=== PATIENT | male | born 1960 | race African-American/Black ===

== ENCOUNTER 2017-08-18 19:26 | Inpatient (IN) | payer OTHER ==
[2017-08-18] MEDS ORDERED: OXYCODONE-ACETAMINOPHEN 5-325 MG TABLET PO ONE (21:51)
--- NOTE | 2017-08-18 21:53 | ER Document Report ---
ED Medical Screen (RME) - General Chief Complaint: Leg Swelling Stated Complaint: LEG PAIN Time Seen by Provider: 08/18/17 21:29 Mode of Arrival: Wheelchair Information source: Patient Notes: Patient with a history of chronic kidney disease stage III, hypertension, diabetes, CHF and A. fib. Patient states that he has had left knee pain and right foot pain for the past 4 days. Patient complains of swelling to the left knee. Patient denies any injury. Patient does also complain of some fluid retention and does report some exertional shortness of breath. Patient without any chest pain. Patient denies any history of gout. Patient states that he did not take any of his morning medications today as he was having knee pain that prevented him from getting up to take his medications. TRAVEL OUTSIDE OF THE [place] IN LAST 30 DAYS: No - Related Data Allergies/Adverse Reactions: No Known Allergies Allergy (Unverified 08/18/17 20:00) Physical Exam - Vital signs Vitals: Temp Pulse Resp BP Pulse Ox 98.4 F 70 20 179/102 H 96 08/18/17 20:02 08/18/17 20:02 08/18/17 20:02 08/18/17 20:02 08/18/17 20:02 - Extremities General lower extremity: Tender - Left knee joint tenderness, large effusion, mild erythema to the medial aspect of left knee Course - Vital Signs Vital signs: Temp Pulse Resp BP Pulse Ox 98.4 F 70 20 179/102 H 96 08/18/17 20:02 08/18/17 20:02 08/18/17 20:02 08/18/17 20:02 08/18/17 20:02
[2017-08-18] MEDS ORDERED: FUROSEMIDE INJ/PF 20 MG/2 ML SDV IV ONE (22:05)
[2017-08-18 22:33] LABS: ABSOLUTE BASOPHILS # (AUTO) 0.1 10^3/uL (0.0-0.2); ABSOLUTE EOSINOPHILS # (AUTO) 0.3 10^3/uL (0.0-0.6); ABSOLUTE LYMPHOCYTES (AUTO) 1.5 10^3/uL (0.5-4.7); ABSOLUTE MONOCYTES (AUTO) 1.2 10^3/uL (0.1-1.4); ABSOLUTE NEUT (AUTO) 8.1 10^3/uL (1.7-8.2); BASOPHILS % (AUTO) 0.6 % (0-2); EOSINOPHILS % (AUTO) 3.1 % (0-6); HEMATOCRIT 43.2 % (37.9-51.0); HEMOGLOBIN 14.8 g/dL (13.5-17.0); HGB HCT DIFFERENCE 1.2; LYMPHOCYTES % (AUTO) 13.4 % (13-45); MEAN CORPUSCULAR HEMOGLOBIN 31.4 pg (27.0-33.4); MEAN CORPUSCULAR HGB CONC 34.2 g/dL (32.0-36.0); MEAN CORPUSCULAR VOLUME 92 fl (80-97); MONOCYTES % (AUTO) 10.4 % (3-13); RED CELL DISTRIBUTION WIDTH 14.1 % (11.5-14.0); SEGMENTED NEUTROPHILS % (AUTO) 72.5 % (42-78); WHITE BLOOD COUNT 11.1 10^3/uL (4.0-10.5)
[2017-08-18 22:53] LABS: ALANINE AMINOTRANSFERASE 105 U/L (21-72); ALKALINE PHOSPHATASE 162 U/L (38-126); ANION GAP 15 (5-19); ASPARTATE AMINO TRANSFERASE 44 U/L (17-59); BILIRUBIN,DIRECT 0.5 mg/dL (0.0-0.4); BILIRUBIN,TOTAL 1.1 mg/dL (0.2-1.3); BLOOD UREA NITROGEN 19 mg/dL (7-20); CALCIUM 9.2 mg/dL (8.4-10.2); CARBON DIOXIDE 24 mmol/L (22-30); CHLORIDE 107 mmol/L (98-107); CREATININE RESULT 1.78 mg/dL (0.52-1.25); GLUCOSE 110 mg/dL (75-110); POTASSIUM 4.2 mmol/L (3.6-5.0); SODIUM 145.5 mmol/L (137-145); TOTAL PROTEIN 7.7 g/dL (6.3-8.2); URIC ACID 5.9 mg/dL (3.5-8.5)
--- NOTE | 2017-08-18 23:06 | RADIOLOGY REPORT (SQ) ---
EXAM DESCRIPTION: CHEST PA/LAT COMPLETED DATE/TIME: 08/18/2017 10:58 pm REASON FOR STUDY: exertional sob COMPARISON: None. EXAM PARAMETERS: NUMBER OF VIEWS: two views TECHNIQUE: Digital Frontal and Lateral radiographic views of the chest acquired. RADIATION DOSE: NA LIMITATIONS: none FINDINGS: LUNGS AND PLEURA: No opacities, masses or pneumothorax. No pleural effusion. MEDIASTINUM AND HILAR STRUCTURES: No masses or contour abnormalities. HEART AND VASCULAR STRUCTURES: Heart normal size. No evidence for failure. BONES: No acute findings. HARDWARE: None in the chest. OTHER: No other significant finding. IMPRESSION: NO SIGNIFICANT RADIOGRAPHIC FINDING IN THE CHEST. TECHNICAL DOCUMENTATION: JOB ID: [id number] [employer]- All Rights Reserved
--- NOTE | 2017-08-18 23:06 | RADIOLOGY REPORT (SQ) ---
EXAM DESCRIPTION: FOOT RIGHT COMPLETE COMPLETED DATE/TIME: 08/18/2017 10:58 pm REASON FOR STUDY: r foot pain COMPARISON: None. NUMBER OF VIEWS: Three views. TECHNIQUE: AP, lateral and oblique without weight bearing radiographic images acquired of the right foot. LIMITATIONS: None. FINDINGS: MINERALIZATION: Normal. BONES: No acute fracture or dislocation. No worrisome bone lesions. No significant osteophytes. JOINTS: No erosions. No shelbi-articular osteopenia. No chondrocalcinosis. SOFT TISSUES: No swelling. No calcifications. OTHER: No other significant finding. IMPRESSION: NEGATIVE STUDY OF THE RIGHT FOOT. NO EXPLANATION FOR PAIN. TECHNICAL DOCUMENTATION: JOB ID: [id number] [employer]- All Rights Reserved
--- NOTE | 2017-08-18 23:07 | RADIOLOGY REPORT (SQ) ---
EXAM DESCRIPTION: KNEE LEFT 4 VIEW COMPLETED DATE/TIME: 08/18/2017 10:58 pm REASON FOR STUDY: knee pain, swelling COMPARISON: None. NUMBER OF VIEWS: Four views. TECHNIQUE: AP, lateral, and both oblique radiographic images acquired of the left knee. LIMITATIONS: None. FINDINGS: MINERALIZATION: Normal. BONES: No acute fracture or dislocation. No worrisome bone lesions. Joint space narrowing with osteop hytes, most prominent in the patellofemoral compartment. JOINT: No effusion. No chondrocalcinosis. OTHER: No other significant finding. IMPRESSION: DEGENERATIVE JOINT DISEASE. TECHNICAL DOCUMENTATION: JOB ID: [id number] [employer]- All Rights Reserved
--- NOTE | 2017-08-19 00:48 | ER Document Report ---
ED General - General Chief Complaint: Leg Swelling Stated Complaint: LEG PAIN Time Seen by Provider: 08/18/17 21:29 Mode of Arrival: Wheelchair Notes: Patient is a 57-year-old male who presents with complaint of gradual worsening pain and swelling in his left knee for approximately 3 days. Says some subjective fevers but has not checked his temp. He said he also had some slight pain in his ankle but that went away. He has edema in both lower extremities and says that he is on Lasix and has a history of CHF. He also has history of atrial fibrillation and takes Coumadin. Patient says he did not take his Coumadin or his nighttime medications today. His primary care provider is Yumiko Ramos. He denies any recent trauma or injuries to the knee. He denies history of gout. He denies history of surgeries on the knee. TRAVEL OUTSIDE OF THE [place] IN LAST 30 DAYS: No - Related Data Allergies/Adverse Reactions: No Known Allergies Allergy (Unverified 08/18/17 20:00) Past Medical History - General Information source: Patient - Social History Smoking Status: Never Smoker Frequency of alcohol use: None Drug Abuse: None Family History: Reviewed & Not Pertinent Review of Systems - Review of Systems Notes: My Normal Review Basic REVIEW OF SYSTEMS: CONSTITUTIONAL : Some subjective fever EENT: Denies eye, ear, throat, or mouth pain or symptoms. Denies nasal or sinus congestion. RESPIRATORY: Denies cough, cold, or chest congestion. Denies shortness of breath, difficulty breathing, or wheezing. GASTROINTESTINAL: Denies abdominal pain. Denies nausea, vomiting, or diarrhea. Denies constipation. Last BM: MUSCULOSKELETAL: Left knee pain and swelling. SKIN: Denies rash or skin lesions. NEUROLOGICAL: Denies altered mental status or loss of consciousness. Denies headache. Denies weakness or paralysis or loss of use of either side. Denies problems with gait or speech. Denies sensory or motor loss. ALL OTHER SYSTEMS REVIEWED AND NEGATIVE. Physical Exam - Vital signs Vitals: Temp Pulse Resp BP Pulse Ox 98.4 F 70 20 179/102 H 96 08/18/17 20:02 08/18/17 20:02 08/18/17 20:02 08/18/17 20:02 08/18/17 20:02 - Notes Notes: General Appearance: Well nourished, alert, cooperative, no acute distress, moderate obvious discomfort. Vitals: reviewed, See vital signs table. Head: no swelling or tenderness to the head Eyes: PERRL, EOMI, Conjuctiva clear Mouth: No decreasd moisture Neck: Supple, no neck tenderness Lungs: No wheezing, No rales, No rhonci, No accessory muscle use, good air exchange bilaterally. Heart: Normal rate, Regular rythm, No murmur, no rub Abdomen: Normal BS, soft, No rigidity, No abdominal tenderness, No guarding, no rebound, no abdominal masses, no organomegaly Extremities: strength 5/5 in all extremities, good pulses in all extremities, patient has a red hot swollen left knee. She states held in extension and I am unable to flex it. Patient has 1+ bilateral lower extremity edema. Skin: warm, dry, appropriate color, no rash Neuro: speech clear, oriented x 3, normal affect, responds appropriately to questions. Course - Re-evaluation Re-evalutation: 08/19/17 00:47 I discussed the case with Dr. baron, orthopedic surgeon contact lens assistant. Informed him that even though the patient's white blood cell counts are very elevated and still concern for possibility of septic joint being that his ESR is elevated and clinically his knee is hot red swollen and I am unable to flex it at all. His he is on Coumadin but his INR is only 1.4. Did not take his Coumadin dose today. Dr. Newman feels that is safe for me to attempt aspiration of the knee with an INR of 1.4. We will attempt aspiration. 08/19/17 03:21 Patient synovial fluid analysis came back with a white blood cell count 37,500 with 91% neutrophil predominance. This is indeterminate for septic arthritis but there is more white blood cells than to be expected for a typical inflammatory process. There are no crystals and therefore is highly unlikely to be gout. There is 91% neutrophils. I did call back and speak with Dr. Newman, orthopedic surgeon, who agrees this that this could still be potentially septic arthritis and therefore requests that admit the patient medicine he will see the patient first thing in the morning. I did explain the plan to the patient and he is agreeable to it. Patient has multiple chronic medical problems and therefore I did call the on-call hospitalist, Dr. Juan, who agrees to admit the patient with or without consult. 08/19/17 03:24 Dictation of this chart was performed using voice recognition software; therefore, there may be some unintended grammatical errors. - Vital Signs Vital signs: Temp Pulse Resp BP Pulse Ox 98.4 F 64 16 168/99 H 96 08/18/17 20:02 08/18/17 23:00 08/18/17 23:00 08/18/17 23:00 08/18/17 20:02 - Laboratory Result Diagrams: 08/18/17 22:25 08/18/17 22:25 Laboratory results interpreted by me: 08/18/17 08/18/17 08/18/17 22:25 22:25 22:25 WBC 11.1 H RDW 14.1 H Plt Count 133 L ESR PT 18.0 H Sodium 145.5 H Creatinine 1.78 H Est GFR ( Amer) 48 L Est GFR (Non-Af Amer) 40 L Direct Bilirubin 0.5 H ALT 105 H Alkaline Phosphatase 162 H NT-Pro-B Natriuret Pep 08/18/17 08/18/17 22:25 22:25 WBC RDW Plt Count ESR 57 H PT Sodium Creatinine Est GFR ( Amer) Est GFR (Non-Af Amer) Direct Bilirubin ALT Alkaline Phosphatase NT-Pro-B Natriuret Pep 2430 H Procedures - Joint Aspiration left knee Consent obtained: Yes - verbal Joint aspiration pre-procedure: Chloraprep applied Needle size: 18 Amount/type of drainage: 20mls of cloudy yellow fluid Number of attempts: 1 Complications: No Discharge - Discharge Clinical Impression: Septic arthritis of knee, left Qualifiers: Septic arthritis organism: due to unspecified organism Qualified Code(s): M00.9 - Pyogenic arthritis, unspecified Condition: Stable Disposition: ADMITTED INPATIENT Admitting Provider: Hospitalist Unit Admitted: Medical Floor
[2017-08-19] MEDS ORDERED: CEFTRIAXONE INJ 1000 MG VIAL IV ONE (02:09)
[2017-08-19 02:21] LABS: OTHER CRYSTALS NONE OBSERVED
[2017-08-19] MEDS ORDERED: CEFTRIAXONE 1 GM/D5W RTU 1 GM/50 ML RTUPB IV ONE (02:23)
[2017-08-19 02:40] LABS: FLUID TYPE SYNOVIAL; STAIN REACTIVITY CHECK ACCEPTABLE
[2017-08-19 02:41] LABS: FLUID APPEARANCE SLIGHTLY HAZY
[2017-08-19 02:42] LABS: FLUID RBC DILUENT USED SALINE; FLUID RBC DILUTION FACTOR 20
[2017-08-19] MEDS ORDERED: VANCOMYCIN HCL INJ 1000 MG VIAL IV ONE (02:47)
[2017-08-19 02:54] LABS: FLUID RBC AVERAGE 6.5; FLUID RBC SIDE 1 6; FLUID RBC SIDE 2 7
[2017-08-19 02:59] LABS: TOTAL RBC SQUARES COUNTED FLD 5
[2017-08-19] MEDS ORDERED: NORMAL SALINE 1000 ML 1,000 ML IV PRN (03:21)
[2017-08-19] MEDS ORDERED: ONDANSETRON HCL INJ/PF 4 MG/2 ML SDV IV PRN (03:21)
[2017-08-19] MEDS ORDERED: OXYCODONE-ACETAMINOPHEN 5-325 MG TABLET PO PRN (03:21)
[2017-08-19] MEDS ORDERED: ACETAMINOPHEN 325 MG TABLET PO PRN (03:21)
[2017-08-19] MEDS ORDERED: HEPARIN SODIUM,PORCINE/D5W 25,000 UNIT/250 ML RTUINJ IV PRN (03:27)
[2017-08-19] MEDS ORDERED: HEPARIN SOD (PORCINE) 1,000 UNIT/ML 10 ML VIAL IV ONE (03:27)
[2017-08-19] MEDS ORDERED: INSULIN LISPRO 100 UNIT/ML 3 ML VIAL SUBCUT PRN (03:31)
[2017-08-19] MEDS ORDERED: DEXTROSE 40% GEL 15 GM TUBE PO PRN ×4 (03:31→08:41)
[2017-08-19] MEDS ORDERED: GLUCAGON,HUMAN RECOMB 1 MG INJ IM PRN (03:31)
[2017-08-19] MEDS ORDERED: DEXTROSE 50%-WATER 25 GM/50 ML DISP.SYRIN IV PRN ×4 (03:31→08:41)
[2017-08-19] MEDS ORDERED: VANCOMYCIN HCL 0 MG in DEXTROSE 5%-WATER 250 ML IV NR (03:45)
[2017-08-19] MEDS ORDERED: PHARMACY COMMUNICATION ORDER MC NR (03:45)
[2017-08-19] MEDS ORDERED: VANCOMYCIN HCL INJ 1000 MG VIAL IV PRN (04:02)
--- NOTE | 2017-08-19 04:41 | PDOC H&P ---
History of Present Illness Admission Date/PCP: 08/19/17 03:42 FLACA Patterson History of Present Illness: JOON AHMADI is a 57 year old male with a past medical history of diabetes mellitus, hypertension, atrial fibrillation on Coumadin, congestive heart failure, chronic kidney disease stage III, obstructive sleep apnea untreated, and recent CVA who presents to the emergency department with complaints of left knee swelling since Sunday. Patient reported that he started developing a fever and chills starting today. He reports that he is also had increasing dyspnea on exertion as well as bilateral lower extremity swelling. 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 Patient reports that since that time he has been having some lower extremity swelling as well as testicular swelling and abdominal distention. He recently reported to nephrology who informed him of CKD stage III. Arthrocentesis was performed in the emergency department by Dr. Lucio and a large amount of turbid fluid was removed which points towards septic arthritis. He is referred to the hospitalist service for this. Patient's medications are currently undergoing reconciliation, but bedside review reveals amiodarone 200 mg p.o. twice daily, metformin 500 mg p.o. daily, warfarin 3 mg p.o. every other day, potassium chloride 20 mg p.o. daily, Lasix 40 mg p.o. daily, Coreg 25 mg p.o. twice daily, pravastatin 20 mg p.o. nightly Past Medical History Cardiac Medical History: Reports: Atrial Fibrillation, Congestive Heart Failure , Coronary Artery Disease, Hyperlipidema, Hypertension Pulmonary Medical History: Reports: Sleep Apnea Neurological Medical History: Reports: Ischemic CVA Endocrine Medical History: Reports: Diabetes Mellitus Type 2, Obesity Renal/ Medical History: Reports: Chronic Kidney Disease Musculoskeltal Medical History: Reports: Arthritis Past Surgical History Past Surgical History: Reports: Appendectomy Social History Smoking Status: Never Smoker Frequency of Alcohol Use: None Hx Recreational Drug Use: No Hx Prescription Drug Abuse: No - Advance Directive Resuscitation Status: Full Code Surrogate healthcare decision maker:: Nata Ahmadi, Family History Family History: COPD, DM Parental Family History Reviewed: Yes Children Family History Reviewed: Yes Sibling(s) Family History Reviewed.: Yes Medication/Allergy Home Medications: Amiodarone HCl [Cordarone 200 mg Tablet] 08/19/17 Carvedilol [Carvedilol] 08/19/17 Allergies/Adverse Reactions: No Known Allergies Allergy (Unverified 08/18/17 20:00) Review of Systems Constitutional: PRESENT: chills, fatigue, fever(s), weight gain. ABSENT: headache(s), weight loss Eyes: ABSENT: visual disturbances Ears: ABSENT: hearing changes Cardiovascular: PRESENT: dyspnea on exertion, edema, orthropnea. ABSENT: chest pain, palpitations Respiratory: ABSENT: cough, dyspnea, hemoptysis, sputum Gastrointestinal: PRESENT: bloating. ABSENT: abdominal pain, constipation, diarrhea, heartburn, hematemesis, hematochezia, melena, nausea, vomiting Genitourinary: ABSENT: dysuria, hematuria Musculoskeletal: PRESENT: joint swelling Integumentary: ABSENT: rash, wounds Neurological: ABSENT: abnormal gait, abnormal speech, confusion, dizziness, focal weakness, syncope Psychiatric: ABSENT: anxiety, depression, homidical ideation, suicidal ideation Endocrine: ABSENT: cold intolerance, heat intolerance, polydipsia, polyuria Hematologic/Lymphatic: ABSENT: easy bleeding, easy bruising Physical Exam Vital Signs: Temp Pulse Resp BP Pulse Ox 98.4 F 54 L 20 121/85 96 08/19/17 03:41 08/19/17 03:41 08/19/17 03:41 08/19/17 03:41 08/19/17 03:41 General appearance: PRESENT: no acute distress, morbidly obese, well-developed, well-nourished Head exam: PRESENT: atraumatic, normocephalic Eye exam: PRESENT: conjunctiva pink, EOMI, PERRLA. ABSENT: scleral icterus Ear exam: PRESENT: normal external ear exam Mouth exam: PRESENT: moist, tongue midline Neck exam: ABSENT: JVD, lymphadenopathy, thyromegaly, tracheal deviation Respiratory exam: PRESENT: crackles, symmetrical, unlabored. ABSENT: prolonged expiratory phas, rales, retraction, rhonchi, tachypnea, wheezes Cardiovascular exam: PRESENT: irregular rhythm, +S1, +S2, systolic murmur. ABSENT: diastolic murmur, rubs Pulses: PRESENT: normal dorsalis pedis pul Vascular exam: PRESENT: normal capillary refill GI/Abdominal exam: PRESENT: distended, hypoactive bowel sounds, soft. ABSENT: firm, guarding, mass, Potter's sign, organolmegaly, rebound, rigid, tenderness Rectal exam: PRESENT: deferred Extremities exam: PRESENT: full ROM, pedal edema. ABSENT: calf tenderness, clubbing Musculoskeletal exam: PRESENT: tenderness - Warmth, tenderness, erythema over left knee Neurological exam: PRESENT: alert, awake, oriented to person, oriented to place , oriented to time, oriented to situation, CN II-XII grossly intact. ABSENT: motor sensory deficit Psychiatric exam: PRESENT: appropriate affect, normal mood. ABSENT: homicidal ideation, suicidal ideation Skin exam: PRESENT: dry, intact, warm. ABSENT: cyanosis, rash Results Laboratory Results: 08/18/17 08/18/17 08/18/17 22:25 22:25 22:25 WBC 11.1 H Hgb 14.8 Plt Count 133 L ESR INR 1.40 Creatinine 1.78 H Direct Bilirubin 0.5 H ALT 105 H Alkaline Phosphatase 162 H C-Reactive Protein NT-Pro-B Natriuret Pep Albumin 4.0 Fluid Type Fluid Source Fluid Color Fluid Appearance Fluid Viscosity Fluid WBC Fluid RBC Fluid Seg Neutrophils Fluid Monocytes Fluid Crystals Ca Pyrophosphate Cryst Synov Monosodium Urate 08/18/17 08/18/17 08/18/17 22:25 22:25 22:25 WBC Hgb Plt Count ESR 57 H INR Creatinine Direct Bilirubin ALT Alkaline Phosphatase C-Reactive Protein 76.6 H NT-Pro-B Natriuret Pep 2430 H Albumin Fluid Type Fluid Source Fluid Color Fluid Appearance Fluid Viscosity Fluid WBC Fluid RBC Fluid Seg Neutrophils Fluid Monocytes Fluid Crystals Ca Pyrophosphate Cryst Synov Monosodium Urate 08/19/17 08/19/17 01:16 01:16 WBC Hgb Plt Count ESR INR Creatinine Direct Bilirubin ALT Alkaline Phosphatase C-Reactive Protein NT-Pro-B Natriuret Pep Albumin Fluid Type SYNOVIAL Fluid Source KNEE Fluid Color PINK Fluid Appearance SLIGHTLY HAZY Fluid Viscosity MODERATELY VISCOUS Fluid WBC 15390 Fluid RBC 6500 Fluid Seg Neutrophils 91 Fluid Monocytes 9 Fluid Crystals NONE OBSERVED Ca Pyrophosphate Cryst NONE OBSERVED Synov Monosodium Urate NONE OBSERVED Impressions: Chest X-Ray 08/18/17 21:51 IMPRESSION: NO SIGNIFICANT RADIOGRAPHIC FINDING IN THE CHEST. Foot X-Ray 08/18/17 21:51 IMPRESSION: NEGATIVE STUDY OF THE RIGHT FOOT. NO EXPLANATION FOR PAIN. Knee X-Ray 08/18/17 21:51 IMPRESSION: DEGENERATIVE JOINT DISEASE. Status: Imported from PACS Assessment & Plan - Diagnosis (1) Septic arthritis of knee, left Qualifiers: Septic arthritis organism: due to unspecified organism Qualified Code(s): M00.9 - Pyogenic arthritis, unspecified Is this a current diagnosis for this admission?: Yes Plan: The patient himself does not meet criteria for sepsis, patient does have septic arthritis of the knee. Will place patient on Rocephin and vancomycin and consult orthopedic surgery. Cultures currently pending. (2) Diabetes mellitus Qualifiers: Diabetes mellitus type: type 2 Diabetes mellitus complication status: with kidney complications Diabetes mellitus complication detail: with chronic kidney disease Diabetes mellitus residential insulin use: without residential use Chronic kidney disease stage: stage 3 (moderate) Qualified Code(s): E11.22 - Type 2 diabetes mellitus with diabetic chronic kidney disease; N18.3 - Chronic kidney disease, stage 3 (moderate); N18.3 - Chronic kidney disease, stage 3 (moderate) Is this a current diagnosis for this admission?: Yes Plan: Place patient on Accu-Cheks and sliding scale insulin. patient's creatinine will not tolerate metformin at this time. Will use glimepiride if needed. (3) CKD (chronic kidney disease), stage III Is this a current diagnosis for this admission?: Yes Plan: Renally adjust medications (4) Hypertension Qualifiers: Hypertension type: essential hypertension Qualified Code(s): I10 - Essential (primary) hypertension Is this a current diagnosis for this admission?: Yes Plan: Continue home lisinopril and Coreg. (5) Hyperlipidemia associated with type 2 diabetes mellitus Is this a current diagnosis for this admission?: Yes Plan: Continue pravastatin (6) Obstructive sleep apnea Is this a current diagnosis for this admission?: Yes Plan: Will place his settings for CPAP (7) Morbid obesity with BMI of 40.0-44.9, adult Is this a current diagnosis for this admission?: Yes (8) Atrial fibrillation Qualifiers: Atrial fibrillation type: chronic Qualified Code(s): I48.2 - Chronic atrial fibrillation Is this a current diagnosis for this admission?: Yes Plan: Patient is currently subtherapeutic and his INR due to his kidney function will have to place him on a heparin drip and resume his Coumadin. Patient is on amiodarone and Coreg for this. (9) Congestive heart failure Qualifiers: Congestive heart failure type: unspecified congestive heart failure type Congestive heart failure chronicity: chronic Qualified Code(s): I50.9 - Heart failure, unspecified Is this a current diagnosis for this admission?: Yes Plan: Continue Lasix, Coreg, lisinopril. Would recommend echo if patient does need to go to surgery. - Time Time Spent: 50 to 70 Minutes Medications reviewed and adjusted accordingly: Yes Anticipated discharge: Home with Homehealth Within: Other - Upon improvement of symptomatology - Inpatient Certification Based on my medical assessment, after consideration of the patient's comorbidities, presenting symptoms, or acuity I expect that the services needed warrant INPATIENT care.: Yes I certify that my determination is in accordance with my understanding of Medicare's requirements for reasonable and necessary INPATIENT services [42 CFR 412.3e].: Yes Medical Necessity: Need for IV Antibiotics, Need for Surgery 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
[2017-08-19] MEDS ORDERED: VANCOMYCIN HCL 1,000 MG in DEXTROSE 5%-WATER 250 ML IV ONE (05:00)
[2017-08-19] MEDS ORDERED: HEPARIN SOD (PORCINE) 1,000 UNIT/ML 10 ML VIAL IV PRN ×2 (06:27→09:29)
[2017-08-19 06:55] LABS: PROTHROMBIN TIME 18.2 SEC (11.4-15.4)
[2017-08-19 07:07] LABS: ABSOLUTE BASOPHILS # (AUTO) 0.1 10^3/uL (0.0-0.2); ABSOLUTE EOSINOPHILS # (AUTO) 0.3 10^3/uL (0.0-0.6); ABSOLUTE LYMPHOCYTES (AUTO) 1.7 10^3/uL (0.5-4.7); ABSOLUTE NEUT (AUTO) 6.9 10^3/uL (1.7-8.2); EOSINOPHILS % (AUTO) 2.5 % (0-6); LYMPHOCYTES % (AUTO) 17.4 % (13-45); MEAN CORPUSCULAR HEMOGLOBIN 31.2 pg (27.0-33.4); MEAN CORPUSCULAR HGB CONC 34.1 g/dL (32.0-36.0); MEAN CORPUSCULAR VOLUME 91 fl (80-97); MONOCYTES % (AUTO) 10.2 % (3-13); RED BLOOD COUNT 4.49 10^6/uL (4.35-5.55); SEGMENTED NEUTROPHILS % (AUTO) 68.9 % (42-78)
[2017-08-19 07:33] LABS: PARTIAL THROMBOPLASTIN TIME 151.2 SEC (23.5-35.8)
[2017-08-19] MEDS ORDERED: GLUCAGON,HUMAN RECOMB 1 MG INJ SUBCUT PRN (08:41)
--- NOTE | 2017-08-19 08:59 | PDOC CONSULTATION ---
History of Present Illness Admission Date/PCP: 08/19/17 03:42 Patient complains of: Left knee pain History of Present Illness: JOON JANG is a 57 year old male presented to the emergency room with pain and swelling of his left knee. He states the pain and swelling began Sunday he has had 2 other episodes of fairly similar complaints but states they had subsided after 3 or 4 days in the previous instances. He states in this occurrence he was forced by his family for further evaluation of his issues. In the emergency room patient underwent aspiration which was sent for culture sensitivity and cell count. Patient states his pain is worse with motion or attempted ambulation. He has noticed some fever and chills over the past 24 hours. Pain 9/10 with motion. Denies specific injury to his left knee. Of note patient recently sustained an acute CVA and is currently on chronic Coumadin therapy. Past Medical History Cardiac Medical History: Reports: Atrial Fibrillation, Congestive Heart Failure , Coronary Artery Disease, Hyperlipidema, Hypertension Pulmonary Medical History: Reports: Sleep Apnea Neurological Medical History: Reports: Ischemic CVA Endocrine Medical History: Reports: Diabetes Mellitus Type 2, Obesity Renal/ Medical History: Reports: Chronic Kidney Disease Musculoskeltal Medical History: Reports: Arthritis Psychiatric Medical History: Denies: Depression Past Surgical History Past Surgical History: Reports: Appendectomy Social History Smoking Status: Never Smoker Frequency of Alcohol Use: None Hx Recreational Drug Use: No Drugs: None Hx Prescription Drug Abuse: No - Advance Directive Resuscitation Status: Full Code Family History Family History: COPD, DM Parental Family History Reviewed: No Children Family History Reviewed: No Sibling(s) Family History Reviewed.: No Medication/Allergy Home Medications: Amiodarone HCl [Cordarone 200 mg Tablet] 200 mg PO BID 08/19/17 Carvedilol [Carvedilol] 25 mg PO BID 08/19/17 Furosemide [Lasix] 40 mg PO DAILY 08/19/17 Lisinopril 20 mg PO BID 08/19/17 Potassium Citrate [Potassium Citrate ER] 20 meq PO DAILY 08/19/17 Pravastatin Sodium 20 mg PO QHS 08/19/17 Warfarin Sodium 3 mg PO ASDIR PRN 08/19/17 Allergies/Adverse Reactions: No Known Allergies Allergy (Unverified 08/18/17 20:00) Review of Systems Constitutional: PRESENT: chills, fever(s) Eyes: ABSENT: visual disturbances Ears: ABSENT: hearing changes Cardiovascular: PRESENT: dyspnea on exertion, orthropnea. ABSENT: chest pain, edema, palpitations Respiratory: ABSENT: cough, hemoptysis Gastrointestinal: ABSENT: abdominal pain, constipation, diarrhea, hematemesis, hematochezia, nausea, vomiting Genitourinary: ABSENT: dysuria, hematuria Integumentary: ABSENT: rash, wounds Neurological: ABSENT: abnormal gait, abnormal speech, confusion, dizziness, focal weakness, syncope Psychiatric: ABSENT: anxiety, depression, homidical ideation, suicidal ideation Endocrine: ABSENT: cold intolerance, heat intolerance, menstrual abnormalities, polydipsia, polyuria Hematologic/Lymphatic: ABSENT: easy bleeding, easy bruising, lymphadenopathy Physical Exam Vital Signs: Temp Pulse Resp BP Pulse Ox 97.8 F 51 L 18 141/78 H 97 08/19/17 08:02 08/19/17 08:02 08/19/17 08:02 08/19/17 08:02 08/19/17 08:02 Intake & Output 08/18/17 08/19/17 08/20/17 06:59 06:59 06:59 Weight 124.9 kg General appearance: PRESENT: no acute distress, cooperative, obese, well- developed, well-nourished Head exam: PRESENT: atraumatic, normocephalic Eye exam: PRESENT: conjunctiva pink, EOMI, PERRLA. ABSENT: scleral icterus Ear exam: PRESENT: normal external ear exam Mouth exam: PRESENT: moist, tongue midline Neck exam: PRESENT: full ROM. ABSENT: carotid bruit, JVD, lymphadenopathy, thyromegaly Respiratory exam: PRESENT: unlabored Cardiovascular exam: PRESENT: irregular rhythm. ABSENT: diastolic murmur, rubs , systolic murmur Pulses: PRESENT: normal dorsalis pedis pul, +2 pedal pulses bilateral Vascular exam: PRESENT: normal capillary refill GI/Abdominal exam: PRESENT: normal bowel sounds, soft. ABSENT: distended, guarding, mass, organolmegaly, rebound, tenderness Rectal exam: PRESENT: deferred Musculoskeletal exam: PRESENT: other - Left knee: Notable effusion with warmth compared to right knee. No suprapatellar tenderness. Exquisite tenderness medially. Pain with attempted range of motion. No calf tenderness. No posterior joint line tenderness. No open wound appreciated. Intact plantar flexion/dorsiflexion. Neurological exam: PRESENT: alert, awake, oriented to person, oriented to place , oriented to time, oriented to situation, CN II-XII grossly intact. ABSENT: motor sensory deficit Psychiatric exam: PRESENT: appropriate affect, normal mood. ABSENT: homicidal ideation, suicidal ideation Skin exam: PRESENT: dry, intact, warm. ABSENT: cyanosis, rash Results Laboratory Results: 08/19/17 06:28 08/19/17 06:28 WBC 10.0 RBC 4.49 Hgb 14.0 Hct 41.0 MCV 91 MCH 31.2 MCHC 34.1 RDW 14.0 Plt Count 121 L Seg Neutrophils % 68.9 Lymphocytes % 17.4 Monocytes % 10.2 Eosinophils % 2.5 Basophils % 1.0 Absolute Neutrophils 6.9 Absolute Lymphocytes 1.7 Absolute Monocytes 1.0 Absolute Eosinophils 0.3 Absolute Basophils 0.1 Impressions: Chest X-Ray 08/18/17 21:51 IMPRESSION: NO SIGNIFICANT RADIOGRAPHIC FINDING IN THE CHEST. Foot X-Ray 08/18/17 21:51 IMPRESSION: NEGATIVE STUDY OF THE RIGHT FOOT. NO EXPLANATION FOR PAIN. Knee X-Ray 08/18/17 21:51 IMPRESSION: DEGENERATIVE JOINT DISEASE. Status: Image reviewed by wv - I have reviewed patient's radiographs which demonstrate advanced degenerative changes of the knee which are tricomponent compartmental tricompartmental Assessment & Plan - Diagnosis (1) Septic arthritis of knee, left Qualifiers: Septic arthritis organism: due to unspecified organism Qualified Code(s): M00.9 - Pyogenic arthritis, unspecified Is this a current diagnosis for this admission?: Yes Plan: Patient has a somewhat cloudy picture in terms of definitive cause of his knee pain and swelling but given his fever/chills along with elevated neutrophil count on aspiration this is consistent with possibility of septic arthritis however his 35,000 leukocyte count is somewhat equivocal in nature. But given the concerns of possible septic arthritis I have recommended operative intervention which includes arthroscopic irrigation and debridement. However given his elevated aPTT this would be an absolute contraindication to operative intervention at this juncture furthermore patient has multiple comorbidities including cardiac disease and congestive heart failure it was recommended by the hospitalist service he obtain a cardiology consult and echo prior to operative intervention thus in weighing the risks and benefits of operative treatment today versus in 24 hours given the fact patient remains stable and currently patient does not meet criteria for sepsis I have recommended further medical workup and proceeding with operative intervention within 24 hours however if patient becomes septic would consider more acute operative treatment.
[2017-08-19 09:51] LABS: APPEARANCE,URINE CLEAR; BILIRUBIN,URINE NEGATIVE (NEGATIVE); GLUCOSE, URINE NEGATIVE (NEGATIVE); KETONES,URINE NEGATIVE (NEGATIVE); LEUKOCYTE ESTERASE,URINE NEGATIVE (NEGATIVE); NITRITE,URINE NEGATIVE (NEGATIVE); PROTEIN,URINE 30 mg/dL (NEGATIVE); URINE SPECIFIC GRAVITY 1.027; UROBILINOGEN,URINE NEGATIVE mg/dL (<2.0)
--- NOTE | 2017-08-19 10:14 | PDOC PROGRESS REPORT ---
Subjective Progress Note for:: 08/19/17 Subjective:: This is a follow-up visit for left septic knee. Patient feels that the swelling is less but still has some soreness there. I spoke with Dr. baron this morning who was concerned about his elevated PTT. For this reason patient will not go for washout today but likely tomorrow. Physical Exam Vital Signs: Temp Pulse Resp BP Pulse Ox 97.8 F 51 L 18 141/78 H 97 08/19/17 08:02 08/19/17 08:02 08/19/17 08:02 08/19/17 08:02 08/19/17 08:02 Intake & Output 08/18/17 08/19/17 08/20/17 06:59 06:59 06:59 Weight 124.9 kg GENERAL: This is a well-developed well-nourished obese -[place] male resting in bed currently in no acute distress. HEART: Regular rate and rhythm. No murmurs, rubs or gallops. LUNGS: Clear to auscultation bilaterally with equal rise and fall of the chest. ABDOMEN: Soft, nontender, nondistended with normoactive bowel sounds EXTREMETIES: No clubbing, cyanosis. The left knee looks slightly swollen as compared to the right. There is minimal warmth on palpation. I do not detect any streaking or erythema. 2+ peripheral pulses bilaterally. NEURO: Awake, alert and oriented 3. Cranial nerves II through XII are grossly intact. Results Laboratory Results: 08/19/17 06:28 08/19/17 06:28 WBC 10.0 RBC 4.49 Hgb 14.0 Hct 41.0 MCV 91 MCH 31.2 MCHC 34.1 RDW 14.0 Plt Count 121 L Seg Neutrophils % 68.9 Lymphocytes % 17.4 Monocytes % 10.2 Eosinophils % 2.5 Basophils % 1.0 Absolute Neutrophils 6.9 Absolute Lymphocytes 1.7 Absolute Monocytes 1.0 Absolute Eosinophils 0.3 Absolute Basophils 0.1 Impressions: Chest X-Ray 08/18/17 21:51 IMPRESSION: NO SIGNIFICANT RADIOGRAPHIC FINDING IN THE CHEST. Foot X-Ray 08/18/17 21:51 IMPRESSION: NEGATIVE STUDY OF THE RIGHT FOOT. NO EXPLANATION FOR PAIN. Knee X-Ray 08/18/17 21:51 IMPRESSION: DEGENERATIVE JOINT DISEASE. Assessment & Plan - Diagnosis (1) Septic arthritis of knee, left Qualifiers: Septic arthritis organism: due to unspecified organism Qualified Code(s): M00.9 - Pyogenic arthritis, unspecified Is this a current diagnosis for this admission?: Yes Plan: Plan for washout tomorrow. Tap is already been done and cultures are pending. Dr. Newman requests medical clearance. We will need to wait until the PTT is down. Discontinue heparin drip 6 hours for any planned procedure. (2) CVA (cerebral vascular accident) Qualifiers: CVA mechanism: unspecified Qualified Code(s): I63.9 - Cerebral infarction, unspecified Plan: Is unknown what type of stroke the patient had. Apparently this happened and workup was done [place] month ago. Is unclear if this is related to his A. fib. See management as per A. fib diagnosis. (3) Atrial fibrillation Qualifiers: Atrial fibrillation type: chronic Qualified Code(s): I48.2 - Chronic atrial fibrillation Is this a current diagnosis for this admission?: Yes Plan: The patient is currently on a heparin drip. It looks like he was over bolused on admission. PT is elevated. Heparin has been stopped. I have asked the nursing staff to recheck his labs at noon and based on those labs restart his heparin drip without bolus. Given that he had a stroke last month (as per his report), maintaining him on a heparin drip is important. It is unclear as to whether or not his stroke was precipitated by his A. fib. Patient should be maintained on a heparin drip up until 6 hours prior to any planned procedure tomorrow. Will need to check with Dr. baron to see potentially what time that could be. (4) CKD (chronic kidney disease), stage III Is this a current diagnosis for this admission?: Yes Plan: Stable. Continue amiodarone. Resume Coumadin as appropriate. (5) Congestive heart failure Qualifiers: Congestive heart failure type: unspecified congestive heart failure type Congestive heart failure chronicity: chronic Qualified Code(s): I50.9 - Heart failure, unspecified Is this a current diagnosis for this admission?: Yes Plan: Continue Lasix, lisinopril, carvedilol (6) Diabetes mellitus Qualifiers: Diabetes mellitus type: type 2 Diabetes mellitus complication status: with kidney complications Diabetes mellitus complication detail: with chronic kidney disease Diabetes mellitus terminal gauger insulin use: without terminal gauger use Chronic kidney disease stage: stage 3 (moderate) Qualified Code(s): E11.22 - Type 2 diabetes mellitus with diabetic chronic kidney disease; N18.3 - Chronic kidney disease, stage 3 (moderate); N18.3 - Chronic kidney disease, stage 3 (moderate) Is this a current diagnosis for this admission?: Yes Plan: Continue current regimen. N.p.o. after midnight. (7) Hyperlipidemia associated with type 2 diabetes mellitus Is this a current diagnosis for this admission?: Yes Plan: Continue nystatin. (8) Hypertension Qualifiers: Hypertension type: essential hypertension Qualified Code(s): I10 - Essential (primary) hypertension Is this a current diagnosis for this admission?: Yes Plan: Continue home medications. (9) Morbid obesity with BMI of 40.0-44.9, adult Is this a current diagnosis for this admission?: Yes (10) Obstructive sleep apnea Is this a current diagnosis for this admission?: Yes Plan: Weight loss through dietary changes and exercise as tolerated. - Time Time Spent with patient: 25-34 minutes
[2017-08-19] MEDS ORDERED: (PENDING PHARMACY ID) (Carvedilol [Carvedilol] 25 MG) PO SCH (10:15)
[2017-08-19] MEDS ORDERED: AMIODARONE HCL 200 MG TABLET PO ONE (11:00)
[2017-08-19] MEDS: DOCUSATE SODIUM 100 MG CAPSULE PO SCH ×2 (11:08→17:44)
[2017-08-19] MEDS: CEFTRIAXONE 2 GM/D5W RTU 2 GM/50 ML RTUPB IV SCH (11:09)
[2017-08-19 12:57] LABS: ABSOLUTE EOSINOPHILS # (AUTO) 0.3 10^3/uL (0.0-0.6); ABSOLUTE LYMPHOCYTES (AUTO) 1.5 10^3/uL (0.5-4.7); ABSOLUTE MONOCYTES (AUTO) 1.2 10^3/uL (0.1-1.4); BASOPHILS % (AUTO) 0.5 % (0-2); EOSINOPHILS % (AUTO) 3.1 % (0-6); HEMATOCRIT 41.9 % (37.9-51.0); HEMOGLOBIN 14.3 g/dL (13.5-17.0); LYMPHOCYTES % (AUTO) 15.2 % (13-45); MEAN CORPUSCULAR HEMOGLOBIN 31.6 pg (27.0-33.4); MEAN CORPUSCULAR HGB CONC 34.2 g/dL (32.0-36.0); MEAN CORPUSCULAR VOLUME 92 fl (80-97); RED BLOOD COUNT 4.54 10^6/uL (4.35-5.55); RED CELL DISTRIBUTION WIDTH 14.1 % (11.5-14.0); SEGMENTED NEUTROPHILS % (AUTO) 69.2 % (42-78); WHITE BLOOD COUNT 10.1 10^3/uL (4.0-10.5)
[2017-08-19 13:07] LABS: PROTHROMBIN TIME 16.6 SEC (11.4-15.4)
[2017-08-19 13:08] LABS: PARTIAL THROMBOPLASTIN TIME 36.6 SEC (23.5-35.8)
[2017-08-19] MEDS: HEPARIN SODIUM,PORCINE/D5W 25,000 UNIT/250 ML RTUINJ IV PRN (14:45)
[2017-08-19] MEDS: VANCOMYCIN HCL 1,000 MG in DEXTROSE 5%-WATER 250 ML IV SCH (15:10)
--- NOTE | 2017-08-19 16:20 | PDOC CONSULTATION ---
Consultation Consult Date: 08/19/17 Attending physician:: SHERIN MENDOZA Consult reason:: Preop cardiovascular examination History of Present Illness Admission Date/PCP: 08/19/17 03:42 Patient complains of: Shortness of breath and left knee pain and swelling History of Present Illness: JOON JANG is a 57 year old male presented to the emergency room with pain and swelling of his left knee. He states the pain and swelling began Sunday he has had 2 other episodes of fairly similar complaints but states they had subsided after 3 or 4 days in the previous instances. He states in this occurrence he was forced by his family for further evaluation of his issues. In the emergency room patient underwent aspiration which was sent for culture sensitivity and cell count. Patient states his pain is worse with motion or attempted ambulation. He has noticed some fever and chills over the past 24 hours. Pain 9/10 with motion. Denies specific injury to his left knee. Of note patient recently sustained an acute CVA and is currently on chronic Coumadin therapy. Past Medical History Cardiac Medical History: Reports: Atrial Fibrillation, Congestive Heart Failure , Coronary Artery Disease, Hyperlipidema, Hypertension Pulmonary Medical History: Reports: Sleep Apnea Neurological Medical History: Reports: Ischemic CVA Endocrine Medical History: Reports: Diabetes Mellitus Type 2, Obesity Renal/ Medical History: Reports: Chronic Kidney Disease Musculoskeltal Medical History: Reports: Arthritis Psychiatric Medical History: Denies: Depression Past Surgical History Past Surgical History: Reports: Appendectomy Social History Information Source: Patient Smoking Status: Never Smoker Frequency of Alcohol Use: None Hx Recreational Drug Use: No Drugs: None Hx Prescription Drug Abuse: No - Advance Directive Resuscitation Status: Full Code Surrogate healthcare decision maker:: Patient spouse is the surrogate decision-maker Family History Family History: COPD, DM Parental Family History Reviewed: Yes Children Family History Reviewed: Yes Sibling(s) Family History Reviewed.: Yes - Negative for premature coronary artery disease or sudden cardiac in the family amongst first degree relatives. Medication/Allergy Home Medications: Amiodarone HCl [Cordarone 200 mg Tablet] 200 mg PO Q12 08/19/17 Carvedilol [Carvedilol] 25 mg PO Q12 08/19/17 Furosemide [Lasix] 40 mg PO DAILY 08/19/17 Lisinopril 20 mg PO BID 08/19/17 Potassium Citrate [Potassium Citrate ER] 20 meq PO DAILY 08/19/17 Pravastatin Sodium 20 mg PO QHS 08/19/17 Warfarin Sodium 3 mg PO MOWEFR@1000 PRN 08/19/17 Allergies/Adverse Reactions: No Known Allergies Allergy (Unverified 08/18/17 20:00) Review of Systems Review of Systems: Please see history of present illness and past medical history as wall. Constitutional: No fever or chills reported. Head : No recent chronic headaches, recent head injury. Eyes: No recent eye pain, diplopia, redness, discharge, acute visual changes. Ears: No recent chronic ear pain, acute hearing loss, ear discharge. Oral cavity: No recent ulcerations, bleeding, oral cavity discomfort. Neck: No recent acute neck pain reported. Hematologic: No recent easy bruising or bleeding or hematologic malignancy reported. Lymphatic: No recent lymphatic malignancy, chronic lymphadenopathy reported yet Cardiovascular system review: See history of present illness. Respiratory system review: No recent chronic cough, hemoptysis, blood clots in the lungs reported. Mild Shortness of breath on exertion Gastrointestinal system review: Negative for any recent acute or chronic abdominal pain, hematemesis, melena, recent change in bowel habits. Genitourinary system review: No recent acute or chronic hematuria, flank pain, UTI etc. reported. Skin system review: Negative for any recent abnormal bruising, no rash, no pruritus reported. Neurologic: Prior history of stroke. No seizure disorder. Psychologic: No history of major psychosis or major depression reported. Musculoskeletal: Minor aches and pains reported. Left knee acute swelling. Endocrine: No recent polyuria, polydipsia, recent heat or cold intolerance. Physical Exam Vital Signs: Temp Pulse Resp BP Pulse Ox 97.8 F 51 L 18 141/78 H 97 08/19/17 08:02 08/19/17 08:02 08/19/17 08:02 08/19/17 08:02 08/19/17 08:02 Intake & Output 08/18/17 08/19/17 08/20/17 06:59 06:59 06:59 Weight 124.9 kg Exam: GENERAL: well-nourished and in no acute distress. Alert and oriented x3 HEAD: Atraumatic, normocephalic. EYES: Pupils equal round and reactive to light, extraocular movements intact, sclera anicteric, conjunctiva are normal. ENT: TMs normal, nares patent, oropharynx clear without exudates. Moist mucous membranes. No oral ulcerations or bleeding gums noted NECK: supple without lymphadenopathy. Trachea is central. No cervical or axillary lymphadenopathy noted. Carotids are 2+, JVD WNL LUNGS: Respiration seems nonlabored, no significant accessory muscle action noted. Breath sounds clear to auscultation bilaterally and equal noted. No wheezes rales or rhonchi noted. No significant dullness noted on percussion. CHEST: Palpation of the chest wall shows no significant chest wall tenderness. No other significant abnormalities noted. HEART: [place] CASE COORDINATOR, No PSH, 1/6 TOD aortic area, 1/6 fernandez systolic murmur mitral area, no rubs, no gallops. ABDOMEN: Soft, no significant tenderness appreciated, normoactive bowel sounds. No guarding, no rebound. No rigidity noted . No masses appreciated. EXTREMITIES: Pedal pulses are 1-2+, no calf tenderness noted. No clubbing or cyanosis.trace to 1+ pedal edema noted NEUROLOGICAL: Focused neurological exam showed no significant neurologic deficit. Normal speech, no focal weakness appreciated. PSYCH: Normal mood, normal affect. Judgment and insight within normal limits. SKIN: No significant ecchymosis, rash, ulcerations or signs of pruritus noted. MUSCULOSKELETAL EXAM: No significant joint swelling noted. Left knee swelling and tenderness noted. Results Laboratory Results: 08/19/17 12:43 08/19/17 08/19/17 08/19/17 06:28 09:30 12:43 WBC 10.0 10.1 RBC 4.49 4.54 Hgb 14.0 14.3 Hct 41.0 41.9 MCV 91 92 MCH 31.2 31.6 MCHC 34.1 34.2 RDW 14.0 14.1 H Plt Count 121 L 128 L Seg Neutrophils % 68.9 69.2 Lymphocytes % 17.4 15.2 Monocytes % 10.2 12.0 Eosinophils % 2.5 3.1 Basophils % 1.0 0.5 Absolute Neutrophils 6.9 7.0 Absolute Lymphocytes 1.7 1.5 Absolute Monocytes 1.0 1.2 Absolute Eosinophils 0.3 0.3 Absolute Basophils 0.1 0.0 Urine Color YELLOW Urine Appearance CLEAR Urine pH 6.0 Ur Specific [place] 1.027 Urine Protein 30 H Urine Glucose (UA) NEGATIVE Urine Ketones NEGATIVE Urine Blood NEGATIVE Urine Nitrite NEGATIVE Ur Leukocyte Esterase NEGATIVE Urine WBC (Auto) 0 Urine RBC (Auto) 0 EKG Comments: Twelve-lead EKG shows sinus rhythm, right ventricular hypertrophy with some nonspecific ST-T wave changes. Impressions: Chest X-Ray 08/18/17 21:51 IMPRESSION: NO SIGNIFICANT RADIOGRAPHIC FINDING IN THE CHEST. Foot X-Ray 08/18/17 21:51 IMPRESSION: NEGATIVE STUDY OF THE RIGHT FOOT. NO EXPLANATION FOR PAIN. Knee X-Ray 08/18/17 21:51 IMPRESSION: DEGENERATIVE JOINT DISEASE. Assessment & Plan - Diagnosis (1) Preoperative cardiovascular examination Is this a current diagnosis for this admission?: Yes (2) Paroxysmal atrial fibrillation Is this a current diagnosis for this admission?: Yes (3) Obstructive sleep apnea Is this a current diagnosis for this admission?: Yes (4) Hypertension Qualifiers: Hypertension type: essential hypertension Qualified Code(s): I10 - Essential (primary) hypertension Is this a current diagnosis for this admission?: Yes (5) Diabetes Qualifiers: Diabetes mellitus type: type 2 Diabetes mellitus complication status: with unspecified complications Diabetes mellitus senior care insulin use: 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 status Qualified Code(s): E11.8 - Type 2 diabetes mellitus with unspecified complications Is this a current diagnosis for this admission?: Yes (6) Congestive heart failure (CHF) Qualifiers: Congestive heart failure type: unspecified congestive heart failure type Is this a current diagnosis for this admission?: Yes (7) CKD (chronic kidney disease), stage III Is this a current diagnosis for this admission?: Yes (8) CVA (cerebral vascular accident) Qualifiers: CVA mechanism: unspecified Qualified Code(s): I63.9 - Cerebral infarction, unspecified - Notes Notes: Preop cardiovascular examination: I am told that patient is just going to need arthroscopic surgery and aspiration of the joint. This is low risk surgery therefore cleared for the surgery. Patient would need heparin bridge in view of history of atrial fibrillation and recent stroke. This is being instituted. Paroxysmal atrial fibrillation: Patient currently maintaining sinus rhythm. Continue amiodarone therapy. Obstructive sleep apnea: Patient currently not on CPAP therapy. Have advised patient to follow-up with me for institution of CPAP therapy. Hypertension: Blood pressure goal should be 135/85 or less in this patient. Currently well controlled. Diabetes: Recommend good control of blood sugar. However should avoid any hypoglycemia. Patient being expertly managed by primary care Jamshid CHF: Currently compensated. BNP slightly high. Most likely related to diastolic dysfunction and right heart failure. Will order a 2D echocardiogram but this should not delay surgery. Cerebrovascular accident: Continue chronic Coumadin therapy, resume Coumadin as soon as feasible. Chronic kidney disease: Currently stable. Patient tells me that he is being followed by a accountant tax. - Time Time Spent: 30 to 50 Minutes - CODE STATUS was discussed, patient remains full code. Surrogate decision-maker patient spouse. Multiple medical problems were addressed. More than 50% of the time spent coordinating care, discussing management plans with involved caregivers. Management plans discussed with involved personnels. Medical decision making was of moderate to high complexity , patient's has multiple comorbidities. Medications reviewed and adjusted accordingly: Yes
[2017-08-19] MEDS ORDERED: (PENDING PHARMACY ID) (Lisinopril [Lisinopril] 20 MG) PO SCH (18:00)
[2017-08-19] MEDS: ATORVASTATIN CALCIUM 10 MG TABLET PO SCH (21:32)
[2017-08-19] MEDS: LISINOPRIL 10 MG TABLET PO SCH (21:32)
[2017-08-19] MEDS: CARVEDILOL 12.5 MG TABLET PO SCH (21:34)
[2017-08-19] MEDS: AMIODARONE HCL 200 MG TABLET PO SCH (21:34)
[2017-08-19] MEDS ORDERED: (PENDING PHARMACY ID) (Pravastatin Sodium [Pravastatin Sodium] 20 MG) PO SCH (22:00)
[2017-08-20] MEDS: VANCOMYCIN HCL 1,000 MG in DEXTROSE 5%-WATER 250 ML IV SCH ×4 (02:37→22:48)
[2017-08-20] MEDS: HEPARIN SODIUM,PORCINE/D5W 25,000 UNIT/250 ML RTUINJ IV PRN ×2 (05:29→19:58)
--- NOTE | 2017-08-20 07:14 | PDOC PROGRESS REPORT ---
Subjective Progress Note for:: 08/20/17 Subjective:: Patient complaining of excruciating pain in the left knee Physical Exam Vital Signs: Temp Pulse Resp BP Pulse Ox 36.7 C 68 17 132/89 H 99 08/20/17 00:00 08/20/17 00:00 08/20/17 00:00 08/20/17 00:00 08/20/17 00:00 Intake & Output 08/19/17 08/20/17 08/21/17 06:59 06:59 06:59 Intake Total 1450 Output Total 700 Balance 750 Weight 124.9 kg General appearance: PRESENT: mild distress Head exam: PRESENT: normocephalic Respiratory exam: PRESENT: unlabored Cardiovascular exam: PRESENT: RRR Pulses: PRESENT: +1 pedal pulses bilateral Vascular exam: PRESENT: normal capillary refill GI/Abdominal exam: PRESENT: soft Rectal exam: PRESENT: deferred Musculoskeletal exam: PRESENT: other - Left knee has a significant effusion and marked tenderness to palpation. Skin temperature is not necessarily any warmer than the contralateral extremity. There is no clear erythema but the patient has dark skin which may obscure some of this. Passive range of motion causes extreme pain. Distal neurovascular is intact. Results Laboratory Results: 08/19/17 12:43 08/19/17 08/19/17 09:30 12:43 WBC 10.1 RBC 4.54 Hgb 14.3 Hct 41.9 MCV 92 MCH 31.6 MCHC 34.2 RDW 14.1 H Plt Count 128 L Seg Neutrophils % 69.2 Lymphocytes % 15.2 Monocytes % 12.0 Eosinophils % 3.1 Basophils % 0.5 Absolute Neutrophils 7.0 Absolute Lymphocytes 1.5 Absolute Monocytes 1.2 Absolute Eosinophils 0.3 Absolute Basophils 0.0 Urine Color YELLOW Urine Appearance CLEAR Urine pH 6.0 Ur Specific [place] 1.027 Urine Protein 30 H Urine Glucose (UA) NEGATIVE Urine Ketones NEGATIVE Urine Blood NEGATIVE Urine Nitrite NEGATIVE Ur Leukocyte Esterase NEGATIVE Urine WBC (Auto) 0 Urine RBC (Auto) 0 Impressions: Chest X-Ray 08/18/17 21:51 IMPRESSION: NO SIGNIFICANT RADIOGRAPHIC FINDING IN THE CHEST. Foot X-Ray 08/18/17 21:51 IMPRESSION: NEGATIVE STUDY OF THE RIGHT FOOT. NO EXPLANATION FOR PAIN. Knee X-Ray 08/18/17 21:51 IMPRESSION: DEGENERATIVE JOINT DISEASE. Status: Imported from PACS Assessment & Plan - Diagnosis (1) Septic arthritis of knee, left Qualifiers: Septic arthritis organism: due to unspecified organism Qualified Code(s): M00.9 - Pyogenic arthritis, unspecified Is this a current diagnosis for this admission?: Yes Plan: 57-year-old black male with intermittent problems in the left knee over the course of several months that initially had resolved spontaneously but has not resolved at this point. A tap of the knee has been performed and demonstrates a leukocytosis. Whether or not this represents an inflammatory versus an infectious process is unclear. I think the patient will be best served with a arthroscopic washout of his knee under local MAC anesthesia. - Time Time Spent with patient: 15-24 minutes Anticipated discharge: Home with Homehealth Within: Other
[2017-08-20 07:37] LABS: ABSOLUTE BASOPHILS # (AUTO) 0.1 10^3/uL (0.0-0.2); ABSOLUTE EOSINOPHILS # (AUTO) 0.4 10^3/uL (0.0-0.6); ABSOLUTE LYMPHOCYTES (AUTO) 1.9 10^3/uL (0.5-4.7); ABSOLUTE MONOCYTES (AUTO) 1.1 10^3/uL (0.1-1.4); ABSOLUTE NEUT (AUTO) 5.5 10^3/uL (1.7-8.2); BASOPHILS % (AUTO) 0.8 % (0-2); EOSINOPHILS % (AUTO) 4.3 % (0-6); HEMATOCRIT 39.5 % (37.9-51.0); HEMOGLOBIN 13.3 g/dL (13.5-17.0); HGB HCT DIFFERENCE 0.4; LYMPHOCYTES % (AUTO) 20.9 % (13-45); MEAN CORPUSCULAR HEMOGLOBIN 31.1 pg (27.0-33.4); MEAN CORPUSCULAR HGB CONC 33.8 g/dL (32.0-36.0); MEAN CORPUSCULAR VOLUME 92 fl (80-97); MONOCYTES % (AUTO) 12.7 % (3-13); RED BLOOD COUNT 4.29 10^6/uL (4.35-5.55); RED CELL DISTRIBUTION WIDTH 13.9 % (11.5-14.0); SEGMENTED NEUTROPHILS % (AUTO) 61.3 % (42-78)
[2017-08-20] MEDS ORDERED: RINGERS SOLUTION,LACTATED 1,000 ML IV PRN (07:45)
[2017-08-20 07:46] LABS: PROTHROMBIN TIME 16.4 SEC (11.4-15.4)
[2017-08-20 07:48] LABS: PARTIAL THROMBOPLASTIN TIME 81.3 SEC (23.5-35.8)
[2017-08-20 08:08] LABS: ANION GAP 13 (5-19); BLOOD UREA NITROGEN 23 mg/dL (7-20); CALCIUM 8.6 mg/dL (8.4-10.2); CARBON DIOXIDE 21 mmol/L (22-30); CHLORIDE 108 mmol/L (98-107); CREATININE RESULT 1.54 mg/dL (0.52-1.25); GLUCOSE 99 mg/dL (75-110); POTASSIUM 3.6 mmol/L (3.6-5.0); SODIUM 142.1 mmol/L (137-145)
[2017-08-20] MEDS ORDERED: ACETAMINOPHEN 325 MG TABLET PO PRN (08:30)
[2017-08-20] MEDS ORDERED: ONDANSETRON HCL INJ/PF 4 MG/2 ML SDV IV PRN (08:30)
--- NOTE | 2017-08-20 09:12 | EKG REPORT ---
SEVERITY:- ABNORMAL ECG - SINUS RHYTHM RIGHT BUNDLE BRANCH BLOCK : Confirmed by: Marisa Perez 20-Aug-2017 09:10:57
--- NOTE | 2017-08-20 09:12 | EKG REPORT ---
SEVERITY:- ABNORMAL ECG - SINUS RHYTHM RIGHT BUNDLE BRANCH BLOCK LVH WITH IVCD AND SECONDARY REPOL ABNRM : Confirmed by: Marisa Perez 20-Aug-2017 09:10:48
[2017-08-20] MEDS: FUROSEMIDE 40 MG TABLET PO SCH (09:41)
[2017-08-20] MEDS: AMIODARONE HCL 200 MG TABLET PO SCH ×2 (09:41→21:27)
[2017-08-20] MEDS: CARVEDILOL 12.5 MG TABLET PO SCH ×2 (09:41→21:26)
[2017-08-20] MEDS: LISINOPRIL 10 MG TABLET PO SCH ×2 (09:41→21:26)
[2017-08-20] MEDS: DOCUSATE SODIUM 100 MG CAPSULE PO SCH ×2 (09:42→17:09)
[2017-08-20] MEDS: CEFTRIAXONE 2 GM/D5W RTU 2 GM/50 ML RTUPB IV SCH (09:50)
--- NOTE | 2017-08-20 09:56 | PDOC PROGRESS REPORT ---
Subjective Progress Note for:: 08/20/17 Subjective:: This is a follow-up visit for left septic knee. Patient initially presented with swollen left knee that was tapped down in the ED. He is being followed by orthopedic surgery who believes he needs a washout and arthroscopy. Patient has a history of atrial fibrillation and is usually on Coumadin but was subtherapeutic when he came in. Within the last 60 days he has had a new stroke that was diagnosed at an outside hospital. It is unclear whether or not his stroke was a result of atrial fibrillation. Therefore, the patient has been kept on heparin drip with anticipation for bridging back to Coumadin prior to discharge. Currently at the bedside the patient has no complaints and he is waiting for his arthroscopy which is scheduled for 2 PM. He remains on antibiotic therapy. Physical Exam Vital Signs: Temp Pulse Resp BP Pulse Ox 98.0 F 68 17 132/89 H 99 08/20/17 00:00 08/20/17 00:00 08/20/17 00:00 08/20/17 00:00 08/20/17 00:00 Intake & Output 08/19/17 08/20/17 08/21/17 06:59 06:59 06:59 Intake Total 1450 Output Total 700 Balance 750 Weight 124.9 kg GENERAL: This is a well-developed well-nourished obese -[place] male resting in bed currently in no acute distress. HEART: Regular rate and rhythm. No murmurs, rubs or gallops. LUNGS: Clear to auscultation bilaterally with equal rise and fall of the chest. ABDOMEN: Soft, nontender, nondistended with normoactive bowel sounds EXTREMETIES: No clubbing, cyanosis. The left knee looks more swollen today as compared to the right. There is minimal warmth on palpation. I do not detect any streaking or erythema. 2+ peripheral pulses bilaterally. NEURO: Awake, alert and oriented 3. Cranial nerves II through XII are grossly intact. Results Laboratory Results: 08/20/17 06:30 08/20/17 06:30 08/19/17 08/19/17 08/20/17 09:30 12:43 06:30 WBC 10.1 9.0 RBC 4.54 4.29 L Hgb 14.3 13.3 L Hct 41.9 39.5 MCV 92 92 MCH 31.6 31.1 MCHC 34.2 33.8 RDW 14.1 H 13.9 Plt Count 128 L 122 L Seg Neutrophils % 69.2 61.3 Lymphocytes % 15.2 20.9 Monocytes % 12.0 12.7 Eosinophils % 3.1 4.3 Basophils % 0.5 0.8 Absolute Neutrophils 7.0 5.5 Absolute Lymphocytes 1.5 1.9 Absolute Monocytes 1.2 1.1 Absolute Eosinophils 0.3 0.4 Absolute Basophils 0.0 0.1 Sodium Potassium Chloride Carbon Dioxide Anion Gap BUN Creatinine Est GFR ( Amer) Est GFR (Non-Af Amer) Glucose Calcium Urine Color YELLOW Urine Appearance CLEAR Urine pH 6.0 Ur Specific [place] 1.027 Urine Protein 30 H Urine Glucose (UA) NEGATIVE Urine Ketones NEGATIVE Urine Blood NEGATIVE Urine Nitrite NEGATIVE Ur Leukocyte Esterase NEGATIVE Urine WBC (Auto) 0 Urine RBC (Auto) 0 08/20/17 06:30 WBC RBC Hgb Hct MCV MCH MCHC RDW Plt Count Seg Neutrophils % Lymphocytes % Monocytes % Eosinophils % Basophils % Absolute Neutrophils Absolute Lymphocytes Absolute Monocytes Absolute Eosinophils Absolute Basophils Sodium 142.1 Potassium 3.6 Chloride 108 H Carbon Dioxide 21 L Anion Gap 13 BUN 23 H Creatinine 1.54 H Est GFR ( Amer) 57 L Est GFR (Non-Af Amer) 47 L Glucose 99 Calcium 8.6 Urine Color Urine Appearance Urine pH Ur Specific [place] Urine Protein Urine Glucose (UA) Urine Ketones Urine Blood Urine Nitrite Ur Leukocyte Esterase Urine WBC (Auto) Urine RBC (Auto) Impressions: Chest X-Ray 08/18/17 21:51 IMPRESSION: NO SIGNIFICANT RADIOGRAPHIC FINDING IN THE CHEST. Foot X-Ray 08/18/17 21:51 IMPRESSION: NEGATIVE STUDY OF THE RIGHT FOOT. NO EXPLANATION FOR PAIN. Knee X-Ray 08/18/17 21:51 IMPRESSION: DEGENERATIVE JOINT DISEASE. Assessment & Plan - Diagnosis (1) Septic arthritis of knee, left Qualifiers: Septic arthritis organism: due to unspecified organism Qualified Code(s): M00.9 - Pyogenic arthritis, unspecified Is this a current diagnosis for this admission?: Yes Plan: Plan for washout and arthroscopy today. Tap is already been done once in the ED and cultures are pending. (2) CVA (cerebral vascular accident) Qualifiers: CVA mechanism: unspecified Qualified Code(s): I63.9 - Cerebral infarction, unspecified Plan: Is unknown what type of stroke the patient had. Apparently this happened and workup was done in [place] month ago. Is unclear if this is related to his A. fib. See management as per A. fib (3) Atrial fibrillation Qualifiers: Atrial fibrillation type: chronic Qualified Code(s): I48.2 - Chronic atrial fibrillation Is this a current diagnosis for this admission?: Yes Plan: The patient is currently on a heparin drip. This is held this morning in anticipation of a 2 PM arthroscopy. Resume afterwards. Begin bridging to Coumadin as appropriate. (4) CKD (chronic kidney disease), stage III Is this a current diagnosis for this admission?: Yes Plan: Stable. Continue amiodarone. Resume Coumadin as appropriate. (5) Congestive heart failure Qualifiers: Congestive heart failure type: unspecified congestive heart failure type Congestive heart failure chronicity: chronic Qualified Code(s): I50.9 - Heart failure, unspecified Is this a current diagnosis for this admission?: Yes Plan: Continue Lasix, lisinopril, carvedilol (6) Diabetes mellitus Qualifiers: Diabetes mellitus type: type 2 Diabetes mellitus complication status: with kidney complications Diabetes mellitus complication detail: with chronic kidney disease Diabetes mellitus residential insulin use: without bed bug exterminator use Chronic kidney disease stage: stage 3 (moderate) Qualified Code(s): E11.22 - Type 2 diabetes mellitus with diabetic chronic kidney disease; N18.3 - Chronic kidney disease, stage 3 (moderate); N18.3 - Chronic kidney disease, stage 3 (moderate) Is this a current diagnosis for this admission?: Yes Plan: Continue current regimen. N.p.o. after midnight. (7) Hyperlipidemia associated with type 2 diabetes mellitus Is this a current diagnosis for this admission?: Yes Plan: Continue statin. (8) Hypertension Qualifiers: Hypertension type: essential hypertension Qualified Code(s): I10 - Essential (primary) hypertension Is this a current diagnosis for this admission?: Yes Plan: Continue home medications. (9) Morbid obesity with BMI of 40.0-44.9, adult Is this a current diagnosis for this admission?: Yes Plan: Weight loss through dietary changes and exercise as tolerated. (10) Obstructive sleep apnea Is this a current diagnosis for this admission?: Yes - Time Time Spent with patient: 15-24 minutes Anticipated discharge: Home Within: within 72 hours
[2017-08-20] MEDS ORDERED: POTASSIUM CITRATE 20 MEQ PO SCH (10:00)
[2017-08-20] MEDS ORDERED: LIDOCAINE 1%/EPINEPHRINE INJ 20 ML VIAL ONE (11:11)
[2017-08-20] MEDS ORDERED: BUPIVACAINE HCL 0.5 % INJ/PF 30 ML SDV ONE (11:11)
[2017-08-20] MEDS ORDERED: PROPOFOL INJ 200 MG/20 ML VIAL IV ONE (11:31)
[2017-08-20] MEDS ORDERED: MIDAZOLAM 2 MG/2 ML INJ ONE (11:31)
[2017-08-20] MEDS ORDERED: FENTANYL CITRATE INJ/PF 100 MCG/2 ML AMPUL ONE (11:31)
[2017-08-20] MEDS ORDERED: MORPHINE SULFATE 10 MG/ML INJ ONE (11:32)
[2017-08-20] MEDS ORDERED: BACITRACIN INJ 50,000 UNIT VIAL ONE (11:36)
[2017-08-20] MEDS ORDERED: OXYCODONE-ACETAMINOPHEN 5-325 MG TABLET PO PRN ×2 (12:04)
[2017-08-20] MEDS ORDERED: MORPHINE SULFATE 10 MG/ML INJ IV PRN (12:04)
[2017-08-20] MEDS ORDERED: MEPERIDINE HCL/PF INJ 25 MG/1 ML DISP.SYRIN IV PRN (12:04)
[2017-08-20] MEDS ORDERED: FENTANYL CITRATE INJ/PF 100 MCG/2 ML AMPUL IV PRN ×3 (12:04)
[2017-08-20] MEDS ORDERED: DIPHENHYDRAMINE HCL 50 MG/ML VIAL IV PRN (12:04)
[2017-08-20] MEDS ORDERED: PROMETHAZINE HCL INJ 25 MG/1 ML VIAL IV PRN ×2 (12:04)
--- NOTE | 2017-08-20 12:15 | Operative Report ---
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 A an 18-gauge needle was advanced through medial infrapatellar portal and used to aspirate 30 cc of cloudy turbid yellow fluid. This is sent for laboratory evaluation. Subsequent knee is insufflated with a combination of Marcaine with epinephrine. Medial lateral infrapatellar portals are created for the introduction of the arthroscope and debridements mutation. Joint is examined in systematic fashion finding diffuse deposition disease. Mechanical claude next used to perform an extensive synovectomy. 3 L of normal saline were then irrigated through the wound. Instrumentation was removed. Portals closed with interrupted nylon. A sterile compressive dressing was applied. The patient's return to the PACU in satisfactory condition.
[2017-08-20] MEDS ORDERED: IBUPROFEN INJ 800 MG/8 ML VIAL IV ONE (12:36)
[2017-08-20 13:24] LABS: FLUID APPEARANCE CLOUDY; FLUID RBC SIDE 1 127; FLUID RBC SIDE 2 119; FLUID TYPE SYNOVIAL; STAIN REACTIVITY CHECK ACCEPTABLE
[2017-08-20 13:25] LABS: FLUID RBC DILUENT USED SALINE; FLUID RBC DILUTION FACTOR 10; TOTAL RBC SQUARES COUNTED FLD 225
[2017-08-20] MEDS ORDERED: INDOMETHACIN 25 MG CAPSULE PO ONE (14:00)
[2017-08-20] MEDS ORDERED: IBUPROFEN 800 MG in NORMAL SALINE 250 ML IV SCH (18:00)
[2017-08-20 19:38] LABS: HEMOGLOBIN 13.7 g/dL (13.5-17.0); HGB HCT DIFFERENCE 1.1; MEAN CORPUSCULAR HEMOGLOBIN 31.4 pg (27.0-33.4); MEAN CORPUSCULAR HGB CONC 34.3 g/dL (32.0-36.0); MEAN CORPUSCULAR VOLUME 92 fl (80-97); RED BLOOD COUNT 4.36 10^6/uL (4.35-5.55); WHITE BLOOD COUNT 9.9 10^3/uL (4.0-10.5)
[2017-08-20 19:51] LABS: PROTHROMBIN TIME 15.4 SEC (11.4-15.4)
[2017-08-20 19:52] LABS: PARTIAL THROMBOPLASTIN TIME 34.9 SEC (23.5-35.8)
[2017-08-20] MEDS: ATORVASTATIN CALCIUM 10 MG TABLET PO SCH (21:27)
[2017-08-20] MEDS: OXYCODONE-ACETAMINOPHEN 5-325 MG TABLET PO PRN (22:45)
[2017-08-21] MEDS: IBUPROFEN 800 MG in NORMAL SALINE 250 ML IV SCH ×4 (00:03→21:49)
[2017-08-21] MEDS: VANCOMYCIN HCL 1,000 MG in DEXTROSE 5%-WATER 250 ML IV SCH ×4 (05:54→23:17)
[2017-08-21 06:13] LABS: APPEARANCE,URINE SLIGHTLY-CLOUDY; BILIRUBIN,URINE NEGATIVE (NEGATIVE); GLUCOSE, URINE NEGATIVE (NEGATIVE); KETONES,URINE NEGATIVE (NEGATIVE); LEUKOCYTE ESTERASE,URINE NEGATIVE (NEGATIVE); NITRITE,URINE NEGATIVE (NEGATIVE); PROTEIN,URINE NEGATIVE (NEGATIVE); URINE SPECIFIC GRAVITY 1.025; UROBILINOGEN,URINE NEGATIVE mg/dL (<2.0)
[2017-08-21 06:36] LABS: ABSOLUTE EOSINOPHILS # (AUTO) 0.4 10^3/uL (0.0-0.6); ABSOLUTE LYMPHOCYTES (AUTO) 1.5 10^3/uL (0.5-4.7); ABSOLUTE MONOCYTES (AUTO) 1.1 10^3/uL (0.1-1.4); ABSOLUTE NEUT (AUTO) 6.2 10^3/uL (1.7-8.2); BASOPHILS % (AUTO) 0.5 % (0-2); EOSINOPHILS % (AUTO) 4.1 % (0-6); HEMATOCRIT 38.7 % (37.9-51.0); HEMOGLOBIN 13.2 g/dL (13.5-17.0); HGB HCT DIFFERENCE 0.9; LYMPHOCYTES % (AUTO) 16.3 % (13-45); MEAN CORPUSCULAR HEMOGLOBIN 31.3 pg (27.0-33.4); MEAN CORPUSCULAR HGB CONC 34.2 g/dL (32.0-36.0); MEAN CORPUSCULAR VOLUME 92 fl (80-97); MONOCYTES % (AUTO) 11.8 % (3-13); RED BLOOD COUNT 4.23 10^6/uL (4.35-5.55); RED CELL DISTRIBUTION WIDTH 13.9 % (11.5-14.0); SEGMENTED NEUTROPHILS % (AUTO) 67.3 % (42-78); WHITE BLOOD COUNT 9.3 10^3/uL (4.0-10.5)
[2017-08-21 06:38] LABS: PROTHROMBIN TIME 15.1 SEC (11.4-15.4)
--- NOTE | 2017-08-21 06:44 | PDOC PROGRESS REPORT ---
Subjective Progress Note for:: 08/21/17 Subjective:: Patient with less discomfort than preop Physical Exam Vital Signs: Temp Pulse Resp BP Pulse Ox 37.1 C 62 18 118/72 97 08/21/17 00:24 08/21/17 00:24 08/21/17 00:24 08/21/17 00:24 08/21/17 00:24 Intake & Output 08/19/17 08/20/17 08/21/17 06:59 06:59 06:59 Intake Total 1450 6040 Output Total 700 4206 Balance 750 1834 Weight 124.9 kg 125.6 kg General appearance: PRESENT: no acute distress Head exam: PRESENT: normocephalic Respiratory exam: PRESENT: unlabored Pulses: PRESENT: +1 pedal pulses bilateral Vascular exam: PRESENT: normal capillary refill GI/Abdominal exam: PRESENT: soft Rectal exam: PRESENT: deferred Extremities exam: PRESENT: other - Left lower extremity dressing clean dry and intact Neurological exam: PRESENT: alert, awake, oriented to person, oriented to place , oriented to time, oriented to situation. ABSENT: motor sensory deficit Psychiatric exam: PRESENT: appropriate affect, normal mood. ABSENT: homicidal ideation, suicidal ideation Skin exam: PRESENT: dry, intact, warm. ABSENT: cyanosis, rash Results Laboratory Results: 08/20/17 08/20/17 08/20/17 06:30 06:30 11:50 WBC 9.0 RBC 4.29 L Hgb 13.3 L Hct 39.5 MCV 92 MCH 31.1 MCHC 33.8 RDW 13.9 Plt Count 122 L Seg Neutrophils % 61.3 Lymphocytes % 20.9 Monocytes % 12.7 Eosinophils % 4.3 Basophils % 0.8 Absolute Neutrophils 5.5 Absolute Lymphocytes 1.9 Absolute Monocytes 1.1 Absolute Eosinophils 0.4 Absolute Basophils 0.1 Sodium 142.1 Potassium 3.6 Chloride 108 H Carbon Dioxide 21 L Anion Gap 13 BUN 23 H Creatinine 1.54 H Est GFR ( Amer) 57 L Est GFR (Non-Af Amer) 47 L Glucose 99 Calcium 8.6 Urine Color Urine Appearance Urine pH Ur Specific [place] Urine Protein Urine Glucose (UA) Urine Ketones Urine Blood Urine Nitrite Ur Leukocyte Esterase Urine WBC (Auto) Urine RBC (Auto) Fluid Type SYNOVIAL Fluid Source KNEE Fluid Color YELLOW Fluid Appearance CLOUDY Fluid Viscosity MODERATELY VISCOUS Fluid WBC 74025 Fluid RBC 1366 08/20/17 08/20/17 08/21/17 11:50 19:25 05:40 WBC 9.9 RBC 4.36 Hgb 13.7 Hct 40.0 MCV 92 MCH 31.4 MCHC 34.3 RDW 14.0 Plt Count 118 L Seg Neutrophils % Lymphocytes % Monocytes % Eosinophils % Basophils % Absolute Neutrophils Absolute Lymphocytes Absolute Monocytes Absolute Eosinophils Absolute Basophils Sodium Potassium Chloride Carbon Dioxide Anion Gap BUN Creatinine Est GFR ( Amer) Est GFR (Non-Af Amer) Glucose Calcium Urine Color YELLOW Urine Appearance SLIGHTLY-CLOUDY Urine pH 6.0 Ur Specific [place] 1.025 Urine Protein NEGATIVE Urine Glucose (UA) NEGATIVE Urine Ketones NEGATIVE Urine Blood NEGATIVE Urine Nitrite NEGATIVE Ur Leukocyte Esterase NEGATIVE Urine WBC (Auto) 1 Urine RBC (Auto) 0 Fluid Type SYNOVIAL Fluid Source LEFT KNEE Fluid Color Fluid Appearance Fluid Viscosity Fluid WBC Fluid RBC Impressions: Chest X-Ray 08/18/17 21:51 IMPRESSION: NO SIGNIFICANT RADIOGRAPHIC FINDING IN THE CHEST. Foot X-Ray 08/18/17 21:51 IMPRESSION: NEGATIVE STUDY OF THE RIGHT FOOT. NO EXPLANATION FOR PAIN. Knee X-Ray 08/18/17 21:51 IMPRESSION: DEGENERATIVE JOINT DISEASE. Status: Imported from PACS Assessment & Plan - Diagnosis (1) Septic arthritis of knee, left Qualifiers: Septic arthritis organism: due to unspecified organism Qualified Code(s): M00.9 - Pyogenic arthritis, unspecified Is this a current diagnosis for this admission?: Yes Plan: Intraoperative specimen from 08/20 demonstrates the presence monosodium urate crystals indicative of gouty arthropathy. Patient can be mobilized with physical therapy and weightbearing as tolerated basis. - Time Time Spent with patient: 15-24 minutes Anticipated discharge: Home with Homehealth Within: within 24 hours
[2017-08-21 07:14] LABS: ANION GAP 13 (5-19); BLOOD UREA NITROGEN 23 mg/dL (7-20); CALCIUM 8.6 mg/dL (8.4-10.2); CARBON DIOXIDE 23 mmol/L (22-30); CHLORIDE 108 mmol/L (98-107); CREATININE RESULT 1.79 mg/dL (0.52-1.25); GLUCOSE 111 mg/dL (75-110); MAGNESIUM 2.2 mg/dL (1.6-2.3); SODIUM 143.5 mmol/L (137-145)
[2017-08-21] MEDS ORDERED: (PENDING PHARMACY ID) (Potassium Chloride [K-Tab Er] 20 MEQ) PO SCH (08:00)
[2017-08-21] MEDS ORDERED: INDOMETHACIN 25 MG CAPSULE PO SCH (10:00)
[2017-08-21] MEDS: CEFTRIAXONE 2 GM/D5W RTU 2 GM/50 ML RTUPB IV SCH (10:10)
[2017-08-21] MEDS: OXYCODONE-ACETAMINOPHEN 5-325 MG TABLET PO PRN ×2 (10:11→23:29)
[2017-08-21] MEDS: POTASSIUM CHLORIDE 10 MEQ TABLET.SA PO SCH (10:11)
[2017-08-21] MEDS: DOCUSATE SODIUM 100 MG CAPSULE PO SCH ×2 (10:12→17:52)
[2017-08-21] MEDS: PREDNISONE 20 MG TABLET PO SCH (10:12)
[2017-08-21] MEDS: LISINOPRIL 10 MG TABLET PO SCH ×2 (10:13→21:47)
[2017-08-21] MEDS: CARVEDILOL 12.5 MG TABLET PO SCH ×2 (10:14→21:47)
[2017-08-21] MEDS: AMIODARONE HCL 200 MG TABLET PO SCH ×2 (10:14→21:46)
[2017-08-21] MEDS: FUROSEMIDE 40 MG TABLET PO SCH (10:15)
--- NOTE | 2017-08-21 12:23 | PDOC PROGRESS REPORT ---
Subjective Progress Note for:: 08/21/17 Subjective:: Patient complains of swelling in the right ankle Physical Exam Vital Signs: Temp Pulse Resp BP Pulse Ox 97.5 F 57 L 20 119/73 94 08/21/17 08:01 08/21/17 08:01 08/21/17 08:01 08/21/17 08:01 08/21/17 08:01 Intake & Output 08/20/17 08/21/17 08/22/17 06:59 06:59 06:59 Intake Total 1450 6040 Output Total 700 4206 Balance 750 1834 Weight 125.6 kg General appearance: PRESENT: no acute distress Eye exam: PRESENT: conjunctiva pink. ABSENT: scleral icterus Mouth exam: PRESENT: moist, tongue midline Neck exam: ABSENT: JVD Respiratory exam: PRESENT: clear to auscultation henrry. ABSENT: rales, rhonchi, wheezes Cardiovascular exam: PRESENT: RRR. ABSENT: diastolic murmur, rubs, systolic murmur GI/Abdominal exam: PRESENT: normal bowel sounds, soft. ABSENT: distended, guarding, mass, organolmegaly, rebound, tenderness Extremities exam: PRESENT: other - Right ankle shows a moderate-sized effusion. Left knee is in a dressing.. ABSENT: calf tenderness, clubbing, pedal edema Neurological exam: PRESENT: alert, awake, oriented to person, oriented to place , oriented to time, oriented to situation, CN II-XII grossly intact. ABSENT: motor sensory deficit Psychiatric exam: PRESENT: appropriate affect Skin exam: PRESENT: dry, intact, warm. ABSENT: cyanosis, rash Results Laboratory Results: 08/21/17 06:20 08/21/17 06:20 08/20/17 08/20/17 08/20/17 11:50 11:50 19:25 WBC 9.9 RBC 4.36 Hgb 13.7 Hct 40.0 MCV 92 MCH 31.4 MCHC 34.3 RDW 14.0 Plt Count 118 L Seg Neutrophils % Lymphocytes % Monocytes % Eosinophils % Basophils % Absolute Neutrophils Absolute Lymphocytes Absolute Monocytes Absolute Eosinophils Absolute Basophils Sodium Potassium Chloride Carbon Dioxide Anion Gap BUN Creatinine Est GFR ( Amer) Est GFR (Non-Af Amer) Glucose Calcium Magnesium Urine Color Urine Appearance Urine pH Ur Specific [place] Urine Protein Urine Glucose (UA) Urine Ketones Urine Blood Urine Nitrite Ur Leukocyte Esterase Urine WBC (Auto) Urine RBC (Auto) Fluid Type SYNOVIAL SYNOVIAL Fluid Source KNEE LEFT KNEE Fluid Color YELLOW Fluid Appearance CLOUDY Fluid Viscosity MODERATELY VISCOUS Fluid WBC 85223 Fluid RBC 1366 08/21/17 08/21/17 08/21/17 05:40 06:20 06:20 WBC 9.3 RBC 4.23 L Hgb 13.2 L Hct 38.7 MCV 92 MCH 31.3 MCHC 34.2 RDW 13.9 Plt Count 126 L Seg Neutrophils % 67.3 Lymphocytes % 16.3 Monocytes % 11.8 Eosinophils % 4.1 Basophils % 0.5 Absolute Neutrophils 6.2 Absolute Lymphocytes 1.5 Absolute Monocytes 1.1 Absolute Eosinophils 0.4 Absolute Basophils 0.0 Sodium 143.5 Potassium 4.0 Chloride 108 H Carbon Dioxide 23 Anion Gap 13 BUN 23 H Creatinine 1.79 H Est GFR ( Amer) 48 L Est GFR (Non-Af Amer) 39 L Glucose 111 H Calcium 8.6 Magnesium 2.2 Urine Color YELLOW Urine Appearance SLIGHTLY-CLOUDY Urine pH 6.0 Ur Specific [place] 1.025 Urine Protein NEGATIVE Urine Glucose (UA) NEGATIVE Urine Ketones NEGATIVE Urine Blood NEGATIVE Urine Nitrite NEGATIVE Ur Leukocyte Esterase NEGATIVE Urine WBC (Auto) 1 Urine RBC (Auto) 0 Fluid Type Fluid Source Fluid Color Fluid Appearance Fluid Viscosity Fluid WBC Fluid RBC 08/21/17 06:20 Troponin I 0.021 Impressions: Chest X-Ray 08/18/17 21:51 IMPRESSION: NO SIGNIFICANT RADIOGRAPHIC FINDING IN THE CHEST. Foot X-Ray 08/18/17 21:51 IMPRESSION: NEGATIVE STUDY OF THE RIGHT FOOT. NO EXPLANATION FOR PAIN. Knee X-Ray 08/18/17 21:51 IMPRESSION: DEGENERATIVE JOINT DISEASE. Assessment & Plan - Diagnosis (1) Septic arthritis of knee, left Qualifiers: Septic arthritis organism: due to unspecified organism Qualified Code(s): M00.9 - Pyogenic arthritis, unspecified Is this a current diagnosis for this admission?: Yes Plan: Patient most likely has gout as the cause for swelling. Cultures so far showed no growth. (2) Gout Is this a current diagnosis for this admission?: Yes Plan: Will start on prednisone. (3) Atrial fibrillation Qualifiers: Atrial fibrillation type: chronic Qualified Code(s): I48.2 - Chronic atrial fibrillation Is this a current diagnosis for this admission?: Yes Plan: Patient is rate control. (4) CKD (chronic kidney disease), stage III Is this a current diagnosis for this admission?: Yes Plan: Patient is euvolemic. (5) Congestive heart failure (CHF) Qualifiers: Congestive heart failure type: unspecified congestive heart failure type Is this a current diagnosis for this admission?: Yes Plan: Patient is euvolemic. (6) Diabetes mellitus Qualifiers: Diabetes mellitus type: type 2 Diabetes mellitus complication status: with kidney complications Diabetes mellitus complication detail: with chronic kidney disease Diabetes mellitus shelter insulin use: without shelter use Chronic kidney disease stage: stage 3 (moderate) Qualified Code(s): E11.22 - Type 2 diabetes mellitus with diabetic chronic kidney disease; N18.3 - Chronic kidney disease, stage 3 (moderate); N18.3 - Chronic kidney disease, stage 3 (moderate) Is this a current diagnosis for this admission?: Yes (7) Hyperlipidemia associated with type 2 diabetes mellitus Is this a current diagnosis for this admission?: Yes (8) Hypertension Qualifiers: Hypertension type: essential hypertension Qualified Code(s): I10 - Essential (primary) hypertension Is this a current diagnosis for this admission?: Yes (9) Morbid obesity with BMI of 40.0-44.9, adult Is this a current diagnosis for this admission?: Yes (10) Obstructive sleep apnea Is this a current diagnosis for this admission?: Yes - Time Time Spent with patient: 25-34 minutes - Inpatient Certification Medical Necessity: Need Close Monitoring Due to Risk of Patient Decompensation - Plan Summary Plan Summary: If cultures remain negative we can probably stop the antibiotics.
[2017-08-21] MEDS: HEPARIN SODIUM,PORCINE/D5W 25,000 UNIT/250 ML RTUINJ IV PRN (17:52)
--- NOTE | 2017-08-21 21:09 | EKG REPORT ---
SEVERITY:- ABNORMAL ECG - SINUS RHYTHM RIGHT BUNDLE BRANCH BLOCK LVH WITH IVCD AND SECONDARY REPOL ABNRM : Confirmed by: July Medina MD 21-Aug-2017 21:09:15
[2017-08-21] MEDS: ATORVASTATIN CALCIUM 10 MG TABLET PO SCH (21:47)
[2017-08-22] MEDS: VANCOMYCIN HCL 1,000 MG in DEXTROSE 5%-WATER 250 ML IV SCH (05:11)
[2017-08-22 05:12] LABS: HEMATOCRIT 38.9 % (37.9-51.0); HEMOGLOBIN 13.4 g/dL (13.5-17.0); HGB HCT DIFFERENCE 1.3; MEAN CORPUSCULAR HEMOGLOBIN 31.5 pg (27.0-33.4); MEAN CORPUSCULAR HGB CONC 34.5 g/dL (32.0-36.0); MEAN CORPUSCULAR VOLUME 91 fl (80-97); RED BLOOD COUNT 4.26 10^6/uL (4.35-5.55); RED CELL DISTRIBUTION WIDTH 13.9 % (11.5-14.0); WHITE BLOOD COUNT 15.5 10^3/uL (4.0-10.5)
[2017-08-22 05:14] LABS: PROTHROMBIN TIME 14.1 SEC (11.4-15.4)
[2017-08-22 05:16] LABS: PARTIAL THROMBOPLASTIN TIME 92.4 SEC (23.5-35.8)
[2017-08-22 05:26] LABS: ANION GAP 13 (5-19); BLOOD UREA NITROGEN 26 mg/dL (7-20); CARBON DIOXIDE 23 mmol/L (22-30); CHLORIDE 109 mmol/L (98-107); CREATININE RESULT 1.74 mg/dL (0.52-1.25); GLUCOSE 97 mg/dL (75-110); POTASSIUM 3.9 mmol/L (3.6-5.0); SODIUM 145.1 mmol/L (137-145)
[2017-08-22] MEDS: IBUPROFEN 800 MG in NORMAL SALINE 250 ML IV SCH (05:43)
[2017-08-22] MEDS: FUROSEMIDE 40 MG TABLET PO SCH (09:24)
[2017-08-22] MEDS: CARVEDILOL 12.5 MG TABLET PO SCH (09:25)
[2017-08-22] MEDS: DOCUSATE SODIUM 100 MG CAPSULE PO SCH (09:25)
[2017-08-22] MEDS: POTASSIUM CHLORIDE 10 MEQ TABLET.SA PO SCH (09:25)
[2017-08-22] MEDS: AMIODARONE HCL 200 MG TABLET PO SCH (09:26)
[2017-08-22] MEDS: PREDNISONE 20 MG TABLET PO SCH (09:26)
[2017-08-22] MEDS: LISINOPRIL 10 MG TABLET PO SCH (09:27)
[2017-08-22] MEDS: CEFTRIAXONE 2 GM/D5W RTU 2 GM/50 ML RTUPB IV SCH (09:27)
[2017-08-22] MEDS ORDERED: INFLUENZA ADLT QUAD (36MOS+) 2017-18 VAC 0.5 ML SYR IM PRN (11:03)
[2017-08-22 11:40] VITALS: BP 151/82
--- NOTE | 2017-08-22 16:17 | PDOC DISCHARGE SUMMARY ---
General - Admit/Disc Date/PCP Admission Date/Primary Care Provider: 08/19/17 03:42 Discharge Date: 08/22/17 - Discharge Diagnosis (1) Septic arthritis of knee, left Is this a current diagnosis for this admission?: Yes Summary: This most likely was not septic arthritis and was most likely secondary to gouty arthropathy. The patient had orthopedic evaluation with washing out the joint and cultures have been negative. Gout crystals were found. (2) Gout Is this a current diagnosis for this admission?: Yes Summary: Patient had swelling of his knee as well as his right ankle and this improved after being started on prednisone. He will be discharged home on a prednisone taper. (3) Atrial fibrillation Is this a current diagnosis for this admission?: Yes Summary: Patient is being restarted on his Coumadin at the time of discharge. Will need a follow-up PT/INR in 1 week. (4) CKD (chronic kidney disease), stage III Is this a current diagnosis for this admission?: Yes (5) Congestive heart failure (CHF) Is this a current diagnosis for this admission?: Yes Summary: The patient's ejection fraction is not known. He had no evidence for volume overload while here. (6) Diabetes mellitus Is this a current diagnosis for this admission?: Yes (7) Hyperlipidemia associated with type 2 diabetes mellitus Is this a current diagnosis for this admission?: Yes (8) Hypertension Is this a current diagnosis for this admission?: Yes (9) Morbid obesity with BMI of 40.0-44.9, adult Is this a current diagnosis for this admission?: Yes (10) Obstructive sleep apnea Is this a current diagnosis for this admission?: Yes - Additional Information Resuscitation Status: Full Code Discharge Diet: Cardiac, Diabetic Discharge Activity: Activity As Tolerated Home Medications: Amiodarone HCl [Cordarone 200 mg Tablet] 200 mg PO Q12 08/19/17 Carvedilol 25 mg PO Q12 08/19/17 Furosemide [Lasix] 40 mg PO DAILY 08/19/17 Lisinopril 20 mg PO BID 08/19/17 Pravastatin Sodium 20 mg PO QHS 08/19/17 Warfarin Sodium 3 mg PO MOWEFR@1000 PRN 08/19/17 Potassium Chloride [K-Tab ER] 20 meq PO ACBRKFST 08/20/17 Amox Tr/Potassium Clavulanate [Augmentin 875-125 mg Tablet] 1 tab PO BID #20 tablet 08/22/17 Oxycodone HCl/Acetaminophen [Percocet 5-325 mg Tablet] 1 tab PO Q6HP PRN #10 tablet 08/22/17 Prednisone [Deltasone 20 mg Tablet] 10 mg PO DAILY #39 tablet 08/22/17 History of Present Illness History of Present Illness: JOON JANG is a 57 year old male who has a history of diabetes, hypertension and atrial fibrillation as well as obstructive sleep apnea who presented to emergency room with left knee swelling for 3 days prior to this. Patient also had some fevers and chills. The patient also said lower extremity edema was noted to have an elevated white blood cell count along with swelling of his left knee. Arthrocentesis was done in the emergency room showed large amount of turbulent fluid. Patient was admitted and started on antibiotics for presumed septic arthritis. Hospital Course Hospital Course: 57-year-old male admitted with presumed septic arthritis because of swelling on his left knee along with an elevated white count. The patient was started on broad-spectrum antibiotics and orthopedic surgery evaluated the patient. He had his left knee washed out and the fluid obtained from his knee show gout crystals to be present. It is felt that this most likely represents a gouty arthropathy and actually not septic arthritis. The patient also did have swelling of his right ankle after being hospitalized. Patient was started on prednisone and had improvement in the swelling in both his knee and his ankle. Because of the possibility of there being septic arthritis the patient had been started on antibiotics initially. He will be sent home to complete a course of oral Augmentin although is not entirely clear whether this is necessary. Patient also will be sent home on a course of prednisone. Patient's Coumadin was held while hospitalized because the need for surgery. He has been restarted on his Coumadin at his usual outpatient dose will have a follow-up PT/ INR in 1 week. Patient also was noted to have some chronic renal failure while here. He is instructed to avoid nonsteroidals. Physical Exam Vital Signs: Temp Pulse Resp BP Pulse Ox 97.5 F 48 L 20 151/82 H 91 L 08/22/17 11:31 08/22/17 11:31 08/22/17 11:31 08/22/17 11:31 08/22/17 11:31 Intake & Output 08/21/17 08/22/1708/23/17 06:59 06:59 06:59 Intake Total 6040 2166 Output Total 4206 770 Balance 1834 1396 Weight 125.6 kg 126.3 kg General appearance: PRESENT: no acute distress Eye exam: PRESENT: conjunctiva pink. ABSENT: scleral icterus Mouth exam: PRESENT: moist, tongue midline Neck exam: ABSENT: carotid bruit, JVD, lymphadenopathy, thyromegaly Respiratory exam: PRESENT: clear to auscultation henrry. ABSENT: rales, rhonchi, wheezes Cardiovascular exam: PRESENT: RRR. ABSENT: diastolic murmur, rubs, systolic murmur GI/Abdominal exam: PRESENT: normal bowel sounds, soft. ABSENT: distended, guarding, mass, organolmegaly, rebound, tenderness Extremities exam: PRESENT: other - Patient has a small effusion the right ankle. Left knee shows a clean dressing in place.. ABSENT: calf tenderness, clubbing Neurological exam: PRESENT: alert, awake, oriented to person, oriented to place , oriented to time, oriented to situation, CN II-XII grossly intact. ABSENT: motor sensory deficit Psychiatric exam: PRESENT: appropriate affect Skin exam: PRESENT: dry, intact, warm. ABSENT: cyanosis, rash Results Laboratory Results: 08/22/17 04:14 08/22/17 04:14 08/22/17 08/22/17 04:14 04:14 WBC 15.5 H RBC 4.26 L Hgb 13.4 L Hct 38.9 MCV 91 MCH 31.5 MCHC 34.5 RDW 13.9 Plt Count 139 L Sodium 145.1 H Potassium 3.9 Chloride 109 H Carbon Dioxide 23 Anion Gap 13 BUN 26 H Creatinine 1.74 H Est GFR ( Amer) 49 L Est GFR (Non-Af Amer) 41 L Glucose 97 Calcium 9.0 08/21/17 06:20 Troponin I 0.021 Impressions: Chest X-Ray 08/18/17 21:51 IMPRESSION: NO SIGNIFICANT RADIOGRAPHIC FINDING IN THE CHEST. Foot X-Ray 08/18/17 21:51 IMPRESSION: NEGATIVE STUDY OF THE RIGHT FOOT. NO EXPLANATION FOR PAIN. Knee X-Ray 08/18/17 21:51 IMPRESSION: DEGENERATIVE JOINT DISEASE. Qualifiers PATEINT BEING DISCHARGED WITH ANY OF THE FOLLOWING DIAGNOSIS?: No Plan Discharge Plan: Patient is discharged home in stable condition. Will follow with primary care in 1 week. Will need a PT/INR drawn at that time. Time Spent: Greater than 30 Minutes
--- NOTE | 2017-08-23 13:30 | PDOC PROGRESS REPORT ---
Subjective Progress Note for:: 08/21/17 Subjective:: Patient is status post surgery of the left knee. Patient currently improved. Patient seems to be doing better with gradual improvement. Pt is denying any chest arm or neck discomfort. Patient denying any PND, orthopnea. Patient denied any sustained palpitations, dizziness, syncope, near syncope. Patient denying any fever chills. Patient denying any other significant discomfort. Patient is maintaining sinus rhythm. Review of systems: Rest review of systems negative. Medications: Medications have been reviewed. Physical Exam Vital Signs: Temp Pulse Resp BP Pulse Ox 97.5 F 57 L 20 119/73 94 08/21/17 08:01 08/21/17 08:01 08/21/17 08:01 08/21/17 08:01 08/21/17 08:01 Intake & Output 08/20/17 08/21/17 08/22/17 06:59 06:59 06:59 Intake Total 1450 6040 Output Total 700 4206 Balance 750 1834 Weight 125.6 kg Exam: GENERAL: well-nourished and in no acute distress. Alert and oriented x3 HEAD: Atraumatic, normocephalic. EYES: Pupils equal round and reactive to light, extraocular movements intact, sclera anicteric, conjunctiva are normal. ENT: TMs normal, nares patent, oropharynx clear without exudates. Moist mucous membranes. No oral ulcerations or bleeding gums noted NECK: supple without lymphadenopathy. Trachea is central. No cervical or axillary lymphadenopathy noted. Carotids are 2+, JVD WNL LUNGS: Respiration seems nonlabored, no significant accessory muscle action noted. Breath sounds clear to auscultation bilaterally and equal noted. No wheezes rales or rhonchi noted. No significant dullness noted on percussion. CHEST: Palpation of the chest wall shows no significant chest wall tenderness. No other significant abnormalities noted. HEART: [place] [employer], No PSH, 1/6 TOD aortic area, 1/6 fernandez systolic murmur mitral area, no rubs, no gallops. ABDOMEN: Soft, no significant tenderness appreciated, normoactive bowel sounds. No guarding, no rebound. No rigidity noted . No masses appreciated. EXTREMITIES: Pedal pulses are 1-2+, no calf tenderness noted. No clubbing or cyanosis. 1+ pedal edema noted NEUROLOGICAL: Focused neurological exam showed no significant neurologic deficit. Normal speech, no focal weakness appreciated. PSYCH: Normal mood, normal affect. Judgment and insight within normal limits. SKIN: No significant ecchymosis, rash, ulcerations or signs of pruritus noted. MUSCULOSKELETAL EXAM: No significant joint swelling noted. Left knee swollen with status post surgery. Results Laboratory Results: 08/21/17 06:20 08/21/17 06:20 08/20/17 08/20/17 08/21/17 11:50 19:25 05:40 WBC 9.9 RBC 4.36 Hgb 13.7 Hct 40.0 MCV 92 MCH 31.4 MCHC 34.3 RDW 14.0 Plt Count 118 L Seg Neutrophils % Lymphocytes % Monocytes % Eosinophils % Basophils % Absolute Neutrophils Absolute Lymphocytes Absolute Monocytes Absolute Eosinophils Absolute Basophils Sodium Potassium Chloride Carbon Dioxide Anion Gap BUN Creatinine Est GFR ( Amer) Est GFR (Non-Af Amer) Glucose Calcium Magnesium Urine Color YELLOW Urine Appearance SLIGHTLY-CLOUDY Urine pH 6.0 Ur Specific [place] 1.025 Urine Protein NEGATIVE Urine Glucose (UA) NEGATIVE Urine Ketones NEGATIVE Urine Blood NEGATIVE Urine Nitrite NEGATIVE Ur Leukocyte Esterase NEGATIVE Urine WBC (Auto) 1 Urine RBC (Auto) 0 Fluid Type SYNOVIAL Fluid Source KNEE Fluid Color YELLOW Fluid Appearance CLOUDY Fluid Viscosity MODERATELY VISCOUS Fluid WBC 01357 Fluid RBC 1366 08/21/17 08/21/17 06:20 06:20 WBC 9.3 RBC 4.23 L Hgb 13.2 L Hct 38.7 MCV 92 MCH 31.3 MCHC 34.2 RDW 13.9 Plt Count 126 L Seg Neutrophils % 67.3 Lymphocytes % 16.3 Monocytes % 11.8 Eosinophils % 4.1 Basophils % 0.5 Absolute Neutrophils 6.2 Absolute Lymphocytes 1.5 Absolute Monocytes 1.1 Absolute Eosinophils 0.4 Absolute Basophils 0.0 Sodium 143.5 Potassium 4.0 Chloride 108 H Carbon Dioxide 23 Anion Gap 13 BUN 23 H Creatinine 1.79 H Est GFR ( Amer) 48 L Est GFR (Non-Af Amer) 39 L Glucose 111 H Calcium 8.6 Magnesium 2.2 Urine Color Urine Appearance Urine pH Ur Specific [place] Urine Protein Urine Glucose (UA) Urine Ketones Urine Blood Urine Nitrite Ur Leukocyte Esterase Urine WBC (Auto) Urine RBC (Auto) Fluid Type Fluid Source Fluid Color Fluid Appearance Fluid Viscosity Fluid WBC Fluid RBC 08/21/17 06:20 Troponin I 0.021 EKG Comments: Sinus rhythm with right bundle branch block pattern. No sustained tachycardia or bradycardia arrhythmias noted. Impressions: Chest X-Ray 08/18/17 21:51 IMPRESSION: NO SIGNIFICANT RADIOGRAPHIC FINDING IN THE CHEST. Foot X-Ray 08/18/17 21:51 IMPRESSION: NEGATIVE STUDY OF THE RIGHT FOOT. NO EXPLANATION FOR PAIN. Knee X-Ray 08/18/17 21:51 IMPRESSION: DEGENERATIVE JOINT DISEASE. Assessment & Plan - Diagnosis (1) Preoperative cardiovascular examination Is this a current diagnosis for this admission?: Yes (2) Paroxysmal atrial fibrillation Is this a current diagnosis for this admission?: Yes (3) Obstructive sleep apnea Is this a current diagnosis for this admission?: Yes (4) Hypertension Qualifiers: Hypertension type: essential hypertension Qualified Code(s): I10 - Essential (primary) hypertension Is this a current diagnosis for this admission?: Yes (5) Diabetes Qualifiers: Diabetes mellitus type: type 2 Diabetes mellitus complication status: with unspecified complications Diabetes mellitus fpc 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 Qualified Code(s): E11.8 - Type 2 diabetes mellitus with unspecified complications Is this a current diagnosis for this admission?: Yes (6) Congestive heart failure (CHF) Qualifiers: Congestive heart failure type: unspecified congestive heart failure type Is this a current diagnosis for this admission?: Yes (7) CKD (chronic kidney disease), stage III Is this a current diagnosis for this admission?: Yes (8) CVA (cerebral vascular accident) Qualifiers: CVA mechanism: unspecified Qualified Code(s): I63.9 - Cerebral infarction, unspecified - Notes Notes: Postop cardiovascular examination: Patient is postop arthroscopic surgery and has done well. Paroxysmal atrial fibrillation: Patient currently maintaining sinus rhythm. Continue amiodarone therapy. Resume chronic anticoagulation. Obstructive sleep apnea: Patient currently not on CPAP therapy. Have advised patient to follow-up with me for institution of CPAP therapy. Hypertension: Blood pressure goal should be 135/85 or less in this patient. Currently well controlled. Diabetes: Recommend good control of blood sugar. However should avoid any hypoglycemia. Patient being expertly managed by primary care MUzma CHF: Currently compensated. BNP slightly high. Most likely related to diastolic dysfunction and right heart failure. Will order a 2D echocardiogram but this should not delay surgery. Cerebrovascular accident: Continue chronic Coumadin therapy, resume Coumadin as soon as feasible. Chronic kidney disease: Currently stable. Patient tells me that he is being followed by a brake operator. Patient currently is stable. Will sign off. Please reconsult if needed. - Time Time with patient: 15-25 minutes - CODE STATUS was discussed, patient remains full code. Surrogate decision-maker patient's . Multiple medical problems were addressed. More than 50% of the time spent coordinating care, discussing management plans with involved caregivers. Management plans discussed with involved personnels. Medical decision making was of moderate to high complexity , patient's has multiple comorbidities. Medications reviewed and adjusted accordingly: Yes
== END 2017-08-22 12:31 | disposition home or self-care (01) | DRG 488 ==
LOC: ER 19:26 → EH 08-19 03:42 → 4N 08-19 06:11
PROVIDERS: ADMIT Family Medicine; ATTEND Family Medicine
PROC: 0S9D3ZX Drainage of Left Knee Joint, Percutaneous Approach, Diagnostic (ICD-10-PCS; 2017-08-20)
PROC: 0SBD4ZZ Excision of Left Knee Joint, Percutaneous Endoscopic Approach (ICD-10-PCS; principal; 2017-08-20 11:30)
DX: M1A.9XX0 Chronic gout, unspecified, without tophus (tophi) (principal); I13.0 Hypertensive heart and chronic kidney disease with heart failure and stage 1 through stage 4 chronic kidney disease, or unspecified chronic kidney disease; Z68.41 Body mass index [BMI] 40.0-44.9, adult; I50.30 Unspecified diastolic (congestive) heart failure; I48.91 Unspecified atrial fibrillation; E11.22 Type 2 diabetes mellitus with diabetic chronic kidney disease; N18.3 Chronic kidney disease, stage 3 (moderate); G47.33 Obstructive sleep apnea (adult) (pediatric); M19.90 Unspecified osteoarthritis, unspecified site; E66.01 Morbid (severe) obesity due to excess calories; I25.10 Atherosclerotic heart disease of native coronary artery without angina pectoris; Z79.899 Other long term (current) drug therapy; Z79.01 Long term (current) use of anticoagulants; Z86.73 Personal history of transient ischemic attack (TIA), and cerebral infarction without residual deficits
CPT/HCPCS: 01400; 36415; 71020; 80048; 80053; 80202; 81001; 82272; 82962; 83735; 83880; 84484; 84550; 85025; 85027; 85610; 85652; 85730; 86140; 87040; 87070; 87075; 87205; 89050; 89060; 93005; 93010; 96365; 96375; 99284; J0696; J1644; J1741; J1940; J2250; J2270; J2704; J3010; J3370; J3490; J7050; J7060; J7512

== ENCOUNTER 2017-09-30 16:52 | Emergency (ER) | payer SELFPAY ==
[2017-09-30 17:40] VITALS: BP 125/80
[2017-09-30] MEDS ORDERED: OXYCODONE-ACETAMINOPHEN 5-325 MG TABLET PO ONE (18:24)
--- NOTE | 2017-09-30 18:25 | ER Document Report ---
ED Extremity Problem, Upper - General Chief Complaint: Arm Problem Stated Complaint: ARM SWELLING Time Seen by Provider: 09/30/17 18:12 Mode of Arrival: Ambulatory Information source: Patient Notes: Patient is a 57-year-old male who presents to the ER today for swelling and pain , redness to his left elbow 2 days. Patient was seen here last month for the same issue except it was to his left knee. Patient was admitted for possible septic arthritis and discharged with a diagnosis after orthopedic surgical evaluation with gout arthropathy. He was placed on antibiotics he states and given a steroid taper and his left knee has completely improved per patient. Patient states that he eats a lot of red meat but has not drink any alcohol recently. He is a diabetic with renal impairment. He denies any injury to the left elbow, fevers or chills. He denies any history of MRSA. TRAVEL OUTSIDE OF THE [place] IN LAST 30 DAYS: No - Related Data Allergies/Adverse Reactions: No Known Allergies Allergy (Verified 09/30/17 16:54) Past Medical History - General Information source: Patient - Social History Smoking Status: Unknown if Ever Smoked Family History: COPD, DM - Past Medical History Cardiac Medical History: Reports: Hx Atrial Fibrillation, Hx Congestive Heart Failure, Hx Coronary Artery Disease, Hx Hypercholesterolemia, Hx Hypertension Pulmonary Medical History: Reports: Hx Sleep Apnea Endocrine Medical History: Reports: Hx Diabetes Mellitus Type 2 Musculoskeltal Medical History: Reports Hx Arthritis Psychiatric Medical History: Denies: Hx Depression Past Surgical History: Reports: Hx Appendectomy Review of Systems - Review of Systems Constitutional: No symptoms reported EENT: No symptoms reported Cardiovascular: No symptoms reported Respiratory: No symptoms reported Gastrointestinal: No symptoms reported Genitourinary: No symptoms reported Male Genitourinary: No symptoms reported Musculoskeletal: No symptoms reported Skin: See HPI Hematologic/Lymphatic: No symptoms reported Neurological/Psychological: No symptoms reported Physical Exam - Vital signs Vitals: Temp Pulse Resp BP Pulse Ox 97.4 F 71 16 125/80 98 09/30/17 17:37 09/30/17 17:37 09/30/17 17:37 09/30/17 17:37 09/30/17 17:37 - Notes Notes: PHYSICAL EXAMINATION: GENERAL: Well-appearing and in no acute distress. HEAD: Atraumatic, normocephalic. EYES: Pupils equal round and reactive to light, extraocular movements intact, sclera anicteric, conjunctiva are normal. NECK: Normal range of motion, supple without lymphadenopathy LUNGS: CTAB and equal. No wheezes rales or rhonchi. HEART: Regular rate and rhythm without murmurs ABDOMEN: Soft, no tenderness. No guarding, no rebound BACK: no vertebral tenderness, normal ROM GI/: no CVA tenderness EXTREMITIES: Normal range of motion, no pitting edema. No cyanosis. NEUROLOGICAL: Cranial nerves grossly intact. Normal sensory/motor exams. PSYCH: Normal mood, normal affect. SKIN: Warm, Dry, normal turgor, erythema and edema to the left dorsal elbow, exquisitely tender to palpation, warm to the touch Course - Re-evaluation Re-evalutation: 09/30/17 20:46 Patient's white count is a little lower than it was when he was discharged, patient was discharged with a diagnosis of a gout arthropathy. I will treat him today with colchicine 2 doses to help with the flare, however I will not place him on this as he does have renal impairment. I will place him on prednisone taper and Augmentin which is what he was sent home with from the hospital last time that he states improved the left knee. Patient does not want to stay in the hospital, I did offer admission today. - Vital Signs Vital signs: Temp Pulse Resp BP Pulse Ox 97.4 F 71 16 125/80 98 09/30/17 17:37 09/30/17 17:37 09/30/17 17:37 09/30/17 17:37 09/30/17 17:37 - Laboratory Result Diagrams: 09/30/17 19:19 09/30/17 19:19 Laboratory results interpreted by me: 09/30/17 09/30/17 19:19 19:19 WBC 14.7 H RDW 14.5 H Absolute Neutrophils 11.4 H Carbon Dioxide 21 L BUN 26 H Creatinine 1.98 H Est GFR ( Amer) 43 L Est GFR (Non-Af Amer) 35 L ALT 120 H Alkaline Phosphatase 153 H Discharge - Discharge Clinical Impression: Gout of left elbow Qualifiers: Gout etiology: due to renal impairment Chronicity: acute Qualified Code(s): M10.322 - Gout due to renal impairment, left elbow Condition: Stable Disposition: HOME, SELF-CARE Instructions: Gout ([facility]), Gout Diet ([facility]) Additional Instructions: Return immediately for any new or worsening symptoms. Follow up with primary care provider, call tomorrow to make followup appointment. Prescriptions: Amox Tr/Potassium Clavulanate [Augmentin 875-125 Tablet] 1 tab PO BID 10 Days tablet Oxycodone HCl/Acetaminophen [Percocet 5-325 mg Tablet] 1 tab PO Q4 PRN #15 tab PRN Reason: Prednisone 5 mg PO DAILY #1 tab.ds.pk
[2017-09-30 19:31] LABS: ABSOLUTE BASOPHILS # (AUTO) 0.1 10^3/uL (0.0-0.2); ABSOLUTE EOSINOPHILS # (AUTO) 0.1 10^3/uL (0.0-0.6); ABSOLUTE LYMPHOCYTES (AUTO) 1.9 10^3/uL (0.5-4.7); ABSOLUTE MONOCYTES (AUTO) 1.2 10^3/uL (0.1-1.4); ABSOLUTE NEUT (AUTO) 11.4 10^3/uL (1.7-8.2); BASOPHILS % (AUTO) 0.6 % (0-2); EOSINOPHILS % (AUTO) 0.5 % (0-6); HEMOGLOBIN 14.9 g/dL (13.5-17.0); LYMPHOCYTES % (AUTO) 13.1 % (13-45); MEAN CORPUSCULAR HEMOGLOBIN 30.7 pg (27.0-33.4); MEAN CORPUSCULAR HGB CONC 33.8 g/dL (32.0-36.0); MEAN CORPUSCULAR VOLUME 91 fl (80-97); MONOCYTES % (AUTO) 8.5 % (3-13); PLATELET COUNT 228 10^3/uL (150-450); RED BLOOD COUNT 4.84 10^6/uL (4.35-5.55); RED CELL DISTRIBUTION WIDTH 14.5 % (11.5-14.0); SEGMENTED NEUTROPHILS % (AUTO) 77.3 % (42-78); TOTAL CELLS COUNTED % (AUTO) 100 %; WHITE BLOOD COUNT 14.7 10^3/uL (4.0-10.5)
[2017-09-30 19:49] LABS: ALANINE AMINOTRANSFERASE 120 U/L (21-72); ALBUMIN 4.1 g/dL (3.5-5.0); ALKALINE PHOSPHATASE 153 U/L (38-126); ANION GAP 18 (5-19); ASPARTATE AMINO TRANSFERASE 45 U/L (17-59); BILIRUBIN,DIRECT 0.2 mg/dL (0.0-0.4); BILIRUBIN,TOTAL 0.9 mg/dL (0.2-1.3); BLOOD UREA NITROGEN 26 mg/dL (7-20); CALCIUM 9.9 mg/dL (8.4-10.2); CARBON DIOXIDE 21 mmol/L (22-30); CHLORIDE 100 mmol/L (98-107); GLUCOSE 108 mg/dL (75-110); POTASSIUM 4.9 mmol/L (3.6-5.0); SODIUM 139.1 mmol/L (137-145); TOTAL PROTEIN 7.6 g/dL (6.3-8.2); URIC ACID 7.8 mg/dL (3.5-8.5)
[2017-09-30] MEDS ORDERED: COLCHICINE 0.6 MG TABLET PO ONE ×2 (20:19→20:20)
== END 2017-09-30 20:38 | disposition home or self-care (01) ==
LOC: ER 16:52
DX: M10.3 Gout due to renal impairment (principal); M79.89 Other specified soft tissue disorders; M25.522 Pain in left elbow; E11.29 Type 2 diabetes mellitus with other diabetic kidney complication; N28.9 Disorder of kidney and ureter, unspecified
CPT/HCPCS: 36415; 80053; 84550; 85025; 87040; 99283

== ENCOUNTER 2017-11-15 18:20 | Inpatient (IN) | payer OTHER ==
[2017-11-15] MEDS ORDERED: ASPIRIN 81 MG TABLET, CHEWABLE PO ONE (19:43)
--- NOTE | 2017-11-15 19:44 | ER Document Report ---
ED Medical Screen (RME) - General Chief Complaint: Chest Pain Stated Complaint: CHEST PAIN, SWEATING Time Seen by Provider: 11/15/17 19:38 Mode of Arrival: Ambulatory Information source: Patient Notes: 57-year-old man with a history of atrial fibrillation (Coumadin), congestive heart failure who presents to the emergency room with intermittent chest discomfort and shortness of breath over the past few days. TRAVEL OUTSIDE OF THE [place] IN LAST 30 DAYS: No - Related Data Allergies/Adverse Reactions: No Known Allergies Allergy (Verified 09/30/17 16:54) Past Medical History - Past Medical History Cardiac Medical History: Reports: Hx Atrial Fibrillation, Hx Congestive Heart Failure, Hx Coronary Artery Disease, Hx Hypercholesterolemia, Hx Hypertension Pulmonary Medical History: Reports: Hx Sleep Apnea Endocrine Medical History: Reports: Hx Diabetes Mellitus Type 2 Renal/ Medical History: Denies: Hx Peritoneal Dialysis Musculoskeltal Medical History: Reports Hx Arthritis Psychiatric Medical History: Denies: Hx Depression Past Surgical History: Reports: Hx Appendectomy - Immunizations History of Influenza Vaccine for 07/2017 - 11/2017 Season: No Physical Exam - Vital signs Vitals: Temp Pulse Resp BP Pulse Ox 98.7 F 68 20 99/65 L 95 11/15/17 18:56 11/15/17 18:56 11/15/17 18:56 11/15/17 18:56 11/15/17 18:56 Course - Vital Signs Vital signs: Temp Pulse Resp BP Pulse Ox 98.7 F 68 20 99/65 L 95 11/15/17 18:56 11/15/17 18:56 11/15/17 18:56 11/15/17 18:56 11/15/17 18:56
[2017-11-15 20:24] LABS: ABSOLUTE EOSINOPHILS # (AUTO) 0.1 10^3/uL (0.0-0.6); ABSOLUTE LYMPHOCYTES (AUTO) 1.7 10^3/uL (0.5-4.7); ABSOLUTE MONOCYTES (AUTO) 0.8 10^3/uL (0.1-1.4); ABSOLUTE NEUT (AUTO) 3.5 10^3/uL (1.7-8.2); BASOPHILS % (AUTO) 0.5 % (0-2); EOSINOPHILS % (AUTO) 2.3 % (0-6); HEMATOCRIT 42.1 % (37.9-51.0); HEMOGLOBIN 14.4 g/dL (13.5-17.0); LYMPHOCYTES % (AUTO) 28.1 % (13-45); MEAN CORPUSCULAR HEMOGLOBIN 31.3 pg (27.0-33.4); MEAN CORPUSCULAR HGB CONC 34.2 g/dL (32.0-36.0); MEAN CORPUSCULAR VOLUME 91 fl (80-97); MONOCYTES % (AUTO) 12.9 % (3-13); PLATELET COUNT 195 10^3/uL (150-450); RED BLOOD COUNT 4.61 10^6/uL (4.35-5.55); RED CELL DISTRIBUTION WIDTH 14.7 % (11.5-14.0); SEGMENTED NEUTROPHILS % (AUTO) 56.2 % (42-78); TOTAL CELLS COUNTED % (AUTO) 100 %; WHITE BLOOD COUNT 6.2 10^3/uL (4.0-10.5)
--- NOTE | 2017-11-15 20:35 | RADIOLOGY REPORT (SQ) ---
EXAM DESCRIPTION: CHEST SINGLE VIEW COMPLETED DATE/TIME: 11/15/2017 8:23 pm REASON FOR STUDY: chest pain COMPARISON: 08/18/2017 EXAM PARAMETERS: NUMBER OF VIEWS: One view. TECHNIQUE: Single frontal radiographic view of the chest acquired. RADIATION DOSE: NA LIMITATIONS: None. FINDINGS: LUNGS AND PLEURA: No acute opacities, masses or pneumothorax. No pleural effusion. MEDIASTINUM AND HILAR STRUCTURES: No masses. Contour normal. HEART AND VASCULAR STRUCTURES: Heart normal in size. Normal vasculature. BONES: No acute findings. HARDWARE: None in the chest. OTHER: No other significant finding. IMPRESSION: NO ACUTE RADIOGRAPHIC FINDING IN THE CHEST. TECHNICAL DOCUMENTATION: JOB ID: [id number] [employer] All Rights Reserved
[2017-11-15 20:43] LABS: ALANINE AMINOTRANSFERASE 200 U/L (21-72); ALBUMIN 3.8 g/dL (3.5-5.0); ALKALINE PHOSPHATASE 117 U/L (38-126); ANION GAP 11 (5-19); ASPARTATE AMINO TRANSFERASE 170 U/L (17-59); BILIRUBIN,DIRECT 0.4 mg/dL (0.0-0.4); BILIRUBIN,TOTAL 0.8 mg/dL (0.2-1.3); BLOOD UREA NITROGEN 33 mg/dL (7-20); CALCIUM 9.5 mg/dL (8.4-10.2); CARBON DIOXIDE 24 mmol/L (22-30); CHLORIDE 104 mmol/L (98-107); CREATINE KINASE 99 U/L (55-170); GLUCOSE 115 mg/dL (75-110); POTASSIUM 4.6 mmol/L (3.6-5.0); SODIUM 138.8 mmol/L (137-145); TOTAL PROTEIN 7.4 g/dL (6.3-8.2)
[2017-11-15 21:05] LABS: CREATINE KINASE MB 0.68 ng/mL (<4.55); TROPONIN I 0.019 ng/mL
--- NOTE | 2017-11-15 22:37 | ER Document Report ---
ED General - General Chief Complaint: Chest Pain Stated Complaint: CHEST PAIN, SWEATING Time Seen by Provider: 11/15/17 19:38 Mode of Arrival: Ambulatory Notes: Patient is a 57-year-old male with a past medical history of diabetes, hypertension, atrial fibrillation anticoagulant on warfarin who presents with chest pain that is now resolved. Patient reports over the past several weeks he has had intermittent chest pain the last episode which was at 11 AM today. Describes it as a chest heaviness without any associated nausea, vomiting, diaphoresis or shortness of breath. He states the chest pain did resolve spontaneously. Nothing seems to trigger chest pain. He has not seen his primary care doctor regarding today's concerns. He denies any recent medication changes. TRAVEL OUTSIDE OF THE [place] IN LAST 30 DAYS: No - Related Data Allergies/Adverse Reactions: No Known Allergies Allergy (Verified 09/30/17 16:54) Past Medical History - General Information source: Patient - Social History Smoking Status: Never Smoker Frequency of alcohol use: None Drug Abuse: None Lives with: Family Family History: COPD, DM Patient has suicidal ideation: No Patient has homicidal ideation: No - Past Medical History Cardiac Medical History: Reports: Hx Atrial Fibrillation, Hx Congestive Heart Failure, Hx Coronary Artery Disease, Hx Hypercholesterolemia, Hx Hypertension Pulmonary Medical History: Reports: Hx Sleep Apnea Endocrine Medical History: Reports: Hx Diabetes Mellitus Type 2 Renal/ Medical History: Denies: Hx Peritoneal Dialysis Musculoskeltal Medical History: Reports Hx Arthritis Psychiatric Medical History: Denies: Hx Depression Past Surgical History: Reports: Hx Appendectomy Review of Systems - Review of Systems Notes: Constitutional: Negative for fever. HENT: Negative for sore throat. Eyes: Negative for visual changes. Cardiovascular: Positive for chest pain. Respiratory: Negative for shortness of breath. Gastrointestinal: Negative for abdominal pain, vomiting or diarrhea. Genitourinary: Negative for dysuria. Musculoskeletal: Negative for back pain. Skin: Negative for rash. Neurological: Negative for headaches, weakness or numbness. 10 point ROS negative except as marked above and in HPI. Physical Exam - Vital signs Vitals: Temp Pulse Resp BP Pulse Ox 98.7 F 68 20 99/65 L 95 11/15/17 18:56 11/15/17 18:56 11/15/17 18:56 11/15/17 18:56 11/15/17 18:56 Interpretation: Hypotensive Notes: PHYSICAL EXAMINATION: GENERAL: Well-appearing, well-nourished and in no acute distress. HEAD: Atraumatic, normocephalic. EYES: Pupils equal round and reactive to light, extraocular movements intact, sclera anicteric, conjunctiva are normal. ENT: nares patent, oropharynx clear without exudates. Moderately dry mucous membranes. NECK: Normal range of motion, supple without lymphadenopathy LUNGS: Breath sounds clear to auscultation bilaterally and equal. No wheezes rales or rhonchi. HEART: Regular rate and rhythm without murmurs ABDOMEN: Soft, nontender, normoactive bowel sounds. No guarding, no rebound. No masses appreciated. EXTREMITIES: Normal range of motion, no pitting or edema. No cyanosis. NEUROLOGICAL: No focal neurological deficits. Moves all extremities spontaneously and on command. PSYCH: Normal mood, normal affect. SKIN: Warm, Dry, normal turgor, no rashes or lesions noted. Course - Re-evaluation Re-evalutation: 11/15/17 22:00 Presentation of chest pain in an otherwise well appearing patient. Low clinical suspicion for ACS given clinical history, exam, EKG without ST elevations or depressions, and negative initial troponin. PE also seems unlikely given clinical history, absence of tachycardia or dyspnea. Patient is Wells score0. CXR without evidence of pneumothorax or pneumonia. No widened mediastinum. Aortic dissection also seems unlikely given history, symmetric pulses, CXR, and symmetric blood pressures. He denies any symptoms whatsoever at time of my assessment. 11/15/17 22:42 Patient's blood pressure has begun to deteriorate. Will send a repeat troponin , provide IV fluids, and reassess 11/15/17 22:55 Bedside echocardiogram does not demonstrate any evidence of pericardial effusion , left ventricular hypertrophy, mild dyskinesis. Patient has no stigmata of volume overload on examination. No tachycardia is actually quite bradycardic in this context. Clinical history is not consistent with an aortic dissection as patient has symmetric hypotensive pressures in the bilateral upper extremities, is bradycardic he denies any chest pain or shortness of breath currently. Unfortunately I am unable to obtain a CT of the chest to further evaluate regardless as patient's creatinine precludes any contrast studies. He will be moved into the resuscitation room. Patient is critically ill at this time secondary to severe hypertension although continues to be overall nontoxic in appearance although he is much more diaphoretic than he was when I first evaluated him. At this point I am uncertain of what is causing the patient to become so profoundly hypotensive. There is no evidence of a tamponade, his vitals do not suggest sepsis as he is bradycardic without fever and has no leukocytosis. He is denying any complaints to me currently to assist in diagnosing further based on history. An aortic dissection who promptly symptoms although we typically would expect tachycardia in the context and again his blood pressures remain symmetric in the bilateral upper extremities. Moreover he continues to deny any chest pain. A abdominal aortic rupture would be another consideration but again he is denying any abdominal pain, fast exam is negative for any free fluid. A cholangitis seems extremely unlikely as patient has no right upper quadrant abdominal tenderness, no fever no leukocytosis 11/15/17 23:11 I have contacted radiology and informed that we cannot do a contrasted study given his creatinine even despite the emergent nature of this presentation. Will therefore proceed with dry imaging of the chest abdomen pelvis with CT. Patient continues to be awake, alert and responsive with bradycardia and hypotension. 11/15/17 23:24 I have gone with the patient's CT scan, I do not see any evidence of an aortic widening, or a abdominal aortic aneurysm. There is no free fluid in the abdomen. Alternative consideration would be that the patient has such profound systolic failure that he is in cardiogenic shock but this seems extremely improbable given that he is well in appearance, and has no stigmata of overt cardiac failure on exam. 11/15/17 23:48 Patient's blood pressure is gradually improving on norepinephrine. He continues to deny any symptoms. BNP is within normal limits, at this point effectively excluding cardiogenic shock particularly given my low clinical suspicion for this in the first place. His repeat troponin likewise remains normal. Awaiting CT scan results although I do not see any obvious pathology on my assessment. 11/16/17 01:09 Patient continues to do well in appearance, in no distress, blood pressure has improved significantly on norepinephrine but were unable to down titrate past 4 mcg/min. CT scans are unremarkable. I have discussed this case with Dr. Pride who recommended a trial of Narcan which did not do anything to affect the patient's blood pressure. He has agreed to accept the patient at this time. - Vital Signs Vital signs: Temp Pulse Resp BP Pulse Ox 98.7 F 68 19 96/71 L 97 11/15/17 18:56 11/15/17 18:56 11/16/17 02:28 11/16/17 02:28 11/16/17 02:28 - Laboratory Result Diagrams: 11/15/17 19:55 11/15/17 19:55 Laboratory results interpreted by me: 11/15/17 11/15/17 11/15/17 19:55 19:55 19:55 RDW 14.7 H PT 15.6 H APTT 41.9 H D-Dimer 0.95 H BUN 33 H Creatinine 2.69 H Est GFR ( Amer) 30 L Est GFR (Non-Af Amer) 25 L Glucose 115 H AST 170 H ALT 200 H TSH 11/15/17 22:45 RDW PT APTT D-Dimer BUN Creatinine Est GFR ( Amer) Est GFR (Non-Af Amer) Glucose AST ALT TSH 5.62 H - Diagnostic Test Radiology reviewed: Image reviewed, Reports reviewed Radiology results interpreted by me: 11/15/17 22:38 Chest x-ray: No acute infiltrate or pneumothorax - EKG Interpretation by Me Additional EKG results interpreted by me: 11/15/17 22:38 Sinus rhythm. Rate 63. No ST elevations or depressions. QTC is 504. Critical Care Note - Critical Care Note Total time excluding time spent on procedures (mins): 37 Comments: Critical care time spent obtaining history from patient or surrogate, discussions with consultants, development of treatment plan with patient or surrogate, evaluation of patient's response to treatment, examination of patient , ordering and performing treatments and interventions, ordering and review of laboratory studies, re-evaluation of patient's condition, ordering and review of radiographic studies and review of old charts Discharge - Discharge Clinical Impression: CKD (chronic kidney disease), stage III Congestive heart failure (CHF) Qualifiers: Heart failure type: unspecified Heart failure chronicity: acute on chronic Qualified Code(s): I50.9 - Heart failure, unspecified Hypotension (arterial) Qualifiers: Hypotension type: unspecified hypotension type Qualified Code(s): I95.9 - Hypotension, unspecified Condition: Fair Disposition: ADMITTED INPATIENT Admitting Provider: Hospitalist - [facility] Admitted: ICU
[2017-11-15] MEDS ORDERED: NORMAL SALINE 1000 ML 1,000 ML IV ONE (22:41)
[2017-11-15] MEDS ORDERED: DEXTROSE 5%-WATER 250 ML with NOREPINEPHRINE BITARTRATE 4 MG IV PRN ×2 (22:54)
[2017-11-15] MEDS ORDERED: NOREPINEPHRINE BITARTRATE INJ/PF 4 MG/4 ML SDV IV ONE (23:07)
[2017-11-15 23:16] LABS: INTERNATIONAL RATION (INR) 1.16; PROTHROMBIN TIME 15.6 SEC (11.4-15.4)
[2017-11-15 23:17] LABS: PARTIAL THROMBOPLASTIN TIME 41.9 SEC (23.5-35.8)
[2017-11-15 23:19] LABS: D-DIMER 0.95 ug/mL (0.00-0.50)
--- NOTE | 2017-11-16 00:14 | RADIOLOGY REPORT (SQ) ---
EXAM DESCRIPTION: CT CHEST WITHOUT (accession [id number]), CT ABD/PELVIS NO ORAL OR IV (accession [id number]) CLINICAL HISTORY: 57 years Male, hypotension, chest pain COMPARISON: None. TECHNIQUE: No contrast. Coronal and sagittal reformat. This exam was performed according to our departmental dose-optimization program, which includes automated exposure control, adjustment of the mA and/or kV according to patient size and/or use of iterative reconstruction technique. FINDINGS: No acute findings at the chest, abdomen, or pelvis. No free fluid and no free air. Prominent 1.0 x 0.9 cm anterior mediastinal lymph node.3.6 cm exophytic cyst of the right kidney and likely benign 1.2 cm low-attenuation left renal cyst not definitively characterized. Minimal bilateral perinephric fat stranding. Moderate coronary arterial calcification. Mild disc desiccation between the L4 and S1 levels. Moderate L5-S1 disc bulge. Unenhanced inferior neck, axillae, mediastinum, lungs, airway, lymphatics, heart, vasculature, intra-abdominal/intrapelvic structures, and musculoskeleton appear otherwise unremarkable. IMPRESSION: No acute findings.
--- NOTE | 2017-11-16 00:14 | RADIOLOGY REPORT (SQ) ---
EXAM DESCRIPTION: CT CHEST WITHOUT (accession [id number]), CT ABD/PELVIS NO ORAL OR IV (accession [id number]) CLINICAL HISTORY: 57 years Male, hypotension, chest pain COMPARISON: None. TECHNIQUE: No contrast. Coronal and sagittal reformat. This exam was performed according to our departmental dose-optimization program, which includes automated exposure control, adjustment of the mA and/or kV according to patient size and/or use of iterative reconstruction technique. FINDINGS: No acute findings at the chest, abdomen, or pelvis. No free fluid and no free air. Prominent 1.0 x 0.9 cm anterior mediastinal lymph node.3.6 cm exophytic cyst of the right kidney and likely benign 1.2 cm low-attenuation left renal cyst not definitively characterized. Minimal bilateral perinephric fat stranding. Moderate coronary arterial calcification. Mild disc desiccation between the L4 and S1 levels. Moderate L5-S1 disc bulge. Unenhanced inferior neck, axillae, mediastinum, lungs, airway, lymphatics, heart, vasculature, intra-abdominal/intrapelvic structures, and musculoskeleton appear otherwise unremarkable. IMPRESSION: No acute findings.
[2017-11-16] MEDS ORDERED: NALOXONE HCL INJ/PF 0.4 MG/1 ML SDV IV ONE (00:28)
[2017-11-16] MEDS ORDERED: CALCIUM GLUCONATE 1,000 MG in DEXTROSE 5%-WATER 50 ML IV ONE (01:12)
[2017-11-16] MEDS ORDERED: GLUCAGON,HUMAN RECOMB 1 MG INJ SUBCUT ONE (01:12)
[2017-11-16] MEDS ORDERED: NORMAL SALINE 1000 ML 2,000 ML IV ONE (01:15)
[2017-11-16] MEDS ORDERED: IPRATROPIUM/ALBUTEROL 0.5-2.5 MG/3 ML AMPUL NEB ONE (01:17)
[2017-11-16] MEDS ORDERED: GLUCAGON,HUMAN RECOMB 1 MG INJ IM PRN (01:22)
[2017-11-16] MEDS ORDERED: INSULIN LISPRO 100 UNIT/ML 3 ML VIAL SUBCUT PRN (01:22)
[2017-11-16] MEDS ORDERED: DEXTROSE 50%-WATER 25 GM/50 ML DISP.SYRIN IV PRN ×2 (01:22)
[2017-11-16] MEDS ORDERED: DEXTROSE 40% GEL 15 GM TUBE PO PRN ×2 (01:22)
[2017-11-16] MEDS ORDERED: DEXTROSE 5%-WATER 250 ML with PHENYLEPHRINE HCL 40 MG IV PRN ×2 (01:26)
[2017-11-16 01:49] LABS: URINE AMPHETAMINES SCREEN NEGATIVE; URINE BARBITURATES SCREEN NEGATIVE; URINE BENZODIAZEPINES SCREEN NEGATIVE; URINE COCAINE SCREEN NEGATIVE; URINE MARIJUANA (THC) SCREEN NEGATIVE; URINE METHADONE SCREEN NEGATIVE; URINE PHENCYCLIDINE SCREEN NEGATIVE
[2017-11-16] MEDS ORDERED: CALCIUM GLUCONATE 1000 MG/10 ML INJ IV ONE (05:09)
--- NOTE | 2017-11-16 06:10 | PDOC H&P ---
History of Present Illness Admission Date/PCP: 11/16/17 02:17 PAM MARIN PA-C Patient complains of: Chest pain and lightheadedness History of Present Illness: JOON JANG is a 57 year old male with a past medical history of diabetes , hypertension, atrial fibrillation on Coumadin, congestive heart failure and stage III chronic kidney disease. He presents after 2 days of fatigue, orthostasis and an episode of chest tightness not associated with shortness of breath, nausea vomiting or diaphoresis which prompts evaluation in the emergency room. He is found to have bradycardia, hypotension and elevated LFTs with an otherwise unremarkable workup. Patient denies recent change in medications, diet or lifestyle and otherwise feels well. He he receives 1 L of normal saline placed on Flakito-Synephrine and referred to the hospitalist for admission. Patient's blood pressure medication include lisinopril, Coreg and amiodarone. Past Medical History Cardiac Medical History: Reports: Atrial Fibrillation, Congestive Heart Failure , Coronary Artery Disease, Hyperlipidema, Hypertension Pulmonary Medical History: Reports: Sleep Apnea Endocrine Medical History: Reports: Diabetes Mellitus Type 2, Obesity Musculoskeltal Medical History: Reports: Arthritis Psychiatric Medical History: Denies: Depression Past Surgical History Past Surgical History: Reports: Appendectomy Social History Information Source: Patient Lives with: Family Smoking Status: Never Smoker Frequency of Alcohol Use: None Hx Recreational Drug Use: No Drugs: None Hx Prescription Drug Abuse: No - Advance Directive Resuscitation Status: Full Code Family History Family History: COPD, DM Parental Family History Reviewed: Yes Children Family History Reviewed: Yes Sibling(s) Family History Reviewed.: Yes Medication/Allergy Home Medications: Amiodarone HCl [Cordarone 200 mg Tablet] 200 mg PO Q12 08/19/17 Carvedilol 25 mg PO Q12 08/19/17 Furosemide [Lasix] 40 mg PO DAILY 08/19/17 Lisinopril 20 mg PO BID 08/19/17 Pravastatin Sodium 20 mg PO QHS 08/19/17 Warfarin Sodium 3 mg PO MOWEFR@1000 PRN 08/19/17 Potassium Chloride [K-Tab ER] 20 meq PO [id number] 08/20/17 Amox Tr/Potassium Clavulanate [Augmentin 875-125 mg Tablet] 1 tab PO BID #20 tablet 08/22/17 Oxycodone HCl/Acetaminophen [Percocet 5-325 mg Tablet] 1 tab PO Q6HP PRN #10 tablet 08/22/17 Prednisone [Deltasone 20 mg Tablet] 10 mg PO DAILY #39 tablet 08/22/17 Amox Tr/Potassium Clavulanate [Augmentin 875-125 Tablet] 1 tab PO BID 10 Days tablet 09/30/17 Oxycodone HCl/Acetaminophen [Percocet 5-325 mg Tablet] 1 tab PO Q4 PRN #15 tab 09/30/17 Prednisone 5 mg PO DAILY #1 tab.ds.pk 09/30/17 Allergies/Adverse Reactions: No Known Allergies Allergy (Verified 09/30/17 16:54) Review of Systems Constitutional: PRESENT: as per HPI, fatigue, weakness. ABSENT: fever(s), headache(s), night sweats Eyes: ABSENT: visual disturbances Ears: ABSENT: hearing changes Cardiovascular: PRESENT: as per HPI Respiratory: ABSENT: cough, hemoptysis Gastrointestinal: ABSENT: abdominal pain, constipation, diarrhea, hematemesis, hematochezia, nausea, vomiting Genitourinary: ABSENT: dysuria, hematuria Musculoskeletal: ABSENT: joint swelling Integumentary: ABSENT: rash, wounds Neurological: ABSENT: abnormal gait, abnormal speech, confusion, dizziness, focal weakness, syncope Psychiatric: ABSENT: anxiety, depression, homidical ideation, suicidal ideation Endocrine: ABSENT: cold intolerance, heat intolerance, polydipsia, polyuria Hematologic/Lymphatic: ABSENT: easy bleeding, easy bruising Physical Exam Vital Signs: Temp Pulse Resp BP Pulse Ox 98.7 F 68 14 126/85 H 93 11/15/17 18:56 11/15/17 18:56 11/16/17 04:46 11/16/17 04:46 11/16/17 04:46 General appearance: PRESENT: cooperative, mild distress, morbidly obese Head exam: PRESENT: atraumatic, normocephalic Eye exam: PRESENT: conjunctiva pink, EOMI, PERRLA. ABSENT: scleral icterus Ear exam: PRESENT: normal external ear exam Mouth exam: PRESENT: dry mucosa, tongue midline Neck exam: ABSENT: carotid bruit, JVD, lymphadenopathy, thyromegaly Respiratory exam: PRESENT: clear to auscultation henrry. ABSENT: rales, rhonchi, wheezes Cardiovascular exam: PRESENT: bradycardia, irregular rhythm. ABSENT: clicks, diastolic murmur, gallop, systolic murmur, tachycardia Pulses: PRESENT: normal dorsalis pedis pul GI/Abdominal exam: PRESENT: normal bowel sounds, soft. ABSENT: distended, guarding, mass, organolmegaly, rebound, tenderness Rectal exam: PRESENT: deferred Extremities exam: PRESENT: full ROM. ABSENT: calf tenderness, clubbing, pedal edema Neurological exam: PRESENT: alert, awake, oriented to person, oriented to place , oriented to time, oriented to situation, CN II-XII grossly intact. ABSENT: motor sensory deficit Psychiatric exam: PRESENT: appropriate affect, normal mood. ABSENT: homicidal ideation, suicidal ideation Skin exam: PRESENT: dry, intact, warm. ABSENT: cyanosis, rash Results Impressions: Chest X-Ray 11/15/17 19:43 IMPRESSION: NO ACUTE RADIOGRAPHIC FINDING IN THE CHEST. Abdomen/Pelvis CT 11/15/17 23:10 IMPRESSION: No acute findings. Chest CT 11/15/17 23:10 IMPRESSION: No acute findings. Assessment & Plan - Diagnosis (1) Hypotension Is this a current diagnosis for this admission?: Yes Plan: Multifactorial secondary to hypovolemia and likely toxic levels of amiodarone, ICU admission, Flakito-Synephrine IV fluid challenge, follow-up amiodarone level, cardiac enzyme and chemistry. (2) Acute on chronic renal failure Is this a current diagnosis for this admission?: Yes Plan: Secondary to hypotension and hypovolemia. IV fluid challenge and Flakito- Synephrine. Follow-up chemistry (3) Elevated LFTs Is this a current diagnosis for this admission?: Yes Plan: Secondary to #1 follow-up LFT (4) Morbid obesity with BMI of 40.0-44.9, adult Is this a current diagnosis for this admission?: Yes Plan: Morbid obesity will evaluate for metabolic cause with evaluation of thyroid function and dietitian consultation (5) Obstructive sleep apnea Is this a current diagnosis for this admission?: Yes Plan: BiPAP - Time Time Spent: 50 to 70 Minutes - Inpatient Certification Medical Necessity: Need Close Monitoring Due to Risk of Patient Decompensation
[2017-11-16] MEDS: HEPARIN SOD (PORCINE) 5,000 UNIT/ML 1 ML SYRINGE SUBCUT SCH ×3 (06:40→22:23)
[2017-11-16 07:40] LABS: ALANINE AMINOTRANSFERASE 191 U/L (21-72); ALBUMIN 3.2 g/dL (3.5-5.0); ALKALINE PHOSPHATASE 106 U/L (38-126); ANION GAP 11 (5-19); ASPARTATE AMINO TRANSFERASE 152 U/L (17-59); BILIRUBIN,DIRECT 0.3 mg/dL (0.0-0.4); BILIRUBIN,TOTAL 0.6 mg/dL (0.2-1.3); BLOOD UREA NITROGEN 37 mg/dL (7-20); CARBON DIOXIDE 18 mmol/L (22-30); CHLORIDE 109 mmol/L (98-107); GLUCOSE 143 mg/dL (75-110); POTASSIUM 4.3 mmol/L (3.6-5.0); SODIUM 138.4 mmol/L (137-145); TOTAL PROTEIN 6.5 g/dL (6.3-8.2)
--- NOTE | 2017-11-16 09:51 | Progress Note ---
Provider Note Provider Note: The patient was admitted this morning at 06 100. He presents with bradycardia and hypotension likely induced by medications. There is one addition to the H& P that I gathered from the patient this morning. Recently, his lisinopril dose was increased from 20 mg to 40 mg. In any event we are holding the patient's antihypertensives. He is currently on norepinephrine which will be weaned as tolerated. Troponins are slightly elevated, but in the setting of renal failure if this does not appear to be significant. For details, please see full history and physical timed at 0601 this morning.
--- NOTE | 2017-11-16 11:01 | EKG REPORT ---
SEVERITY:- ABNORMAL ECG - SINUS RHYTHM RIGHT BUNDLE BRANCH BLOCK : Confirmed by: Marisa Perez 16-Nov-2017 11:01:30
--- NOTE | 2017-11-16 11:02 | EKG REPORT ---
SEVERITY:- ABNORMAL ECG - SINUS BRADYCARDIA RIGHT BUNDLE BRANCH BLOCK : Confirmed by: Marisa Perez 16-Nov-2017 11:01:24
[2017-11-16] MEDS: WARFARIN SODIUM 4 MG TABLET PO SCH (22:22)
[2017-11-17 04:21] LABS: ABSOLUTE BASOPHILS # (AUTO) 0.1 10^3/uL (0.0-0.2); ABSOLUTE EOSINOPHILS # (AUTO) 0.1 10^3/uL (0.0-0.6); ABSOLUTE LYMPHOCYTES (AUTO) 2.4 10^3/uL (0.5-4.7); ABSOLUTE MONOCYTES (AUTO) 0.8 10^3/uL (0.1-1.4); ABSOLUTE NEUT (AUTO) 3.4 10^3/uL (1.7-8.2); BASOPHILS % (AUTO) 1.3 % (0-2); EOSINOPHILS % (AUTO) 1.3 % (0-6); HEMOGLOBIN 13.6 g/dL (13.5-17.0); LYMPHOCYTES % (AUTO) 35.7 % (13-45); MEAN CORPUSCULAR VOLUME 91 fl (80-97); MONOCYTES % (AUTO) 11.3 % (3-13); PLATELET COUNT 175 10^3/uL (150-450); RED BLOOD COUNT 4.38 10^6/uL (4.35-5.55); RED CELL DISTRIBUTION WIDTH 14.7 % (11.5-14.0); SEGMENTED NEUTROPHILS % (AUTO) 50.4 % (42-78); TOTAL CELLS COUNTED % (AUTO) 100 %; WHITE BLOOD COUNT 6.7 10^3/uL (4.0-10.5)
[2017-11-17 04:48] LABS: ANION GAP 11 (5-19); BLOOD UREA NITROGEN 38 mg/dL (7-20); CALCIUM 9.1 mg/dL (8.4-10.2); CARBON DIOXIDE 20 mmol/L (22-30); CHLORIDE 110 mmol/L (98-107); GLUCOSE 108 mg/dL (75-110); POTASSIUM 4.2 mmol/L (3.6-5.0); SODIUM 140.8 mmol/L (137-145)
[2017-11-17] MEDS: HEPARIN SOD (PORCINE) 5,000 UNIT/ML 1 ML SYRINGE SUBCUT SCH ×3 (06:04→21:52)
[2017-11-17] MEDS ORDERED: NITROGLYCERIN 0.4 MG/TAB 25 TAB/BOTTLE SL PRN (11:33)
[2017-11-17 11:50] LABS: INTERNATIONAL RATION (INR) 1.29; PROTHROMBIN TIME 16.9 SEC (11.4-15.4)
--- NOTE | 2017-11-17 12:16 | PDOC CONSULTATION ---
Consultation Consult Date: 11/17/17 Attending physician:: PAULINO JACKSON Consult reason:: Chest pain, abnormal EKG History of Present Illness Admission Date/PCP: 11/16/17 02:17 PAM MARIN PA-C Patient complains of: Chest pain History of Present Illness: JOON JANG is a 57 year old male with a past medical history of diabetes , hypertension, atrial fibrillation on Coumadin, congestive heart failure and stage III chronic kidney disease. He presents after 2 days of fatigue, orthostasis and an episode of chest tightness not associated with shortness of breath, nausea vomiting or diaphoresis which prompts evaluation in the emergency room. He is found to have bradycardia, hypotension and elevated LFTs with an otherwise unremarkable workup. Patient denies recent change in medications, diet or lifestyle and otherwise feels well. He he receives 1 L of normal saline placed on Flakito-Synephrine and referred to the hospitalist for admission. Patient's blood pressure medication include lisinopril, Coreg and amiodarone. These medications were on hold. Patient today complains of recurring chest pain. Twelve-lead EKG obtained showed some increased T-wave inversion anterior precordial leads. Cardiac enzymes are ordered and are pending. Patient was seen in the intensive care unit. Patient has noted weight gain. He denies any recent cardiac evaluation. Past Medical History Cardiac Medical History: Reports: Atrial Fibrillation, Congestive Heart Failure , Coronary Artery Disease, Hyperlipidema, Hypertension Pulmonary Medical History: Reports: Sleep Apnea Endocrine Medical History: Reports: Diabetes Mellitus Type 2, Obesity Musculoskeltal Medical History: Reports: Arthritis Psychiatric Medical History: Denies: Depression Past Surgical History Past Surgical History: Reports: Appendectomy Social History Information Source: Patient Lives with: Family Smoking Status: Never Smoker Frequency of Alcohol Use: None Hx Recreational Drug Use: No Drugs: None Hx Prescription Drug Abuse: No - Advance Directive Resuscitation Status: Full Code Family History Family History: COPD, DM, Hypertension Parental Family History Reviewed: Yes Children Family History Reviewed: Yes Sibling(s) Family History Reviewed.: Yes Medication/Allergy Home Medications: Amiodarone HCl [Cordarone 200 mg Tablet] 200 mg PO Q12 11/16/17 Carvedilol [Coreg 25 mg Tablet] 25 mg PO Q12 11/16/17 Furosemide [Lasix 40 mg Tablet] 40 mg PO DAILY 11/16/17 Lisinopril [Prinivil 40 mg Tablet] 40 mg PO DAILY 11/16/17 Metformin HCl [Glucophage 500 mg Tablet] 500 mg PO BIDACBS 11/16/17 Potassium Chloride [K-Tab ER] 20 meq PO DAILY 11/16/17 Pravastatin Sodium [Pravachol] 20 mg PO QHS 11/16/17 Warfarin Sodium [Coumadin 4 mg Tablet] 4 mg PO QHS 11/16/17 Allergies/Adverse Reactions: No Known Allergies Allergy (Verified 09/30/17 16:54) Review of Systems Review of Systems: Please see history of present illness and past medical history as wall. Constitutional: No fever or chills reported. Head : No recent chronic headaches, recent head injury. Eyes: No recent eye pain, diplopia, redness, discharge, acute visual changes. Ears: No recent chronic ear pain, acute hearing loss, ear discharge. Oral cavity: No recent ulcerations, bleeding, oral cavity discomfort. Neck: No recent acute neck pain reported. Hematologic: No recent easy bruising or bleeding or hematologic malignancy reported. Lymphatic: No recent lymphatic malignancy, chronic lymphadenopathy reported yet Cardiovascular system review: See history of present illness. Respiratory system review: No recent chronic cough, hemoptysis, blood clots in the lungs reported. Shortness of breath on exertion Gastrointestinal system review: Negative for any recent acute or chronic abdominal pain, hematemesis, melena, recent change in bowel habits. Genitourinary system review: No recent acute or chronic hematuria, flank pain, UTI etc. reported. Skin system review: Negative for any recent abnormal bruising, no rash, no pruritus reported. Neurologic: No prior history of strokes, mini strokes, seizure disorder. Psychologic: No history of major psychosis or major depression reported. Musculoskeletal: Minor aches and pains reported. No acute joint swelling reported. Endocrine: No recent polyuria, polydipsia, recent heat or cold intolerance. Physical Exam Vital Signs: Temp Pulse Resp BP Pulse Ox 97.7 F 66 17 142/92 H 92 11/17/17 08:00 11/17/17 09:47 11/17/17 11:11 11/17/17 11:11 11/17/17 08:00 Intake & Output 11/16/17 11/17/17 11/18/17 06:59 06:59 06:59 Intake Total 440 Output Total 0 700 Balance 0 -260 Weight 119.8 kg 120.2 kg Exam: GENERAL: well-nourished and in no acute distress. Alert and oriented x3 HEAD: Atraumatic, normocephalic. EYES: Pupils equal round and reactive to light, extraocular movements intact, sclera anicteric, conjunctiva are normal. ENT: TMs normal, nares patent, oropharynx clear without exudates. Moist mucous membranes. No oral ulcerations or bleeding gums noted NECK: supple without lymphadenopathy. Trachea is central. No cervical or axillary lymphadenopathy noted. Carotids are 2+, JVD WNL LUNGS: Respiration seems nonlabored, no significant accessory muscle action noted. Bibasilar crackles noted. No wheezes rales or rhonchi noted. No significant dullness noted on percussion. CHEST: Palpation of the chest wall shows no significant chest wall tenderness. No other significant abnormalities noted. 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 ABDOMEN: Soft, no significant tenderness appreciated, normoactive bowel sounds. No guarding, no rebound. No rigidity noted . No masses appreciated. EXTREMITIES: Pedal pulses are 1-2+, no calf tenderness noted. No clubbing or cyanosis.trace pedal edema noted NEUROLOGICAL: Focused neurological exam showed no significant neurologic deficit. Normal speech, no focal weakness appreciated. PSYCH: Normal mood, normal affect. Judgment and insight within normal limits. SKIN: No significant ecchymosis, rash, ulcerations or signs of pruritus noted. MUSCULOSKELETAL EXAM: No significant joint swelling noted. Results Laboratory Results: 11/17/17 03:40 11/17/17 03:40 11/17/17 11/17/17 03:40 03:40 WBC 6.7 RBC 4.38 Hgb 13.6 Hct 40.0 MCV 91 MCH 31.0 MCHC 34.0 RDW 14.7 H Plt Count 175 Seg Neutrophils % 50.4 Lymphocytes % 35.7 Monocytes % 11.3 Eosinophils % 1.3 Basophils % 1.3 Absolute Neutrophils 3.4 Absolute Lymphocytes 2.4 Absolute Monocytes 0.8 Absolute Eosinophils 0.1 Absolute Basophils 0.1 Sodium 140.8 Potassium 4.2 Chloride 110 H Carbon Dioxide 20 L Anion Gap 11 BUN 38 H Creatinine 2.19 H Est GFR ( Amer) 38 L Est GFR (Non-Af Amer) 31 L Glucose 108 Calcium 9.1 11/17/17 10:59 Troponin I < 0.012 EKG Comments: Sinus rhythm, right bundle branch block pattern, some deepening T waves anterior precordial leads. Impressions: Chest X-Ray 11/15/17 19:43 IMPRESSION: NO ACUTE RADIOGRAPHIC FINDING IN THE CHEST. Abdomen/Pelvis CT 11/15/17 23:10 IMPRESSION: No acute findings. Chest CT 11/15/17 23:10 IMPRESSION: No acute findings. Assessment & Plan - Diagnosis (1) Chest pain Qualifiers: Chest pain type: unspecified Qualified Code(s): R07.9 - Chest pain, unspecified Is this a current diagnosis for this admission?: Yes (2) Abnormal EKG Is this a current diagnosis for this admission?: Yes (3) Bradycardia Is this a current diagnosis for this admission?: Yes (4) Hypotension Qualifiers: Hypotension type: unspecified hypotension type Qualified Code(s): I95.9 - Hypotension, unspecified Is this a current diagnosis for this admission?: Yes (5) Atrial fibrillation Qualifiers: Atrial fibrillation type: paroxysmal Qualified Code(s): I48.0 - Paroxysmal atrial fibrillation Is this a current diagnosis for this admission?: Yes (6) Diabetes mellitus Qualifiers: Diabetes mellitus type: type 2 Diabetes mellitus complication status: with kidney complications Diabetes mellitus complication detail: with chronic kidney disease Diabetes mellitus halfway insulin use: without long term care administrator use Chronic kidney disease stage: stage 3 (moderate) Qualified Code(s): E11.22 - Type 2 diabetes mellitus with diabetic chronic kidney disease; N18.3 - Chronic kidney disease, stage 3 (moderate); N18.3 - Chronic kidney disease, stage 3 (moderate) (7) Morbid obesity with BMI of 40.0-44.9, adult Is this a current diagnosis for this admission?: Yes (8) Obstructive sleep apnea Is this a current diagnosis for this admission?: Yes (9) CKD (chronic kidney disease) Qualifiers: Chronic kidney disease stage: stage 3 (moderate) Qualified Code(s): N18.3 - Chronic kidney disease, stage 3 (moderate) Is this a current diagnosis for this admission?: Yes (10) Hypertension Qualifiers: Hypertension type: essential hypertension Qualified Code(s): I10 - Essential (primary) hypertension Is this a current diagnosis for this admission?: Yes - Notes Notes: Chest pain: Patient CTA reviewed. He does have significant coronary calcification therefore has underlying CAD. At this point treat with aspirin, statins. Once heart rate improved will consider beta-irish therapy. Recommend DVT prophylaxis, cardiac enzymes. Will add Ranexa. Abnormal EKG: Concerning for underlying CAD. Bradycardia: Intermittent. Possible underlying sick sinus syndrome. Discussed that sleep apnea can cause bradycardia. Hypotension: Currently resolved. Was most likely related to medications and hypovolemia. Currently blood pressure is normalizing. Atrial fibrillation: Paroxysmal. Continue with chronic Coumadin therapy. Maintain INR between 2-3. Diabetes: Recommend good control of blood sugar. However should avoid any hypoglycemia and hyperglycemia. Patient being expertly managed by primary care M.D/hospitalist Obesity: Discussed adverse effect of overweight/obesity on cardiovascular event rate, sleep apnea, diabetes and hypertension et cetera. Patient has been recommended weight loss. Sleep apnea syndrome: Patient claims he does not have a CPAP machine. Discussed that he might consider losing a lot of weight and get on CPAP as this is likely to help prevent future cardiovascular event risk. HTN: Blood pressure goal in this patient is 135/85 or less. This was discussed with the patient. Currently blood pressure under reasonable control. Better medication for this patient are EZEKIEL inhibitor/ARB/beta irish etc. discussed side effects of uncontrolled hypertension and also severe hypotension. Chronic kidney disease: Monitor renal functions closely. This is a adverse prognostic factors. - Time Time Spent: 30 to 50 Minutes - CODE STATUS was discussed, patient remains full code. Surrogate decision-maker unchanged. Multiple medical problems were addressed. More than 50% of the time spent coordinating care, discussing management plans with involved caregivers. Management plans discussed with involved personnels. Medical decision making was of moderate to high complexity , patient's has multiple comorbidities. Medications reviewed and adjusted accordingly: Yes
[2017-11-17] MEDS ORDERED: LEVOTHYROXINE SODIUM 0.025 MG TABLET PO ONE (13:30)
--- NOTE | 2017-11-17 14:04 | PDOC PROGRESS REPORT ---
Subjective Progress Note for:: 11/17/17 Subjective:: Earlier this morning patient was having 3 out of 5 chest pain but now it is a 0 out of 5. Is not having shortness of breath. The pain is not radiating anywhere and remains in his anterior chest. No change with deep inspiration. Patient is not having difficulty moving his bowels. He has no dysuria. He is eating without difficulty. He is not dizzy or lightheaded. No tingling or numbness. Remainder of review of systems is performed and is negative. I have reviewed the patient's labs and pertinent diagnostics today. Reason For Visit: HYPOTENSION Physical Exam Vital Signs: Temp Pulse Resp BP Pulse Ox 97.5 F 63 25 H 134/105 H 95 11/17/17 12:00 11/17/17 12:00 11/17/17 12:42 11/17/17 12:42 11/17/17 12:00 Intake & Output 11/16/17 11/17/17 11/18/17 06:59 06:59 06:59 Intake Total 440 200 Output Total 0 700 Balance 0 -260 200 Weight 119.8 kg 120.2 kg General appearance: PRESENT: no acute distress, cooperative Head exam: PRESENT: atraumatic, normocephalic Eye exam: PRESENT: EOMI Mouth exam: PRESENT: moist, neck supple Respiratory exam: PRESENT: clear to auscultation henrry, unlabored Cardiovascular exam: PRESENT: RRR. ABSENT: systolic murmur Pulses: PRESENT: normal radial pulses GI/Abdominal exam: PRESENT: normal bowel sounds, soft. ABSENT: distended, guarding, tenderness Rectal exam: PRESENT: deferred Extremities exam: ABSENT: calf tenderness, pedal edema Neurological exam: PRESENT: alert, altered, awake, oriented to person, oriented to place, oriented to situation, CN II-XII grossly intact Psychiatric exam: PRESENT: appropriate affect. ABSENT: agitated, anxious Skin exam: PRESENT: dry, intact, warm Results Laboratory Results: 11/17/17 03:40 11/17/17 03:40 11/17/17 11/17/17 03:40 03:40 WBC 6.7 RBC 4.38 Hgb 13.6 Hct 40.0 MCV 91 MCH 31.0 MCHC 34.0 RDW 14.7 H Plt Count 175 Seg Neutrophils % 50.4 Lymphocytes % 35.7 Monocytes % 11.3 Eosinophils % 1.3 Basophils % 1.3 Absolute Neutrophils 3.4 Absolute Lymphocytes 2.4 Absolute Monocytes 0.8 Absolute Eosinophils 0.1 Absolute Basophils 0.1 Sodium 140.8 Potassium 4.2 Chloride 110 H Carbon Dioxide 20 L Anion Gap 11 BUN 38 H Creatinine 2.19 H Est GFR ( Amer) 38 L Est GFR (Non-Af Amer) 31 L Glucose 108 Calcium 9.1 11/17/17 10:59 Troponin I < 0.012 Impressions: Chest X-Ray 11/15/17 19:43 IMPRESSION: NO ACUTE RADIOGRAPHIC FINDING IN THE CHEST. Abdomen/Pelvis CT 11/15/17 23:10 IMPRESSION: No acute findings. Chest CT 11/15/17 23:10 IMPRESSION: No acute findings. Assessment & Plan - Diagnosis (1) Acute on chronic renal failure Is this a current diagnosis for this admission?: Yes Plan: Patient has stage III CKD. I do not know what his baseline renal function is. We will continue to monitor creatinine. We will avoid nephrotoxins as is possible though he is on an EZEKIEL inhibitor for his diabetes and heart failure. (2) Bradycardia Is this a current diagnosis for this admission?: Yes Plan: This has improved with discontinuation of amiodarone and beta-irish. He is in sinus rhythm in the low 60s. Will follow his heart rate and if safe tomorrow we will add his beta-irish back. We will continue to hold amiodarone for now. He may have an underlying sick sinus syndrome but that remains to be seen. (3) Chest pain Qualifiers: Chest pain type: unspecified Qualified Code(s): R07.9 - Chest pain, unspecified Is this a current diagnosis for this admission?: Yes Plan: Patient has evidence of coronary artery disease on EKG and imaging. He is having chest discomfort, unknown acute coronary syndrome status at this time. First troponin is pending. EKG showed T-wave inversions in the anterior precordial leads. Etiology has been consulted. Nitroglycerin tabs are ordered as needed. I have spoken with the nurse about how and when to administer. (4) Congestive heart failure (CHF) Qualifiers: Heart failure type: unspecified Heart failure chronicity: acute on chronic Qualified Code(s): I50.9 - Heart failure, unspecified Plan: Unknown type of heart failure. Echo cardiogram is pending. His blood pressure is improving and I have ordered his Lasix to restart tomorrow. His EZEKIEL inhibitor has been restarted today. Beta-irish continues to be on hold. Heart failure is currently compensated. (5) Elevated LFTs Is this a current diagnosis for this admission?: Yes Plan: Unclear etiology though patient has obesity and this could be events of fatty liver. LFTs will be repeated tomorrow. If fatty liver is suspected we will continue to psychologist counseling on the importance of weight loss and patient may need ultrasound as an outpatient. (6) Hypotension Qualifiers: Hypotension type: unspecified hypotension type Qualified Code(s): I95.9 - Hypotension, unspecified Is this a current diagnosis for this admission?: Yes Plan: This is improving. His EZEKIEL inhibitor has been restarted today. Lasix to be restarted tomorrow. Beta-irish still on hold due to low heart rate. (7) Atrial fibrillation Qualifiers: Atrial fibrillation type: paroxysmal Qualified Code(s): I48.0 - Paroxysmal atrial fibrillation Is this a current diagnosis for this admission?: Yes Plan: She is currently in sinus rhythm. We will continue his Lovenox and warfarin until the INR is therapeutic, INR is increasing and I will recheck it again tomorrow. (8) Diabetes mellitus Qualifiers: Diabetes mellitus type: type 2 Diabetes mellitus complication status: with kidney complications Diabetes mellitus complication detail: with chronic kidney disease Diabetes mellitus jail insulin use: without watermelon inspector use Chronic kidney disease stage: stage 3 (moderate) Qualified Code(s): E11.22 - Type 2 diabetes mellitus with diabetic chronic kidney disease; N18.3 - Chronic kidney disease, stage 3 (moderate); N18.3 - Chronic kidney disease, stage 3 (moderate) Plan: Continue current care, will aim for good glycemic control. We will continue to educate on the importance of weight loss. - Time Time Spent with patient: 35 or more minutes Medications reviewed and adjusted accordingly: Yes Anticipated discharge: Home Within: within 48 hours - Inpatient Certification Based on my medical assessment, after consideration of the patient's comorbidities, presenting symptoms, or acuity I expect that the services needed warrant INPATIENT care.: Yes I certify that my determination is in accordance with my understanding of Medicare's requirements for reasonable and necessary INPATIENT services [42 CFR 412.3e].: Yes Medical Necessity: Significant Comorbidiites Make Outpatient Treatment Too Risky , Need Close Monitoring Due to Risk of Patient Decompensation, Risk of Complication if Not Cared For in Hospital
--- NOTE | 2017-11-17 19:01 | XCELERA REPORT ---
[address] [place] [address] Transthoracic Echocardiogram Report Name: JOON JANG Age: 57 yrs Gender: Male : 1960 Patient Status: Inpatient Patient Location: ICU^605^A Study Date: 11/17/2017 01:34 PM Height: 67 in Weight: 264 lb BSA: 2.3 m2 Procedure: A complete two-dimensional transthoracic echocardiogram was performed (2D, M-mode, spectral and color flow Doppler). The study was technically difficult with many images being suboptimal in quality. Reason For Study: chf Ordering Physician: PAULINO JACKSON Performed By: Jessica Morrell Interpretation Summary LV EF is 50% Left ventricular systolic function is borderline reduced. There is borderline concentric left ventricular hypertrophy. The left ventricle is grossly normal size. Doppler measurements suggest pseudonormalized left ventricular relaxation, which is associated with grade II/IV or mild to moderate diastolic dysfunction Regional wall motion abnormalities cannot be excluded due to limited visualization. The right ventricle is mildly dilated. The right atrium is normal. The left atrium is borderline dilated. There is no mitral valve stenosis. There is a trace amount of mitral regurgitation No aortic regurgitation is present. There is no aortic valve stenosis No tricuspid regurgitation. The aortic root is not well visualized but is probably normal size. The inferior vena cava was not well visualized There is no pericardial effusion. MMode/2D Measurements & Calculations RVDd: 2.9 cm LVIDd: 6.1 cm FS: 25.5 % Ao root diam: 3.0 cm IVSd: 0.96 cm LVIDs: 4.5 cm EDV(Teich): 184.3 ml LVPWd: 0.99 cm ESV(Teich): 93.2 ml Ao root area: 7.0 cm2 EF(Teich): 49.5 % LA dimension: 3.2 cm Doppler Measurements & Calculations MV E max kasandra: MV P1/2t max kasandra: Ao V2 max: LV V1 max P.1 cm/sec 34.1 cm/sec 101.6 cm/sec 1.7 mmHg MV A max kasandra: MV P1/2t: 77.5 msec Ao max PG: LV V1 max: 63.7 cm/sec 4.1 mmHg 64.7 cm/sec MV E/A: 0.53 MVA(P1/2t): 2.8 cm2 MV dec slope: 128.7 cm/sec2 PA V2 max: 92.8 cm/sec PA max P.4 mmHg Left Ventricle The left ventricle is grossly normal size. There is borderline concentric left ventricular hypertrophy. Left ventricular systolic function is borderline reduced. LV EF is 50%. Doppler measurements suggest pseudonormalized left ventricular relaxation, which is associated with grade II/IV or mild to moderate diastolic dysfunction. Regional wall motion abnormalities cannot be excluded due to limited visualization. Right Ventricle The right ventricle is mildly dilated. Right ventricular function cannot be assessed due to poor image quality. Atria The right atrium is normal. The left atrium is borderline dilated. Mitral Valve The mitral valve is grossly normal. There is no mitral valve stenosis. There is a trace amount of mitral regurgitation. Aortic Valve The aortic valve is not well visualized secondary to technical limitations. There is no aortic valve stenosis. No aortic regurgitation is present. Tricuspid Valve The tricuspid valve is not well visualized secondary to technical limitations. There is no tricuspid stenosis. No tricuspid regurgitation. Pulmonic Valve The pulmonic valve is not well visualized. Great Vessels The aortic root is not well visualized but is probably normal size. The inferior vena cava was not well visualized. Effusions There is no pericardial effusion. : PAULINO JACKSON > Marisa Perez
[2017-11-17] MEDS: CARVEDILOL 3.125 MG TABLET PO SCH (21:48)
[2017-11-17] MEDS: ATORVASTATIN CALCIUM 40 MG TABLET PO SCH (21:48)
[2017-11-17] MEDS: WARFARIN SODIUM 4 MG TABLET PO SCH (21:52)
[2017-11-17] MEDS ORDERED: SIMVASTATIN 10 MG TABLET PO SCH (22:00)
--- NOTE | 2017-11-17 22:10 | EKG REPORT ---
SEVERITY:- ABNORMAL ECG - SINUS RHYTHM RIGHT BUNDLE BRANCH BLOCK WITH SECONDARY ST-T CHANGES : Confirmed by: Marisa Perez 17-Nov-2017 22:09:46
--- NOTE | 2017-11-17 22:10 | EKG REPORT ---
SEVERITY:- ABNORMAL ECG - SINUS RHYTHM RIGHT BUNDLE BRANCH BLOCK : Confirmed by: Marisa Perez 17-Nov-2017 22:08:35
[2017-11-18 05:26] LABS: INTERNATIONAL RATION (INR) 1.32; PROTHROMBIN TIME 17.2 SEC (11.4-15.4)
[2017-11-18] MEDS: HEPARIN SOD (PORCINE) 5,000 UNIT/ML 1 ML SYRINGE SUBCUT SCH ×2 (05:30→13:23)
[2017-11-18 05:50] LABS: ALANINE AMINOTRANSFERASE 161 U/L (21-72); ALBUMIN 3.1 g/dL (3.5-5.0); ALKALINE PHOSPHATASE 118 U/L (38-126); ANION GAP 12 (5-19); ASPARTATE AMINO TRANSFERASE 90 U/L (17-59); BILIRUBIN,DIRECT 0.3 mg/dL (0.0-0.4); BILIRUBIN,TOTAL 0.4 mg/dL (0.2-1.3); BLOOD UREA NITROGEN 29 mg/dL (7-20); CALCIUM 8.9 mg/dL (8.4-10.2); CARBON DIOXIDE 16 mmol/L (22-30); CHLORIDE 112 mmol/L (98-107); GLUCOSE 102 mg/dL (75-110); SODIUM 139.6 mmol/L (137-145); TOTAL PROTEIN 6.1 g/dL (6.3-8.2)
[2017-11-18] MEDS ORDERED: LEVOTHYROXINE SODIUM 0.025 MG TABLET PO SCH (06:00)
[2017-11-18] MEDS: LISINOPRIL 10 MG TABLET PO SCH (09:35)
[2017-11-18] MEDS: FUROSEMIDE 40 MG TABLET PO SCH (09:35)
[2017-11-18] MEDS: CARVEDILOL 3.125 MG TABLET PO SCH ×2 (09:36→21:47)
--- NOTE | 2017-11-18 11:25 | PDOC PROGRESS REPORT ---
Subjective Progress Note for:: 11/18/17 Subjective:: Patient seems to be doing better with gradual improvement. Pt is denying any chest arm or neck discomfort. Patient denying any PND, orthopnea. Patient denied any sustained palpitations, dizziness, syncope, near syncope. Patient denying any fever chills. Patient denying any other significant discomfort. Patient is maintaining sinus rhythm. Multiple twelve-lead EKG is reviewed. There were showing some secondary ST-T wave changes. Cardiac enzymes 2 negative. Patient claims he did not have any ischemia workup. Review of systems: Rest review of systems negative. Medications: Medications have been reviewed. Reason For Visit: HYPOTENSION Physical Exam Vital Signs: Temp Pulse Resp BP Pulse Ox 98.2 F 66 18 138/95 H 96 11/18/17 07:49 11/18/17 07:49 11/18/17 07:49 11/18/17 07:49 11/18/17 07:49 Intake & Output 11/17/17 11/18/17 11/19/17 06:59 06:59 06:59 Intake Total 440 1080 Output Total 700 0 Balance -260 1080 Weight 120.2 kg 117.9 kg Exam: GENERAL: well-nourished and in no acute distress. Alert and oriented x3 HEAD: Atraumatic, normocephalic. EYES: Pupils equal round and reactive to light, extraocular movements intact, sclera anicteric, conjunctiva are normal. ENT: TMs normal, nares patent, oropharynx clear without exudates. Moist mucous membranes. No oral ulcerations or bleeding gums noted NECK: supple without lymphadenopathy. Trachea is central. No cervical or axillary lymphadenopathy noted. Carotids are 2+, JVD WNL LUNGS: Respiration seems nonlabored, no significant accessory muscle action noted. Breath sounds clear to auscultation bilaterally and equal noted. No wheezes rales or rhonchi noted. No significant dullness noted on percussion. CHEST: Palpation of the chest wall shows no significant chest wall tenderness. No other significant abnormalities noted. HEART: [place] GUNNER MATE, No PSH, 1/6 TOD aortic area, 1/6 fernandez systolic murmur mitral area, no rubs, no gallops. ABDOMEN: Soft, no significant tenderness appreciated, normoactive bowel sounds. No guarding, no rebound. No rigidity noted . No masses appreciated. EXTREMITIES: Pedal pulses are 1-2+, no calf tenderness noted. No clubbing or cyanosis.trace to 1+ pedal edema noted NEUROLOGICAL: Focused neurological exam showed no significant neurologic deficit. Normal speech, no focal weakness appreciated. PSYCH: Normal mood, normal affect. Judgment and insight within normal limits. SKIN: No significant ecchymosis, rash, ulcerations or signs of pruritus noted. MUSCULOSKELETAL EXAM: No significant joint swelling noted. Results Laboratory Results: 11/17/17 03:40 11/18/17 04:25 11/18/17 04:25 Sodium 139.6 Potassium 4.0 Chloride 112 H Carbon Dioxide 16 L Anion Gap 12 BUN 29 H Creatinine 1.73 H Est GFR ( Amer) 50 L Est GFR (Non-Af Amer) 41 L Glucose 102 Calcium 8.9 Magnesium 2.1 Total Bilirubin 0.4 AST 90 H ALT 161 H Alkaline Phosphatase 118 Total Protein 6.1 L Albumin 3.1 L 11/17/17 11/17/17 10:59 20:07 Troponin I < 0.012 < 0.012 Impressions: Chest X-Ray 11/15/17 19:43 IMPRESSION: NO ACUTE RADIOGRAPHIC FINDING IN THE CHEST. Abdomen/Pelvis CT 11/15/17 23:10 IMPRESSION: No acute findings. Chest CT 11/15/17 23:10 IMPRESSION: No acute findings. Assessment & Plan - Diagnosis (1) Chest pain Qualifiers: Chest pain type: unspecified Qualified Code(s): R07.9 - Chest pain, unspecified Is this a current diagnosis for this admission?: Yes (2) Abnormal EKG Is this a current diagnosis for this admission?: Yes (3) Bradycardia Is this a current diagnosis for this admission?: Yes (4) Hypotension Qualifiers: Hypotension type: unspecified hypotension type Qualified Code(s): I95.9 - Hypotension, unspecified Is this a current diagnosis for this admission?: Yes (5) Atrial fibrillation Qualifiers: Atrial fibrillation type: paroxysmal Qualified Code(s): I48.0 - Paroxysmal atrial fibrillation Is this a current diagnosis for this admission?: Yes (6) Diabetes mellitus Qualifiers: Diabetes mellitus type: type 2 Diabetes mellitus complication status: with kidney complications Diabetes mellitus complication detail: with chronic kidney disease Diabetes mellitus long term care pharmacist insulin use: without senior living use Chronic kidney disease stage: stage 3 (moderate) Qualified Code(s): E11.22 - Type 2 diabetes mellitus with diabetic chronic kidney disease; N18.3 - Chronic kidney disease, stage 3 (moderate); N18.3 - Chronic kidney disease, stage 3 (moderate) (7) Morbid obesity with BMI of 40.0-44.9, adult Is this a current diagnosis for this admission?: Yes (8) Obstructive sleep apnea Is this a current diagnosis for this admission?: Yes (9) CKD (chronic kidney disease) Qualifiers: Chronic kidney disease stage: stage 3 (moderate) Qualified Code(s): N18.3 - Chronic kidney disease, stage 3 (moderate) Is this a current diagnosis for this admission?: Yes (10) Hypertension Qualifiers: Hypertension type: essential hypertension Qualified Code(s): I10 - Essential (primary) hypertension Is this a current diagnosis for this admission?: Yes - Notes Notes: Chest pain: Patient CTA reviewed. He does have significant coronary calcification therefore has underlying CAD. At this point treat with aspirin, statins. Once heart rate improved will consider beta-irish therapy. Recommend DVT prophylaxis, cardiac enzymes. Will add Ranexa. Will repeat EKG today to look for any additional evolving changes. Abnormal EKG: Concerning for underlying CAD. Patient to be scheduled for a nuclear stress test. Bradycardia: Intermittent. Possible underlying sick sinus syndrome. Discussed that sleep apnea can cause bradycardia. Patient currently being followed at [facility]. Hypotension: Currently resolved. Was most likely related to medications and hypovolemia. Currently blood pressure is normalizing. Atrial fibrillation: Paroxysmal. Continue with chronic Coumadin therapy. Maintain INR between 2-3. Diabetes: Recommend good control of blood sugar. However should avoid any hypoglycemia and hyperglycemia. Patient being expertly managed by primary care M.D/hospitalist Obesity: Discussed adverse effect of overweight/obesity on cardiovascular event rate, sleep apnea, diabetes and hypertension et cetera. Patient has been recommended weight loss. Sleep apnea syndrome: Patient claims he does not have a CPAP machine. Discussed that he might consider losing a lot of weight and get on CPAP as this is likely to help prevent future cardiovascular event risk. HTN: Blood pressure goal in this patient is 135/85 or less. This was discussed with the patient. Currently blood pressure under reasonable control. Better medication for this patient are EZEKIEL inhibitor/ARB/beta irish etc. discussed side effects of uncontrolled hypertension and also severe hypotension. Chronic kidney disease: Monitor renal functions closely. This is a adverse prognostic factors. Hypothyroidism: TSH level been high. Have added Synthroid. Have increased dose to 0.05 mg p.o. daily. - Time Time with patient: Greater than 35 minutes - CODE STATUS was discussed, patient remains full code. Surrogate decision-maker patient spouse. Multiple medical problems were addressed. More than 50% of the time spent coordinating care, discussing management plans with involved caregivers. Management plans discussed with involved personnels. Medical decision making was of moderate to high complexity, patient's has multiple comorbidities. Medications reviewed and adjusted accordingly: Yes
[2017-11-18] MEDS ORDERED: LEVOTHYROXINE SODIUM 0.05 MG TABLET PO ONE (11:45)
[2017-11-18] MEDS ORDERED: LEVOTHYROXINE SODIUM 0.025 MG TABLET PO ONE (12:00)
[2017-11-18] MEDS ORDERED: RANOLAZINE 500 MG TAB.SR.12H PO ONE (12:30)
--- NOTE | 2017-11-18 18:35 | EKG REPORT ---
SEVERITY:- ABNORMAL ECG - SINUS RHYTHM RIGHT BUNDLE BRANCH BLOCK : Confirmed by: Marisa Perez 18-Nov-2017 18:35:04
--- NOTE | 2017-11-18 21:12 | PDOC PROGRESS REPORT ---
Subjective Progress Note for:: 11/18/17 Subjective:: Patient feels well today. He is chest pain-free. No shortness of breath. No fever chills cough or sputum production. No palpitations. Nausea vomiting. Eating and drinking well. Review of systems performed and is negative. I have reviewed his labs and pertinent diagnostics today. Reason For Visit: HYPOTENSION Physical Exam Vital Signs: Temp Pulse Resp BP Pulse Ox 97.8 F 72 20 115/79 98 11/18/17 19:45 11/18/17 19:45 11/18/17 19:45 11/18/17 19:45 11/18/17 19:45 Intake & Output 11/17/17 11/18/17 11/19/17 06:59 06:59 06:59 Intake Total 440 1080 1150 Output Total 700 0 Balance -260 1080 1150 Weight 120.2 kg 117.9 kg General appearance: PRESENT: no acute distress, cooperative Head exam: PRESENT: atraumatic, normocephalic Eye exam: PRESENT: conjunctiva pink, EOMI Mouth exam: PRESENT: moist, tongue midline Respiratory exam: PRESENT: clear to auscultation henrry. ABSENT: rales, rhonchi, wheezes Cardiovascular exam: PRESENT: RRR Pulses: PRESENT: normal radial pulses GI/Abdominal exam: PRESENT: normal bowel sounds, soft. ABSENT: distended, guarding, tenderness Rectal exam: PRESENT: deferred Extremities exam: ABSENT: pedal edema Musculoskeletal exam: PRESENT: normal inspection Neurological exam: PRESENT: alert, awake, oriented to person, oriented to place , oriented to situation, CN II-XII grossly intact Psychiatric exam: PRESENT: appropriate affect. ABSENT: anxious Skin exam: PRESENT: dry, intact, warm Results Laboratory Results: 11/17/17 03:40 11/18/17 04:25 11/18/17 04:25 Sodium 139.6 Potassium 4.0 Chloride 112 H Carbon Dioxide 16 L Anion Gap 12 BUN 29 H Creatinine 1.73 H Est GFR ( Amer) 50 L Est GFR (Non-Af Amer) 41 L Glucose 102 Calcium 8.9 Magnesium 2.1 Total Bilirubin 0.4 AST 90 H ALT 161 H Alkaline Phosphatase 118 Total Protein 6.1 L Albumin 3.1 L 11/17/17 11/17/17 10:59 20:07 Troponin I < 0.012 < 0.012 Impressions: Chest X-Ray 11/15/17 19:43 IMPRESSION: NO ACUTE RADIOGRAPHIC FINDING IN THE CHEST. Abdomen/Pelvis CT 11/15/17 23:10 IMPRESSION: No acute findings. Chest CT 11/15/17 23:10 IMPRESSION: No acute findings. Assessment & Plan - Diagnosis (1) Acute on chronic renal failure Is this a current diagnosis for this admission?: Yes Plan: Renal function improving with hydration and episcopal of heart rate and blood pressure. We will continue to monitor as indicated. (2) Bradycardia Is this a current diagnosis for this admission?: Yes Plan: Patient's beta-irish was held and heart rate has come up. I have restarted his carvedilol 3.125 mg p.o. twice daily. Of note he takes 25 mg p.o. twice daily at home. Clinical Sales Consultant is consulting and has mentioned the idea of sick sinus syndrome but this has yet to be determined. (3) Chest pain Qualifiers: Chest pain type: unspecified Qualified Code(s): R07.9 - Chest pain, unspecified Is this a current diagnosis for this admission?: Yes Plan: Resolved from yesterday. Patient has evidence on EKG and imaging of coronary disease. Also he has diabetes and hypertension. Dr. Perez is following and will order stress test prior to discharge. (4) Congestive heart failure (CHF) Qualifiers: Heart failure type: unspecified Heart failure chronicity: acute on chronic Qualified Code(s): I50.9 - Heart failure, unspecified Plan: Compensated grade 2 diastolic dysfunction. Lasix has been restarted. (5) Elevated LFTs Is this a current diagnosis for this admission?: Yes Plan: Improved somewhat today. Patient is obese and possibly has fatty liver. This will need to be followed as an outpatient. (6) Hypotension Qualifiers: Hypotension type: unspecified hypotension type Qualified Code(s): I95.9 - Hypotension, unspecified Is this a current diagnosis for this admission?: Yes Plan: Improving. Patient told me today that the only medication change that was made prior to his admission for hypotension and bradycardia was that his lisinopril was changed from 20 mg p.o. twice daily to 40 mg daily. Blood pressure has been able to tolerate the following : low-dose carvedilol restarted. Lasix restarted. Lisinopril restarted. (7) Atrial fibrillation Qualifiers: Atrial fibrillation type: paroxysmal Qualified Code(s): I48.0 - Paroxysmal atrial fibrillation Is this a current diagnosis for this admission?: Yes Plan: Paroxysmal. Patient is anticoagulated with warfarin 4 mg p.o. nightly. Error in yesterday's note in that patient has not been on Lovenox. Will continue the heparin 5000 units subcu every 8 hours overnight as started by Dr. Pride and if the patient's INR is not therapeutic in the morning we may want to consider a short-term heparin drip. INR is 1.32, increasing appropriately, will check INR again in the morning. (8) Diabetes mellitus Qualifiers: Diabetes mellitus type: type 2 Diabetes mellitus complication status: with kidney complications Diabetes mellitus complication detail: with chronic kidney disease Diabetes mellitus jail insulin use: without jail use Chronic kidney disease stage: stage 3 (moderate) Qualified Code(s): E11.22 - Type 2 diabetes mellitus with diabetic chronic kidney disease; N18.3 - Chronic kidney disease, stage 3 (moderate); N18.3 - Chronic kidney disease, stage 3 (moderate) Plan: He also has diabetes related and possibly hypertension related CKD. Will continue current care for now. Weight loss counseling was extensive today. - Time Time Spent with patient: 35 or more minutes Medications reviewed and adjusted accordingly: Yes Within: within 48 hours - Inpatient Certification Medical Necessity: Significant Comorbidiites Make Outpatient Treatment Too Risky , Need Close Monitoring Due to Risk of Patient Decompensation, Need For Continuous Telemetry Monitoring, Risk of Complication if Not Cared For in Hospital
[2017-11-18] MEDS ORDERED: HEPARIN SOD (PORCINE) 5,000 UNIT/ML 1 ML SYRINGE SUBCUT ONE (21:30)
[2017-11-18] MEDS: WARFARIN SODIUM 4 MG TABLET PO SCH (21:46)
[2017-11-18] MEDS: RANOLAZINE 500 MG TAB.SR.12H PO SCH (21:47)
[2017-11-18] MEDS: ATORVASTATIN CALCIUM 40 MG TABLET PO SCH (21:48)
[2017-11-19] MEDS ORDERED: HEPARIN SOD (PORCINE) 5,000 UNIT/ML 1 ML SYRINGE SUBCUT SCH (06:00)
[2017-11-19] MEDS ORDERED: LEVOTHYROXINE SODIUM 0.05 MG TABLET PO SCH ×2 (06:00)
[2017-11-19 06:25] LABS: HEMATOCRIT 39.4 % (37.9-51.0); HEMOGLOBIN 13.4 g/dL (13.5-17.0); MEAN CORPUSCULAR HEMOGLOBIN 30.9 pg (27.0-33.4); MEAN CORPUSCULAR HGB CONC 33.9 g/dL (32.0-36.0); MEAN CORPUSCULAR VOLUME 91 fl (80-97); PLATELET COUNT 149 10^3/uL (150-450); RED BLOOD COUNT 4.32 10^6/uL (4.35-5.55); RED CELL DISTRIBUTION WIDTH 14.5 % (11.5-14.0); WHITE BLOOD COUNT 7.4 10^3/uL (4.0-10.5)
[2017-11-19 09:18] LABS: ANION GAP 9 (5-19); BLOOD UREA NITROGEN 26 mg/dL (7-20); CALCIUM 9.4 mg/dL (8.4-10.2); CARBON DIOXIDE 21 mmol/L (22-30); CHLORIDE 112 mmol/L (98-107); GLUCOSE 92 mg/dL (75-110); POTASSIUM 4.1 mmol/L (3.6-5.0); SODIUM 141.6 mmol/L (137-145)
[2017-11-19] MEDS: LISINOPRIL 10 MG TABLET PO SCH (10:59)
[2017-11-19] MEDS: CARVEDILOL 3.125 MG TABLET PO SCH (11:00)
[2017-11-19] MEDS: RANOLAZINE 500 MG TAB.SR.12H PO SCH (11:00)
[2017-11-19] MEDS: FUROSEMIDE 40 MG TABLET PO SCH (11:00)
[2017-11-19] MEDS ORDERED: AMINOPHYLLINE INJ/PF 250 MG/10 ML SDV IV ONE (12:00)
[2017-11-19] MEDS ORDERED: REGADENOSON INJ 0.4 MG/5 ML DISP.SYRIN IV ONE (12:00)
--- NOTE | 2017-11-19 12:51 | DRAGON STRESS TEST REPORT ---
INTRAVENOUS LEXISCAN CARDIOLITE STRESS TEST USING SINGLE PHOTON EMMISION COMPUTERIZED TOMOGRAPHIC. DATE OF PROCEDURE: November 19, 2017, INDICATION : Coronary artery disease CARDIAC RISK FACTORS: Diabetes, hypertension, dyslipidemia. RESTING EKG: Sinus rhythm with right bundle branch block pattern. STRESS EKG: No significant changes noted with LexiScan bolus REASON FOR TERMINATION: Protocol. PROCEDURE REPORT: Baseline heart rate 69 beats per minute with blood pressure of 119/73. Patient had no significant complaints. Heart rate at 2 minutes post bolus 88 with a blood pressure of 105/59. 3 minutes post bolus heart rate 78 with blood pressure of 107/59. No significant EKG changes were noted. Patient had no significant complaints during the procedure or postprocedure. Patient injected with Aminophyllin 75 mg at 3 minutes or later after Lexiscan bolus. CONCLUSIONS: Normal EKG and hemodynamic response to IV LexiScan. NUCLEAR DATA: At rest the patient was given 15.22 millicuries of technetium 99 sestamibi injected intravenously. As per protocol rest gated SPECT images were obtained. On day of stress test, the patient was given intravenous LexiScan at a dose of 0.4 mg in 5 mL intravenously, followed by flush with normal saline. Subsequently the stress dose of 44.4 millicuries of technetium 99 sestamibi was injected intravenously. As per protocol stress gated images were obtained. NUCLEAR INTERPRETATION: Both raw and processed data were used for interpretation. Visual, qualitative, computer-generated quantitative data was used. There was good myocardial uptake of technetium compound. Motion artifact and soft tissue attenuations were noted. Increased visceral uptake was noted. Predominantly a severe fixed defect noted involving the inferolateral wall of the left ventricle. There is minimal surrounding transient perfusion defect noted which is felt to be not significant. EKG gated imaging showed LV EF at 35 %, rest and stress gated EF similar visually, with inferolateral akinesia. T. I D. ratio was 1.12. Lung heart ratio noted to be within normal limits 0.39. No significant extracardiac and abnormal radiotracer activities were noted. RV free wall uptake was noted to be borderline increased. IMPRESSION: Also refer to comments under nuclear interpretation. Also test results needs to be interpreted in the context of pretest probability. 1. Predominantly a severe fixed defect noted involving the inferolateral wall of the left ventricle, this is indicative of a scar in the inferolateral wall of the left ventricle. There is minimal surrounding transient perfusion defect noted which is felt to be not significant. May consider viability determination if clinically indicated. 2. Borderline increased RV uptake noted indicative of probable RVH. 3. EKG gated imaging shows left ventricular ejection fraction of approx. 35 %, with inferolateral akinesia. 4. Clinical correlation requested as occasionally single vessel disease or balanced ischemia could be missed. In approximately 10% of the cases Lexiscan may not cause adequate vasodilatory stress. RECOMMENDATIONS: Aggressive risk factor modification and medical management. Further evaluation may be needed if continued symptoms or other high risk indicators are noted on clinical evaluation. Close cardiology follow-up is also recommended. Clinical correlation with echocardiogram derived ejection fraction. Inability to exercise by itself can lead to increased cardiovascular event risks. Consider cardiology consultation and or follow-up if clinically indicated. I am available for cardiology evaluation and consultation if requested by the cloth sponger, unless patient already has a football pad repairer. [facility]
[2017-11-19 14:17] VITALS: BP 110/74
--- NOTE | 2017-11-19 17:37 | PDOC DISCHARGE SUMMARY ---
General - Admit/Disc Date/PCP Admission Date/Primary Care Provider: 11/16/17 02:17 PAM MARIN PA-C Discharge Date: 11/19/17 - Discharge Diagnosis (1) Acute on chronic renal failure Is this a current diagnosis for this admission?: Yes (2) Atrial fibrillation Is this a current diagnosis for this admission?: Yes (3) Bradycardia Is this a current diagnosis for this admission?: Yes (4) Chest pain Is this a current diagnosis for this admission?: Yes (5) Congestive heart failure (CHF) Is this a current diagnosis for this admission?: Yes (6) Diabetes mellitus Is this a current diagnosis for this admission?: Yes (7) Elevated LFTs Is this a current diagnosis for this admission?: Yes (8) Hypotension Is this a current diagnosis for this admission?: Yes - Additional Information Resuscitation Status: Full Code Discharge Diet: Cardiac, Diabetic Discharge Activity: Activity As Tolerated, Slowly Increase Activity, Walk Frequently, Weigh Daily Prescriptions: Carvedilol [Coreg 3.125 mg Tablet] 3.125 mg PO Q12 #60 tablet Levothyroxine Sodium [Synthroid 0.05 mg Tablet] 0.05 mg PO Q6AM #30 tablet Ranolazine [Ranexa 500 mg Tab.sr] 500 mg PO Q12 #60 tab.sr.12h Home Medications: Furosemide [Lasix 40 mg Tablet] 40 mg PO DAILY 11/16/17 Lisinopril [Prinivil 40 mg Tablet] 40 mg PO DAILY 11/16/17 Metformin HCl [Glucophage 500 mg Tablet] 500 mg PO BIDACBS 11/16/17 Potassium Chloride [K-Tab ER] 20 meq PO DAILY 11/16/17 Pravastatin Sodium [Pravachol] 20 mg PO QHS 11/16/17 Warfarin Sodium [Coumadin 4 mg Tablet] 4 mg PO QHS 11/16/17 Carvedilol [Coreg 3.125 mg Tablet] 3.125 mg PO Q12 #60 tablet 11/19/17 Levothyroxine Sodium [Synthroid 0.05 mg Tablet] 0.05 mg PO Q6AM #30 tablet 11/19 Ranolazine [Ranexa 500 mg Tab.sr] 500 mg PO Q12 #60 tab.sr.12h 11/19/17 Warfarin Sodium [Coumadin 4 mg Tablet] 4 mg PO QHS #0 tablet 11/19/17 History of Present Illness History of Present Illness: Per H&P by Dr. Pride: JOON JANG is a 57 year old male with a past medical history of diabetes, hypertension, atrial fibrillation on Coumadin, congestive heart failure and stage III chronic kidney disease. He presents after 2 days of fatigue, orthostasis and an episode of chest tightness not associated with shortness of breath, nausea vomiting or diaphoresis which prompted evaluation in the emergency room. He is found to have bradycardia, hypotension and elevated LFTs and otherwise unremarkable workup. Patient denies recent change in medications, diet or lifestyle and otherwise feels well. He receives 1 L of normal saline placed on Flakito-Synephrine and referred to the hospitalist for admission. Patient's blood pressure medications include lisinopril, Coreg and amiodarone. Hospital Course Hospital Course: The patient was admitted to the ICU on Flakito-Synephrine for blood pressure support secondary to bradycardia with orthostasis chest pain. His amiodarone was discontinued and his beta-erica briefly held. Has improved, the carvedilol was restarted at low-dose 3.125 mg twice daily. His blood pressure improved and he was successfully weaned off of pressors. He was subsequently downgraded to the [facility]. Cardiology was consulted. Echocardiogram revealed LVEF of 50% with moderate diastolic dysfunction. The patient underwent stress testing which did straight a normal hemodynamic response to stress. The patient did not further episodes of chest pain. The patient's live and kidney function improved with optimization of blood pressure. At time of discharge, the patient is normotensive, maintaining her heart rate 60 -80, and chest pain free. He has been ambulatory on room air without dyspnea. He is discharged to home with prescriptions for carvedilol, levothyroxine, ranexa, and warfarin. 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 Physical Exam Vital Signs: Temp Pulse Resp BP Pulse Ox 97.5 F 81 16 110/74 100 11/19/17 14:14 11/19/17 14:14 11/19/17 14:14 11/19/17 14:14 11/19/17 14:14 Intake & Output 11/18/17 11/19/17 11/20/17 06:59 06:59 06:59 Intake Total 1080 1540 200 Output Total 0 Balance 1080 1540 200 Weight 117.9 kg 117 kg General appearance: PRESENT: no acute distress, cooperative, obese, well- developed, well-nourished Head exam: PRESENT: atraumatic, normocephalic Eye exam: PRESENT: conjunctiva pink, EOMI, PERRLA. ABSENT: scleral icterus Ear exam: PRESENT: normal external ear exam Mouth exam: PRESENT: moist, tongue midline Neck exam: ABSENT: carotid bruit, JVD, lymphadenopathy, thyromegaly Respiratory exam: PRESENT: clear to auscultation henrry, symmetrical, unlabored, other - Room air. ABSENT: rales, rhonchi, wheezes Cardiovascular exam: PRESENT: bradycardia, irregular rhythm, +S1, +S2. ABSENT: diastolic murmur, rubs, systolic murmur Pulses: PRESENT: normal dorsalis pedis pul Vascular exam: PRESENT: normal capillary refill GI/Abdominal exam: PRESENT: normal bowel sounds, soft. ABSENT: distended, guarding, mass, organolmegaly, rebound, tenderness Rectal exam: PRESENT: deferred Extremities exam: PRESENT: full ROM. ABSENT: calf tenderness, clubbing, pedal edema Neurological exam: PRESENT: alert, awake, oriented to person, oriented to place , oriented to time, oriented to situation, CN II-XII grossly intact. ABSENT: motor sensory deficit Psychiatric exam: PRESENT: appropriate affect, normal mood. ABSENT: homicidal ideation, suicidal ideation Skin exam: PRESENT: dry, intact, warm. ABSENT: cyanosis, rash Results Laboratory Results: 11/19/17 06:03 11/19/17 08:34 11/19/17 11/19/17 06:03 08:34 WBC 7.4 RBC 4.32 L Hgb 13.4 L Hct 39.4 MCV 91 MCH 30.9 MCHC 33.9 RDW 14.5 H Plt Count 149 L Sodium 141.6 Potassium 4.1 Chloride 112 H Carbon Dioxide 21 L Anion Gap 9 BUN 26 H Creatinine 1.68 H Est GFR ( Amer) 51 L Est GFR (Non-Af Amer) 42 L Glucose 92 Calcium 9.4 11/17/17 11/17/17 10:59 20:07 Troponin I < 0.012 < 0.012 Impressions: Chest X-Ray 11/15/17 19:43 IMPRESSION: NO ACUTE RADIOGRAPHIC FINDING IN THE CHEST. Abdomen/Pelvis CT 11/15/17 23:10 IMPRESSION: No acute findings. Chest CT 11/15/17 23:10 IMPRESSION: No acute findings. Qualifiers - * PATEINT BEING DISCHARGED WITH ANY OF THE FOLLOWING DIAGNOSIS?: Heart Failure HF Pt being discharged on ACEI for LVEF less than 40%?: No Reason(s) for not prescribing ACEI:: Medical Contraindication HF Pt being discharged on ARBS for LVEF less than 40%?: No Reason(s) for not prescribing ARBS:: Medical Contraindication HF Pt with Afib discharged with Warfarin?: Yes HF Pt discharged on evidence-based Beta Erica:: Yes
--- NOTE | 2017-11-19 19:46 | PDOC PROGRESS REPORT ---
Subjective Progress Note for:: 11/19/17 Subjective:: Nuclear stress test procedure was explained to the patient in detail. Risks benefits were discussed and informed consent was obtained. Alternatives were discussed. Patient informed that based on risk factors, physical exam, lab data findings and symptoms there is at least intermediate probability of underlying CAD. Nuclear stress test procedure was therefore scheduled. Patient seems to be doing better with gradual improvement. Pt is denying any chest arm or neck discomfort. Patient denying any PND, orthopnea. Patient denied any sustained palpitations, dizziness, syncope, near syncope. Patient denying any fever chills. Patient denying any other significant discomfort. Patient is maintaining sinus rhythm. Multiple twelve-lead EKG is reviewed. There were showing some secondary ST-T wave changes. Cardiac enzymes 2 negative. Patient claims he did not have any ischemia workup. Review of systems: Rest review of systems negative. Medications: Medications have been reviewed. Reason For Visit: HYPOTENSION Physical Exam Vital Signs: Temp Pulse Resp BP Pulse Ox 97.5 F 81 16 110/74 100 11/19/17 14:14 11/19/17 14:14 11/19/17 14:14 11/19/17 14:14 11/19/17 14:14 Intake & Output 11/18/17 11/19/17 11/20/17 06:59 06:59 06:59 Intake Total 1080 1540 200 Output Total 0 Balance 1080 1540 200 Weight 117.9 kg 117 kg Exam: GENERAL: well-nourished and in no acute distress. Alert and oriented x3 HEAD: Atraumatic, normocephalic. EYES: Pupils equal round and reactive to light, extraocular movements intact, sclera anicteric, conjunctiva are normal. ENT: TMs normal, nares patent, oropharynx clear without exudates. Moist mucous membranes. No oral ulcerations or bleeding gums noted NECK: supple without lymphadenopathy. Trachea is central. No cervical or axillary lymphadenopathy noted. Carotids are 2+, JVD WNL LUNGS: Respiration seems nonlabored, no significant accessory muscle action noted. Breath sounds clear to auscultation bilaterally and equal noted. No wheezes rales or rhonchi noted. No significant dullness noted on percussion. CHEST: Palpation of the chest wall shows no significant chest wall tenderness. No other significant abnormalities noted. HEART: Wesley CARDIAC RN, No PSH, 1/6 TOD aortic area, 1/6 fernandez systolic murmur mitral area, no rubs, no gallops. ABDOMEN: Soft, no significant tenderness appreciated, normoactive bowel sounds. No guarding, no rebound. No rigidity noted . No masses appreciated. EXTREMITIES: Pedal pulses are 1-2+, no calf tenderness noted. No clubbing or cyanosis.trace to 1+ pedal edema noted NEUROLOGICAL: Focused neurological exam showed no significant neurologic deficit. Normal speech, no focal weakness appreciated. PSYCH: Normal mood, normal affect. Judgment and insight within normal limits. SKIN: No significant ecchymosis, rash, ulcerations or signs of pruritus noted. MUSCULOSKELETAL EXAM: No significant joint swelling noted. Results Laboratory Results: 11/19/17 06:03 11/19/17 08:34 11/19/17 11/19/17 06:03 08:34 WBC 7.4 RBC 4.32 L Hgb 13.4 L Hct 39.4 MCV 91 MCH 30.9 MCHC 33.9 RDW 14.5 H Plt Count 149 L Sodium 141.6 Potassium 4.1 Chloride 112 H Carbon Dioxide 21 L Anion Gap 9 BUN 26 H Creatinine 1.68 H Est GFR ( Amer) 51 L Est GFR (Non-Af Amer) 42 L Glucose 92 Calcium 9.4 11/17/17 11/17/17 10:59 20:07 Troponin I < 0.012 < 0.012 EKG Comments: Telemetry strip shows sinus rhythm without any sustained tacky or bradycardia arrhythmias. Impressions: Chest X-Ray 11/15/17 19:43 IMPRESSION: NO ACUTE RADIOGRAPHIC FINDING IN THE CHEST. Abdomen/Pelvis CT 11/15/17 23:10 IMPRESSION: No acute findings. Chest CT 11/15/17 23:10 IMPRESSION: No acute findings. Assessment & Plan - Diagnosis (1) Chest pain Qualifiers: Chest pain type: unspecified Qualified Code(s): R07.9 - Chest pain, unspecified Is this a current diagnosis for this admission?: Yes (2) Abnormal EKG Is this a current diagnosis for this admission?: Yes (3) Bradycardia Is this a current diagnosis for this admission?: Yes (4) Hypotension Qualifiers: Hypotension type: unspecified hypotension type Qualified Code(s): I95.9 - Hypotension, unspecified Is this a current diagnosis for this admission?: Yes (5) Atrial fibrillation Qualifiers: Atrial fibrillation type: paroxysmal Qualified Code(s): I48.0 - Paroxysmal atrial fibrillation Is this a current diagnosis for this admission?: Yes (6) Diabetes mellitus Qualifiers: Diabetes mellitus type: type 2 Diabetes mellitus complication status: with kidney complications Diabetes mellitus complication detail: with chronic kidney disease 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 use: without nursing home use Chronic kidney disease stage: stage 3 (moderate) Qualified Code(s): E11.22 - Type 2 diabetes mellitus with diabetic chronic kidney disease; N18.3 - Chronic kidney disease, stage 3 (moderate); N18.3 - Chronic kidney disease, stage 3 (moderate) (7) Morbid obesity with BMI of 40.0-44.9, adult Is this a current diagnosis for this admission?: Yes (8) Obstructive sleep apnea Is this a current diagnosis for this admission?: Yes (9) CKD (chronic kidney disease) Qualifiers: Chronic kidney disease stage: stage 3 (moderate) Qualified Code(s): N18.3 - Chronic kidney disease, stage 3 (moderate) Is this a current diagnosis for this admission?: Yes (10) Hypertension Qualifiers: Hypertension type: essential hypertension Qualified Code(s): I10 - Essential (primary) hypertension Is this a current diagnosis for this admission?: Yes - Notes Notes: Nuclear stress test shows predominantly a severe fixed defect in the inferolateral wall of the left ventricle with minimal surrounding area. These results were discussed. Patient questions was answered. At this point based on nuclear stress test results, patient was advised medical management with very close cardiology follow-up. It may be worthwhile to consider viability study and heart catheterization should patient continue to have chest pain. Patient however follows up with the [facility] and was asked to seek a cardiology consultation from there. He was offered to follow-up in my office. Chest pain: Patient CTA reviewed. He does have significant coronary calcification therefore has underlying CAD. At this point treat with aspirin, statins. Once heart rate improved will consider beta-irish therapy. Recommend DVT prophylaxis, cardiac enzymes. Will add Ranexa. Stress test results discussed. Currently chest pain-free. Patient being advised medical management. Abnormal EKG: Concerning for underlying CAD. Patient to be scheduled for a nuclear stress test. Bradycardia: Intermittent. Possible underlying sick sinus syndrome. Discussed that sleep apnea can cause bradycardia. Patient currently being followed at [facility]. Patient started on Synthroid and his heart rate has improved. Hypotension: Currently resolved. Was most likely related to medications and hypovolemia. Currently blood pressure is normalizing and has been stable for last several days. Atrial fibrillation: Paroxysmal. Continue with chronic Coumadin therapy. Maintain INR between 2-3. Diabetes: Recommend good control of blood sugar. However should avoid any hypoglycemia and hyperglycemia. Patient being expertly managed by primary care M.D/hospitalist Obesity: Discussed adverse effect of overweight/obesity on cardiovascular event rate, sleep apnea, diabetes and hypertension et cetera. Patient has been recommended weight loss. Sleep apnea syndrome: Patient claims he does not have a CPAP machine. Discussed that he might consider losing a lot of weight and get on CPAP as this is likely to help prevent future cardiovascular event risk. HTN: Blood pressure goal in this patient is 135/85 or less. This was discussed with the patient. Currently blood pressure under reasonable control. Better medication for this patient are EZEKIEL inhibitor/ARB/beta irish etc. discussed side effects of uncontrolled hypertension and also severe hypotension. Chronic kidney disease: Monitor renal functions closely. This is a adverse prognostic factors. Hypothyroidism: TSH level been high. Have added Synthroid. Have increased dose to 0.05 mg p.o. daily. Patient will benefit from continued monitoring as an outpatient. - Time Time with patient: Greater than 35 minutes - CODE STATUS was discussed, patient remains full code. Surrogate decision-maker patient's . Multiple medical problems were addressed. More than 50% of the time spent coordinating care, discussing management plans with involved caregivers. Management plans discussed with involved personnels. Medical decision making was of moderate to high complexity, patient's has multiple comorbidities. Medications reviewed and adjusted accordingly: Yes
[2017-11-20 07:04] LABS: AMIODARON SERUM 2.4 ug/mL (1.0-2.5); NORAMIODARONE SERUM 1.5 ug/mL (1.0-2.5)
== END 2017-11-19 14:40 | disposition home or self-care (01) | DRG 312 ==
LOC: ER 18:20 → EH 11-16 02:17 → ICU 11-16 05:43 → 3N 11-18 02:36
PROVIDERS: ADMIT Internal Medicine; ATTEND Internal Medicine
DX: I95.2 Hypotension due to drugs (principal); N17.9 Acute kidney failure, unspecified; I13.0 Hypertensive heart and chronic kidney disease with heart failure and stage 1 through stage 4 chronic kidney disease, or unspecified chronic kidney disease; Z68.41 Body mass index [BMI] 40.0-44.9, adult; T46.2X5A Adverse effect of other antidysrhythmic drugs, initial encounter; I50.9 Heart failure, unspecified; E11.22 Type 2 diabetes mellitus with diabetic chronic kidney disease; N18.3 Chronic kidney disease, stage 3 (moderate); I48.91 Unspecified atrial fibrillation; E66.01 Morbid (severe) obesity due to excess calories; G47.33 Obstructive sleep apnea (adult) (pediatric); I25.10 Atherosclerotic heart disease of native coronary artery without angina pectoris; E78.5 Hyperlipidemia, unspecified; R00.1 Bradycardia, unspecified; Y92.009 Unspecified place in unspecified non-institutional (private) residence as the place of occurrence of the external cause; Z79.01 Long term (current) use of anticoagulants; Z79.899 Other long term (current) drug therapy
CPT/HCPCS: 36415; 71045; 71250; 74176; 78452; 80048; 80053; 80076; 80307; 82542; 82550; 82553; 82962; 83735; 83880; 84443; 84484; 85025; 85027; 85379; 85610; 85730; 93005; 93010; 93017; 93306; 94660; 96361; 96365; 96366; 96375; 99291; A9500; J0280; J0610; J1610; J1644; J2310; J2785; J3490; J7030; J7060; J7620; Q9969

== ENCOUNTER → 2017-11-30 | Outpatient (CLI) | payer OTHER ==
--- NOTE | 2017-11-30 13:50 | RADIOLOGY REPORT (SQ) ---
EXAM DESCRIPTION: KNEE LEFT 2 VIEWS COMPLETED DATE/TIME: 11/30/2017 10:49 am REASON FOR STUDY: LEFT KNEE PAIN COMPARISON: None. NUMBER OF VIEWS: Two views TECHNIQUE: AP and lateral radiographic images acquired of the left knee. LIMITATIONS: None. FINDINGS: MINERALIZATION: Normal. BONES: No acute fracture or dislocation. No worrisome bone lesions. JOINT: Extensive degenerative changes are identified at the level of the patellofemoral compartment w ith patellar spurring. There is some mild osteophytic lipping at the level of the medial and lateral compartments. SOFT TISSUES: No soft tissue swelling. No radio-opaque foreign body. OTHER: No other significant finding. IMPRESSION: No acute fracture or dislocation. Degenerative changes as noted above. Other findings as noted above TECHNICAL DOCUMENTATION: JOB ID: [id number]- All Rights Reserved Reading location - IP/workstation name: [email or web address]
--- NOTE | 2017-11-30 14:54 | RADIOLOGY REPORT (SQ) ---
EXAM DESCRIPTION: ELBOW LEFT OVER 2 VIEWS COMPLETED DATE/TIME: 11/30/2017 10:49 am REASON FOR STUDY: LEFT ELBOW PAIN COMPARISON: None. NUMBER OF VIEWS: Four views. TECHNIQUE: AP, lateral, and both oblique radiographic images acquired of the left elbow. LIMITATIONS: None. FINDINGS: MINERALIZATION: Normal. BONES: No acute fracture or dislocation. Mild olecranon spurring is identified. JOINT: No effusion. SOFT TISSUES: No soft tissue swelling. No foreign body. OTHER: No other significant finding. IMPRESSION: Mild degenerative changes with olecranon spurring. No other significant findings. TECHNICAL DOCUMENTATION: JOB ID: [id number] [employer] All Rights Reserved Reading location - IP/workstation name: [email or web address]
== END ==
LOC: RAD 09:48
DX: G47.30 Sleep apnea, unspecified (principal); E11.9 Type 2 diabetes mellitus without complications; I50.9 Heart failure, unspecified; I10 Essential (primary) hypertension; N28.9 Disorder of kidney and ureter, unspecified; M25.562 Pain in left knee; M25.522 Pain in left elbow

== ENCOUNTER 2018-02-28 10:01 | Emergency (ER) | payer OTHER, MEDICAID ==
[2018-02-28] MEDS ORDERED: ACETAMINOPHEN 325 MG TABLET PO ONE (11:15)
[2018-02-28] MEDS ORDERED: DIPH/PERTUSS(ACELL)/TETANUS VAC/PF 0.5 ML SYR (>=10YO) IM ONE (11:15)
--- NOTE | 2018-02-28 11:19 | ER Document Report ---
HPI - HPI Patient complains to provider of: Knee, elbow pain Onset: Last week Onset/Duration: Persistent Quality of pain: Achy Pain Level: 3 Context: Patient states that he was walking down steps last week and lost his footing causing him to fall. Patient with abrasions that are healing to his face. Patient denies any headache pain or loss of consciousness. Patient complains of persistent left elbow and left knee pain. Associated Symptoms: Other - Left knee, left elbow Exacerbated by: Movement Relieved by: Denies Similar symptoms previously: No Recently seen / treated by doctor: No - ROS ROS below otherwise negative: Yes Systems Reviewed and Negative: Yes All other systems reviewed and negative - CONSTITUTIONAL Constitutional: DENIES: Fever - NEURO Neurology: DENIES: Headache, Weakness - CARDIOVASCULAR Cardiovascular: DENIES: Chest pain - RESPIRATORY Respiratory: DENIES: Trouble Breathing, Coughing - GASTROINTESTINAL Gastrointestinal: DENIES: Nausea, Patient vomiting - REPRODUCTIVE Reproductive: DENIES: : - MUSCULOSKELETAL Musculoskeletal: REPORTS: Extremity pain - left elbow, left knee, Swelling - Left elbow. DENIES: Back Pain, Neck Pain - DERM Skin Color: Normal Skin Problems: None Past Medical History - General Information source: Patient - Social History Smoking Status: Never Smoker Chew tobacco use (# tins/day): No Frequency of alcohol use: None Drug Abuse: None Lives with: Family Family History: COPD, DM, Hypertension Patient has suicidal ideation: No Patient has homicidal ideation: No - Past Medical History Cardiac Medical History: Reports: Hx Atrial Fibrillation, Hx Congestive Heart Failure, Hx Coronary Artery Disease, Hx Hypercholesterolemia, Hx Hypertension Pulmonary Medical History: Reports: Hx Sleep Apnea Endocrine Medical History: Reports: Hx Diabetes Mellitus Type 2 Renal/ Medical History: Denies: Hx Peritoneal Dialysis Musculoskeltal Medical History: Reports Hx Arthritis Psychiatric Medical History: Denies: Hx Depression Past Surgical History: Reports: Hx Appendectomy, Hx Orthopedic Surgery Vertical Provider Document - CONSTITUTIONAL Agree With Documented VS: Yes Exam Limitations: No Limitations General Appearance: WD/WN, No Apparent Distress - INFECTION CONTROL TRAVEL OUTSIDE OF THE [place] IN LAST 30 DAYS: No - HEENT HEENT: Normocephalic, PERRLA Notes: Healing abrasions to nose and chin area, no facial tenderness, no dental injury - NECK Neck: Normal Inspection, Supple - RESPIRATORY Respiratory: Breath Sounds Normal, No Respiratory Distress - CARDIOVASCULAR Cardiovascular: Regular Rate, Regular Rhythm, No Murmur Pulses: Normal: Radial, Dorsalis pedis - BACK Back: Normal Inspection. negative: CVA Tenderness-Right, CVA Tenderness-Left - MUSCULOSKELETAL/EXTREMETIES Musculoskeletal/Extremeties: MAEW, FROM, Tender - Left knee joint generalized tenderness, normal color and temperature overlying joint. Left elbow tenderness over olecranon process, minimal swelling over olecranon process, normal skin color and temperature overlying left elbow. - NEURO Level of Consciousness: Awake, Alert, Appropriate Motor/Sensory: No Motor Deficit - DERM Integumentary: Warm, Dry, No Rash Course - Re-evaluation Re-evalutation: 02/28/18 X-ray reviewed, no concern for any acute fracture, patient without fever, normal skin color and temperature overlying joint, no concern for septic arthritis. Reviewed patient's INR with him. Patient states that he did have an INR test early this morning at his primary doctor's office and the results were reviewed with his primary doctor today. Patient encouraged to follow-up with his orthopedic surgeon for further evaluation. - Vital Signs Vital signs: Temp Pulse Resp BP Pulse Ox 98.2 F 90 18 125/85 100 02/28/18 10:06 02/28/18 10:06 02/28/18 10:06 02/28/18 10:06 02/28/18 10:06 - Diagnostic Test Radiology reviewed: Image reviewed, Reports reviewed Procedures - Immobilization Left Elbow Pre-Proc Neuro Vasc Exam: Normal Immobilizer type: Mario wrap Performed by: PCT Post-Proc Neuro Vasc Exam: Normal Alignment checked and good: Yes Left Knee Pre-Proc Neuro Vasc Exam: Normal Immobilizer type: Mario wrap Performed by: PCT Post-Proc Neuro Vasc Exam: Normal Alignment checked and good: Yes Discharge - Discharge Clinical Impression: Elbow pain, left, Subtherapeutic international normalized ratio (INR), Arthritis Left knee pain Qualifiers: Chronicity: unspecified Qualified Code(s): M25.562 - Pain in left knee Fall Qualifiers: Encounter type: initial encounter Qualified Code(s): W19.XXXA - Unspecified fall, initial encounter Condition: Stable Disposition: HOME, SELF-CARE Instructions: Abrasions of the Face ([facility]), Mario Wrap ([facility]), Arthritis ([facility]), Sprained Knee ([facility]) Additional Instructions: Return immediately for any new or worsening symptoms Followup with your primary care provider, call tomorrow to make a followup appointment Use your cane to assist with ambulation Follow-up with your orthopedic surgeon for recheck, call today for a follow-up appointment Your INR was 1.23. Call your primary doctor and let them know this value, they may need to adjust your Coumadin dose. Prescriptions: Hydrocodone/Acetaminophen [[place] 5-325 Tablet] 1 each PO Q6 PRN #12 tablet PRN Reason: Referrals: ALANNA GAINES MD [ACTIVE STAFF] - Follow up in 3-5 days [facility] [Provider Group] - Follow up tomorrow
[2018-02-28 12:39] LABS: INTERNATIONAL RATION (INR) 1.23; PROTHROMBIN TIME 16.1 SEC (11.4-15.4)
--- NOTE | 2018-02-28 12:55 | RADIOLOGY REPORT (SQ) ---
EXAM DESCRIPTION: ELBOW LEFT OVER 2 VIEWS COMPLETED DATE/TIME: 02/28/2018 12:15 pm REASON FOR STUDY: fall COMPARISON: Left elbow films 11/30/2017 NUMBER OF VIEWS: Four views. TECHNIQUE: AP, lateral, and both oblique radiographic images acquired of the left elbow. LIMITATIONS: None. FINDINGS: MINERALIZATION: Normal. BONES: No acute fracture or dislocation. No worrisome bone lesions. There is olecranon bony spurrin g, and bony spurring along the medial epicondyle, unchanged from prior study JOINT: No effusion. SOFT TISSUES: There is olecranon soft tissue swelling and stranding in the subcutaneous fat. No radi opaque foreign body. No soft tissue gas. OTHER: No other significant finding. IMPRESSION: Olecranon soft tissue swelling and subcutaneous fat stranding. No radiopaque foreign alida dy or soft tissue gas. No definite fracture of the olecranon bone spur. TECHNICAL DOCUMENTATION: JOB ID: [id number] [employer]- All Rights Reserved Reading location - IP/workstation name: [email or web address]
--- NOTE | 2018-02-28 12:58 | RADIOLOGY REPORT (SQ) ---
EXAM DESCRIPTION: KNEE LEFT 4 VIEW COMPLETED DATE/TIME: 02/28/2018 12:15 pm REASON FOR STUDY: fall pain, no open or penetrating wound COMPARISON: Left knee films 11/30/2017, 08/18/2017 NUMBER OF VIEWS: Four views. TECHNIQUE: AP, lateral, and both oblique radiographic images acquired of the left knee. LIMITATIONS: None. FINDINGS: MINERALIZATION: Normal. BONES: No acute fracture or dislocation. No worrisome bone lesions. JOINT: Small suprapatellar knee joint effusion. Advanced patellofemoral compartment osteoarthritis w ith high-grade joint space narrowing and bony spurring. Mild medial and lateral compartment joint sp pedro narrowing and bony spurring. Benign bony overgrowth at the anterior tibial tubercle and intra os seous ligament between the tibia and fibula, unchanged. SOFT TISSUES: No soft tissue swelling. No radio-opaque foreign body. OTHER: No other significant finding. IMPRESSION: No acute changes TECHNICAL DOCUMENTATION: JOB ID: [id number] [employer] All Rights Reserved Reading location - IP/workstation name: [facility]
[2018-02-28 13:56] VITALS: BP 118/92
== END 2018-02-28 13:56 | disposition home or self-care (01) ==
LOC: ER 10:01
DX: M25.522 Pain in left elbow (principal); M79.89 Other specified soft tissue disorders; M25.562 Pain in left knee; S00.31XA Abrasion of nose, initial encounter; S00.81XA Abrasion of other part of head, initial encounter; W10.9XXA Fall (on) (from) unspecified stairs and steps, initial encounter; M19.90 Unspecified osteoarthritis, unspecified site; I25.10 Atherosclerotic heart disease of native coronary artery without angina pectoris; I10 Essential (primary) hypertension; E11.9 Type 2 diabetes mellitus without complications
CPT/HCPCS: 36415; 85610; 90471; 90715; 99284

== ENCOUNTER 2018-04-16 01:15 | Emergency (ER) | payer OTHER, MEDICAID ==
[2018-04-16] MEDS ORDERED: ASPIRIN 81 MG TABLET, CHEWABLE PO ONE (01:44)
--- NOTE | 2018-04-16 01:46 | ER Document Report ---
ED General - General Chief Complaint: Chest Pain Stated Complaint: CHEST PAIN Time Seen by Provider: 04/16/18 01:35 Notes: Patient is a 57-year-old male who comes emergency department for chief complaint of chest pain intermittent for the past 3 days. He states that sometimes he gets a sore sensation that he can massage away but at other times he feels a tightness in his chest that takes a little while to go away. He denies current chest pain. He also states he has been getting headaches for the past couple days but he has also been sleeping very poorly. He states that if he lies flat he can barely breathe, this is worse over the past couple of days. Past medical history includes atrial fibrillation, CHF, DC, he is on warfarin, he states he has a apprentice painter hand at [facility] named Dr. Grey and he states that they were considering doing stents in his heart but his kidney functioning would not allow it over the past month. Former smoker, denies alcohol or recreational drugs. Patient also states that he was told to increase his Lasix from 40 mg once a day to 40 mg twice a day, he did this for the past week. TRAVEL OUTSIDE OF THE [place] IN LAST 30 DAYS: No - Related Data Allergies/Adverse Reactions: No Known Allergies Allergy (Verified 02/28/18 10:04) Past Medical History - General Information source: Patient - Social History Smoking Status: Former Smoker Frequency of alcohol use: None Drug Abuse: None Lives with: Family Family History: COPD, DM, Hypertension - Past Medical History Cardiac Medical History: Reports: Hx Atrial Fibrillation, Hx Congestive Heart Failure, Hx Coronary Artery Disease, Hx Hypercholesterolemia, Hx Hypertension Pulmonary Medical History: Reports: Hx Sleep Apnea Endocrine Medical History: Reports: Hx Diabetes Mellitus Type 2 Renal/ Medical History: Denies: Hx Peritoneal Dialysis Musculoskeletal Medical History: Reports Hx Arthritis Psychiatric Medical History: Denies: Hx Depression Past Surgical History: Reports: Hx Appendectomy, Hx Orthopedic Surgery Review of Systems - Review of Systems Constitutional: No symptoms reported EENT: No symptoms reported Cardiovascular: See HPI Respiratory: No symptoms reported Gastrointestinal: No symptoms reported Genitourinary: No symptoms reported Male Genitourinary: No symptoms reported Musculoskeletal: No symptoms reported Skin: No symptoms reported Hematologic/Lymphatic: No symptoms reported Neurological/Psychological: See HPI Physical Exam - Vital signs Vitals: Temp Pulse Resp BP Pulse Ox 98.6 F 73 16 132/88 H 94 07/17/18 01:29 04/16/18 01:29 04/16/18 01:29 04/16/18 01:29 04/16/18 01:29 - Notes Notes: GENERAL: Alert, interacts well. No acute distress. HEAD: Normocephalic, atraumatic. EYES: Pupils equal, round, and reactive to light. Extraocular movements intact. ENT: Oral mucosa moist, tongue midline. NECK: Full range of motion. Supple. Trachea midline. LUNGS: Clear to auscultation bilaterally, no wheezes, rales, or rhonchi. No respiratory distress. HEART: Regular rate and rhythm. No murmur ABDOMEN: Soft, non-tender. Non-distended. Bowel sounds present in all 4 quadrants. EXTREMITIES: Moves all 4 extremities spontaneously. No edema, normal radial and dorsalis pedis pulses bilaterally. No cyanosis. BACK: no cervical, thoracic, lumbar midline tenderness. No saddle anesthesia, normal distal neurovascular exam. NEUROLOGICAL: Alert and oriented x3. Normal speech. [cranial nerves II through XII grossly intact]. PSYCH: Normal affect, normal mood. SKIN: Warm, dry, normal turgor. No rashes or lesions noted. Course - Re-evaluation Re-evalutation: EKG shows sinus rhythm at a rate of 64, normal QTC and OR intervals, left axis deviation, flattened T waves anteriorly and laterally, no T-wave inversions or ST segment changes in consecutive leads. No significant change from prior. CBC unremarkable, chemistry unremarkable except for mildly elevated creatinine of 1.68, this is identical to prior. Initial troponin is normal. Chest x-ray is unremarkable. No rales on exam. No lower extremity edema. Patient complaining of orthopnea for the past 2 days but when I placed him in a flat position he did not have any signs of discomfort/distress. Heart score is 3 (risk factors, age). Discussed with Dr. Lucio. Because of patient reporting that he was going to get a heart catheterization but this was delayed because renal functioning, he recommends discussing with his apprentice painter hand for additional recommendation for treatment plan. Called [facility] include [facility] beds at the [facility], they report that the cardiologists are no longer available for consultation during the night, will not be available until 8 AM in the morning. Troponin cycled, discussed with patient, he is requesting to leave. He states he has no symptoms now, his symptoms of chest pain were not particularly different than he frequently has, he states he wants to go home and follow-up with his apprentice painter hand. He agrees to call them later this morning. Because of negative workup, no significant change in symptoms, and good follow-up, after discussion again with Dr. Lucio patient was discharged with return precautions. - Vital Signs Vital signs: Temp Pulse Resp BP Pulse Ox 98.6 F 73 16 124/94 H 97 04/16/18 01:29 04/16/18 01:29 04/16/18 06:01 04/16/18 06:01 04/16/18 06:01 - Laboratory Result Diagrams: 04/16/18 01:55 04/16/18 01:55 Laboratory results interpreted by me: 04/16/18 04/16/18 01:55 01:55 PT 25.9 H Sodium 146.7 H Chloride 113 H Creatinine 1.68 H Est GFR ( Amer) 51 L Est GFR (Non-Af Amer) 42 L Alkaline Phosphatase 133 H Discharge - Discharge Clinical Impression: Chest pain Qualifiers: Chest pain type: unspecified Qualified Code(s): R07.9 - Chest pain, unspecified Condition: Stable Disposition: HOME, SELF-CARE Additional Instructions: Your workup to this point is normal, however you need to call your apprentice painter hand this morning to establish very close follow-up. Your creatinine (kidney functioning test) today is 1.68. Your troponins were negative. Return if you worsen including returned or worsening pain, passing out, difficulty breathing, or any other concerning or worsening symptoms. Referrals: PAM MARIN PA-C [Primary Care Provider] - Follow up as needed
[2018-04-16 02:10] LABS: INTERNATIONAL RATION (INR) 2.25; PROTHROMBIN TIME 25.9 SEC (11.4-15.4)
[2018-04-16 02:16] LABS: ALANINE AMINOTRANSFERASE 38 U/L (21-72); ALBUMIN 3.9 g/dL (3.5-5.0); ALKALINE PHOSPHATASE 133 U/L (38-126); ANION GAP 12 (5-19); ASPARTATE AMINO TRANSFERASE 48 U/L (17-59); BILIRUBIN,DIRECT 0.3 mg/dL (0.0-0.4); BILIRUBIN,TOTAL 0.7 mg/dL (0.2-1.3); BLOOD UREA NITROGEN 19 mg/dL (7-20); CALCIUM 8.9 mg/dL (8.4-10.2); CARBON DIOXIDE 22 mmol/L (22-30); CHLORIDE 113 mmol/L (98-107); CREATINE KINASE 154 U/L (55-170); GLUCOSE 108 mg/dL (75-110); POTASSIUM 3.9 mmol/L (3.6-5.0); SODIUM 146.7 mmol/L (137-145)
[2018-04-16 02:21] LABS: ABSOLUTE EOSINOPHILS # (AUTO) 0.3 10^3/uL (0.0-0.6); ABSOLUTE LYMPHOCYTES (AUTO) 2.1 10^3/uL (0.5-4.7); ABSOLUTE MONOCYTES (AUTO) 0.7 10^3/uL (0.1-1.4); ABSOLUTE NEUT (AUTO) 5.1 10^3/uL (1.7-8.2); BASOPHILS % (AUTO) 0.5 % (0-2); EOSINOPHILS % (AUTO) 3.5 % (0-6); HEMATOCRIT 43.7 % (37.9-51.0); HEMOGLOBIN 14.6 g/dL (13.5-17.0); LYMPHOCYTES % (AUTO) 25.4 % (13-45); MEAN CORPUSCULAR HEMOGLOBIN 30.4 pg (27.0-33.4); MEAN CORPUSCULAR HGB CONC 33.4 g/dL (32.0-36.0); MEAN CORPUSCULAR VOLUME 91 fl (80-97); MONOCYTES % (AUTO) 8.2 % (3-13); PLATELET COUNT 170 10^3/uL (150-450); RED CELL DISTRIBUTION WIDTH 13.4 % (11.5-14.0); SEGMENTED NEUTROPHILS % (AUTO) 62.4 % (42-78); TOTAL CELLS COUNTED % (AUTO) 100 %; WHITE BLOOD COUNT 8.1 10^3/uL (4.0-10.5)
--- NOTE | 2018-04-16 02:25 | RADIOLOGY REPORT (SQ) ---
EXAM DESCRIPTION: XR CHEST 1 VIEW COMPLETED DATE/TME: 04/16/2018 01:44 CLINICAL HISTORY: 57 years, Male, chest pain, shortness of breath COMPARISON: 11/15/2017 NUMBER OF VIEWS: One TECHNIQUE: AP view of the chest LIMITATIONS: None. FINDINGS: The lungs are clear. The heart is normal in size. There is no pneumothorax or pleural effusion. There is no acute fracture IMPRESSION: No acute cardiopulmonary abnormality 2010 [employer]- All Rights Reserved
[2018-04-16 02:28] LABS: CREATINE KINASE MB 0.98 ng/mL (<4.55); TROPONIN I < 0.012 ng/mL
[2018-04-16] MEDS ORDERED: MORPHINE SULFATE 10 MG/ML INJ IV ONE (02:59)
[2018-04-16 06:15] VITALS: BP 124/94
--- NOTE | 2018-04-16 10:03 | EKG REPORT ---
SEVERITY:- ABNORMAL ECG - SINUS RHYTHM LVH WITH SECONDARY REPOLARIZATION ABNORMALITY : Confirmed by: Marisa Perez 16-Apr-2018 10:01:42
== END 2018-04-16 06:25 | disposition home or self-care (01) ==
LOC: ER 01:15
DX: R07.9 Chest pain, unspecified (principal); E11.9 Type 2 diabetes mellitus without complications; I50.9 Heart failure, unspecified; E78.00 Pure hypercholesterolemia, unspecified; I11.0 Hypertensive heart disease with heart failure; I48.91 Unspecified atrial fibrillation; Z87.891 Personal history of nicotine dependence
CPT/HCPCS: 93005; 99285; 96374; 36415; 82553; 82550; 85025; 85610; 80053; 84484; 83880; 71045; 93010; J2270

== ENCOUNTER 2018-04-27 09:59 | Emergency (ER) | payer MEDICAID, OTHER ==
[2018-04-27 10:10] VITALS: BP 124/93
--- NOTE | 2018-04-27 10:39 | ER Document Report ---
ED Medical Screen (RME) - General Chief Complaint: Foot Pain Stated Complaint: SWOLLEN FOOT Time Seen by Provider: 04/27/18 10:21 Mode of Arrival: Ambulatory Information source: Patient Notes: This is a 58-year-old man with a history of chronic kidney disease, hypertension , diabetes, CHF, atrial fibrillation (Coumadin), history of gout attack last year during which he had washout of the knee for possible septic arthritis. Ultimately, the patient improved with steroids for what was presumably felt to be gout. Patient presents with 3 days of right foot and ankle pain. He states he has had mild swelling. He denies any fever, chills, nausea, vomiting. He states it feels similar to the pain he was having in his knee and foot last year. TRAVEL OUTSIDE OF THE [place] IN LAST 30 DAYS: No - HPI Onset: Last week - Last 3 days Onset/Duration: Gradual Quality of pain: Dull Severity: Moderate Pain Level: 2 Associated Symptoms: denies: Chest pain, Fever, Nausea, Shortness of breath Exacerbated by: Movement Relieved by: Remaining still Similar symptoms previously: Yes Recently seen / treated by doctor: Yes - Related Data Smoking: Non-smoker Frequency of alcohol use: None Drug Abuse: None Allergies/Adverse Reactions: No Known Allergies Allergy (Verified 04/27/18 10:00) Past Medical History - General Information source: Patient - Social History Cigarette use (# per day): No Chew tobacco use (# tins/day): No Frequency of alcohol use: Rare Drug Abuse: None Lives with: Family Family history: None - Past Medical History Cardiac Medical History: Reports: Hx Atrial Fibrillation, Hx Congestive Heart Failure, Hx Coronary Artery Disease, Hx Hypercholesterolemia, Hx Hypertension Pulmonary Medical History: Reports: Hx Sleep Apnea Endocrine Medical History: Reports: Hx Diabetes Mellitus Type 2 Renal/ Medical History: Denies: Hx Peritoneal Dialysis Musculoskeltal Medical History: Reports Hx Arthritis Psychiatric Medical History: Denies: Hx Depression Past Surgical History: Reports: Hx Appendectomy, Hx Orthopedic Surgery - knee - Immunizations History of Influenza Vaccine for 07/2017 - 11/2017 Season: No Influenza Administration Date for 07/2017 - 11/2017 Season: 08/22/17 Review of Systems - Review of Systems Constitutional: denies: Chills, Fever EENT: No symptoms reported Cardiovascular: denies: Chest pain, Syncope Respiratory: denies: Cough, Short of breath Gastrointestinal: No symptoms reported Genitourinary: No symptoms reported Male Genitourinary: No symptoms reported Musculoskeletal: See HPI Skin: No symptoms reported Hematologic/Lymphatic: No symptoms reported Neurological/Psychological: No symptoms reported Physical Exam - Vital signs Vitals: Temp Pulse Resp BP Pulse Ox 98.2 F 98 18 124/93 H 96 04/27/18 10:06 04/27/18 10:04/27/18 10:04/27/18 10:04/27/18 10:06 Notes: Physical exam: GENERAL: 58-year-old man, alert and oriented 3, no acute distress HEAD: Atraumatic, normocephalic. EYES: Pupils equal round and reactive to light, extraocular movements intact, sclera anicteric, conjunctiva are normal. ENT: TMs normal, nares patent, oropharynx clear without exudates. Moist mucous membranes. NECK: Normal range of motion, supple without obvious mass or JVD. LUNGS: Breath sounds clear to auscultation bilaterally and equal. No wheezes rales or rhonchi. HEART: Regular rate and rhythm without murmurs, rubs or gallops. ABDOMEN: Soft, normoactive bowel sounds. No tenderness to palpation. No guarding, no rebound. No masses appreciated. EXTREMITIES: Mild swelling of the foot. There is no warmth or erythema. Good pulses. Patient has tenderness to the palpitation of the midfoot. Good cap refill. NEUROLOGICAL: Cranial nerves II through XII grossly intact. Normal speech, moving all extremities. PSYCH: Normal mood, normal affect. SKIN: Warm, Dry, normal turgor, no rashes or lesions noted. Course - Re-evaluation Re-evalutation: 04/27/18 12:07 Note: There is no evidence of sepsis or septic arthritis. The presentation is very similar to what he experienced last year (although not as bad) and he improved with prednisone at that time. - Vital Signs Vital signs: Temp Pulse Resp BP Pulse Ox 98.2 F 98 18 124/93 H 96 04/27/18 10:06 04/27/18 10:06 04/27/18 10:04/27/18 10:06 04/27/18 10:06 Doctor's Discharge - Discharge Clinical Impression: Right foot pain Condition: Stable Disposition: HOME, SELF-CARE Additional Instructions: As we discussed, your x-rays look good today. Given the fact that this pain is similar to what she experienced last August, we will treat you with prednisone (this is the medicine that they gave you which ultimately improved your pain). Take the prednisone as described below: take 6 tablets tomorrow, then 5 tabs for 2 days, 4 tabs for 2 days, 3 tabs for 2 days, 2 tabs for 2 days, 1 tab for 2 days. This is a steroid. I want you to call your doctor on Sunday and let them know you have placed on a steroid. Continue your other medicines. Also call your primary care doctor on Sunday for follow-up appointment. The other medicine you are being prescribed is Percocet for pain not relieved by the steroid. The pain medicine you're taking prescribed as a narcotic. There are several important things you should know about this medicine: 1. This medicine contains Tylenol: It is important that you do not take Tylenol (or acetaminophen) while on this medicine. Tylenol is metabolized by the liver and taking too much Tylenol (acetaminophen) can lay to liver damage and even liver failure. 2. Taking narcotics for too long can lead to physical and mental dependence. Take this medicine only if really needed and in the lowest quantity to achieve pain relief. 3. Do not drink alcohol while on this medicine. Alcohol interacts with narcotics and the combination can be dangerous. 4. Do not drive or operate machinery while on this medicine. 5. Narcotics do cause constipation, so drink plenty of fluids and daily stool softeners. Symptoms to return to the emergency room for: Worsening pain, worsening swelling, fever or any concerns or getting worse. Prescriptions: Oxycodone HCl/Acetaminophen [Percocet 5-325 mg Tablet] 1 - 2 tab PO ASDIR PRN # 15 tablet PRN Reason: Prednisone 10 mg PO DAILY 11 Days #36 tablet Referrals: PAM MARIN PA-C [Primary Care Provider] - 04/29/18
--- NOTE | 2018-04-27 11:21 | RADIOLOGY REPORT (SQ) ---
EXAM DESCRIPTION: ANKLE RIGHT AP/LATERAL; FOOT RIGHT 2 VIEWS COMPLETED DATE/TIME: 04/27/2018 11:11 am REASON FOR STUDY: right ankle pain; right foot pain COMPARISON: See below. FINDINGS: Two views right ankle: AP and lateral. No comparisons. Mortise maintained. No evidence of fracture or significant joint effusion. Two views right foot: AP and lateral. 2017 comparison. No fracture. No subluxation or dislocation. No radiopaque foreign body. IMPRESSION: No acute radiographic abnormality in the right foot or right ankle. TECHNICAL DOCUMENTATION: JOB ID: [id number] Reading location - IP/workstation name: [email or web address]
--- NOTE | 2018-04-27 11:21 | RADIOLOGY REPORT (SQ) ---
EXAM DESCRIPTION: ANKLE RIGHT AP/LATERAL; FOOT RIGHT 2 VIEWS COMPLETED DATE/TIME: 04/27/2018 11:11 am REASON FOR STUDY: right ankle pain; right foot pain COMPARISON: See below. FINDINGS: Two views right ankle: AP and lateral. No comparisons. Mortise maintained. No evidence of fracture or significant joint effusion. Two views right foot: AP and lateral. 2017 comparison. No fracture. No subluxation or dislocation. No radiopaque foreign body. IMPRESSION: No acute radiographic abnormality in the right foot or right ankle. TECHNICAL DOCUMENTATION: JOB ID: [id number] Reading location - IP/workstation name: [email or web address]
[2018-04-27] MEDS ORDERED: PREDNISONE 20 MG TABLET PO ONE (11:23)
== END 2018-04-27 11:57 | disposition home or self-care (01) ==
LOC: ER 09:59
DX: M79.671 Pain in right foot (principal); M79.89 Other specified soft tissue disorders; M25.571 Pain in right ankle and joints of right foot; I10 Essential (primary) hypertension; I25.10 Atherosclerotic heart disease of native coronary artery without angina pectoris; E11.9 Type 2 diabetes mellitus without complications; I48.91 Unspecified atrial fibrillation; Z79.01 Long term (current) use of anticoagulants
CPT/HCPCS: 99283; 73600; 73620; J7512

== ENCOUNTER 2019-01-20 11:43 | Emergency (ER) | payer OTHER ==
[2019-01-20] MEDS ORDERED: ASPIRIN 81 MG TABLET, CHEWABLE PO ONE (12:28)
--- NOTE | 2019-01-20 12:30 | ER Document Report ---
ED Medical Screen (RME) - General Chief Complaint: Chest Pressure Stated Complaint: CHEST PRESSURE Time Seen by Provider: 01/20/19 12:23 Primary Care Provider: PAM MARIN PA-C [Primary Care Provider] - Follow up as needed TRAVEL OUTSIDE OF THE [place] IN LAST 30 DAYS: No - HPI Patient complains to provider of: Chest pain Notes: 01/20/19 12:29 Patient here with complaints of chest pressure. States the pain started yesterday. He went to the [place] to have an EKG done and was sent to the emergency department. He does complain of some mild chest pressure and some occasional sharp pain. He has a history of congestive heart failure. He is also on Coumadin, but is not sure why he takes Coumadin. EKG today shows a right bundle branch block which is changed from previous EKG in our system. Exam No distress, nontoxic-appearing. Lungs clear and equal throughout. Heart sounds normal. Trace pitting edema to the bilateral lower extremities. Plan CBC, CMP, troponin, BNP, CPK, CK-MB, EKG, chest x-ray, INR. An initial examination was made on the patient as part of the triage process, and it was determined a more comprehensive evaluation was necessary. Initial labs were ordered and patient was transferred to another provider in the ED who assumed care and finished evaluation and plan. - Related Data Allergies/Adverse Reactions: No Known Allergies Allergy (Verified 01/20/19 11:45) Past Medical History - Social History Family history: None - Past Medical History Cardiac Medical History: Reports: Hx Atrial Fibrillation, Hx Congestive Heart Failure, Hx Coronary Artery Disease, Hx Hypercholesterolemia, Hx Hypertension Pulmonary Medical History: Reports: Hx Sleep Apnea Endocrine Medical History: Reports: Hx Diabetes Mellitus Type 2 Renal/ Medical History: Denies: Hx Peritoneal Dialysis Musculoskeltal Medical History: Reports Hx Arthritis Psychiatric Medical History: Denies: Hx Depression Past Surgical History: Reports: Hx Appendectomy, Hx Orthopedic Surgery - knee - Immunizations History of Influenza Vaccine for 07/2017 - 11/2017 Season: No Influenza Administration Date for 07/2017 - 11/2017 Season: 08/22/17 Physical Exam - Vital signs Vitals: Temp Pulse Resp BP Pulse Ox 97.5 F 75 14 138/90 H 95 01/20/19 11:58 01/20/19 11:58 01/20/19 11:58 01/20/19 11:58 01/20/19 11:58 Course - Vital Signs Vital signs: Temp Pulse Resp BP Pulse Ox 97.5 F 75 14 138/90 H 95 01/20/19 11:58 01/20/19 11:58 01/20/19 11:58 01/20/19 11:58 01/20/19 11:58 Doctor's Discharge - Discharge Referrals: PAM MARIN PA-C [Primary Care Provider] - Follow up as needed
--- NOTE | 2019-01-20 12:57 | RADIOLOGY REPORT (SQ) ---
EXAM DESCRIPTION: CHEST SINGLE VIEW COMPLETED DATE/TIME: 01/20/2019 12:48 pm REASON FOR STUDY: cp COMPARISON: CT chest 11/15/2017 Chest films 11/15/2017 EXAM PARAMETERS: NUMBER OF VIEWS: One view. TECHNIQUE: Single frontal radiographic view of the chest acquired. RADIATION DOSE: NA LIMITATIONS: None. FINDINGS: LUNGS AND PLEURA: No opacities, masses or pneumothorax. No pleural effusion. MEDIASTINUM AND HILAR STRUCTURES: No masses. Contour normal. HEART AND VASCULAR STRUCTURES: Heart normal in size. Normal vasculature. BONES: No acute findings. HARDWARE: None in the chest. OTHER: No other significant finding. IMPRESSION: NO ACUTE RADIOGRAPHIC FINDING IN THE CHEST. TECHNICAL DOCUMENTATION: JOB ID: [id number] [employer]- All Rights Reserved Reading location - IP/workstation name: [email or web address]
[2019-01-20 15:08] LABS: ABSOLUTE BASOPHILS # (AUTO) 0.1 10^3/uL (0.0-0.2); ABSOLUTE EOSINOPHILS # (AUTO) 0.2 10^3/uL (0.0-0.6); ABSOLUTE LYMPHOCYTES (AUTO) 2.4 10^3/uL (0.5-4.7); ABSOLUTE MONOCYTES (AUTO) 0.7 10^3/uL (0.1-1.4); ABSOLUTE NEUT (AUTO) 6.2 10^3/uL (1.7-8.2); BASOPHILS % (AUTO) 0.6 % (0-2); EOSINOPHILS % (AUTO) 2.6 % (0-6); HEMATOCRIT 42.5 % (37.9-51.0); HEMOGLOBIN 14.4 g/dL (13.5-17.0); LYMPHOCYTES % (AUTO) 24.8 % (13-45); MEAN CORPUSCULAR HEMOGLOBIN 30.9 pg (27.0-33.4); MEAN CORPUSCULAR HGB CONC 33.9 g/dL (32.0-36.0); MEAN CORPUSCULAR VOLUME 91 fl (80-97); MONOCYTES % (AUTO) 7.8 % (3-13); PLATELET COUNT 211 10^3/uL (150-450); RED BLOOD COUNT 4.66 10^6/uL (4.35-5.55); RED CELL DISTRIBUTION WIDTH 14.5 % (11.5-14.0); SEGMENTED NEUTROPHILS % (AUTO) 64.2 % (42-78); TOTAL CELLS COUNTED % (AUTO) 100 %; WHITE BLOOD COUNT 9.6 10^3/uL (4.0-10.5)
[2019-01-20 15:15] LABS: PROTHROMBIN TIME 24.6 SEC (11.4-15.4)
--- NOTE | 2019-01-20 15:23 | EKG REPORT ---
SEVERITY:- ABNORMAL ECG - SINUS RHYTHM RIGHT BUNDLE BRANCH BLOCK NEW ST-T CHANGES INFERIOR LEADS. : Confirmed by: Harley Cruz MD 20-Jan-2019 15:22:26
[2019-01-20 15:33] LABS: ALANINE AMINOTRANSFERASE 28 U/L (21-72); ALBUMIN 4.1 g/dL (3.5-5.0); ALKALINE PHOSPHATASE 144 U/L (38-126); ANION GAP 8 (5-19); ASPARTATE AMINO TRANSFERASE 20 U/L (17-59); BILIRUBIN,DIRECT 0.2 mg/dL (0.0-0.4); BILIRUBIN,TOTAL 0.7 mg/dL (0.2-1.3); BLOOD UREA NITROGEN 23 mg/dL (7-20); CALCIUM 9.8 mg/dL (8.4-10.2); CARBON DIOXIDE 25 mmol/L (22-30); CHLORIDE 109 mmol/L (98-107); CREATINE KINASE 229 U/L (55-170); GLUCOSE 82 mg/dL (75-110); SODIUM 142.4 mmol/L (137-145); TOTAL PROTEIN 7.5 g/dL (6.3-8.2)
[2019-01-20 15:43] LABS: CREATINE KINASE MB 1.14 ng/mL (<4.55); NT PRO BNP 166 pg/mL (5-900)
[2019-01-20 15:45] LABS: TROPONIN I < 0.012 ng/mL
--- NOTE | 2019-01-20 17:25 | ER Document Report ---
ED Cardiac - General Chief Complaint: Chest Pressure Stated Complaint: CHEST PRESSURE Time Seen by Provider: 01/20/19 12:23 Primary Care Provider: PAM MARIN PA-C [NO LOCAL MD] - Follow up as needed Notes: 58-year-old male to the emergency department chief complaint of chest pain. States he has had chest pain on and off for several weeks. Went to his primary care doctor today and sent to the ER for evaluation. 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 States that he had a cardiac catheterization one year ago which was reportedly unremarkable. Patient is currently on Coumadin for A. fib and therapeutic on his INR. States that the pain in his chest is worse when he is lying flat. Seems to do better when he is sitting upright. States that his lower extremity swelling is actually better not worse. Currently does not have any significant pain except when he lays back he feels like he has a little pressure on his chest. Denies any major shortness of breath. TRAVEL OUTSIDE OF THE [place] IN LAST 30 DAYS: No - HPI Patient complains to provider of: Chest tightness Is the pain a: Chronic problem Quality of pain: Mild Severity now: Mild Severity at worst: Mild Chest pain precipitating factors: Lying flat Cardiac risk factors: Diabetes, Hypertension, + Family history, Hx CHF Positive cardiac history: Yes - Related Data Allergies/Adverse Reactions: No Known Allergies Allergy (Verified 01/20/19 11:45) Past Medical History - General Information source: Patient - Social History Smoking Status: Never Smoker Chew tobacco use (# tins/day): No Frequency of alcohol use: None Drug Abuse: None Lives with: Spouse/Significant other Family History: COPD, DM, Hypertension Patient has suicidal ideation: No Patient has homicidal ideation: No - Past Medical History Cardiac Medical History: Reports: Hx Atrial Fibrillation, Hx Congestive Heart Failure, Hx Coronary Artery Disease, Hx Hypercholesterolemia, Hx Hypertension Pulmonary Medical History: Reports: Hx Sleep Apnea Endocrine Medical History: Reports: Hx Diabetes Mellitus Type 2 Renal/ Medical History: Denies: Hx Peritoneal Dialysis Musculoskeletal Medical History: Reports Hx Arthritis Psychiatric Medical History: Denies: Hx Depression Past Surgical History: Reports: Hx Appendectomy, Hx Orthopedic Surgery - knee Review of Systems - Review of Systems Notes: Constitutional: denies: Chills, Diaphoresis, Fever, Malaise, Weakness EENT: denies: Eye discharge, Blurred vision, Tearing, Double vision, Nose congestion, Nose discharge, Throat swelling, Mouth pain Cardiovascular: denies: Palpitations, Heart racing, Orthopnea, Dyspnea, +Chest pain Respiratory: denies: Cough, Hurts to breathe, Wheezing, Shortness of breath Gastrointestinal: denies: Abdominal pain, Diarrhea, Nausea, Vomiting, Black stools, bright red blood in stool Genitourinary: denies: Burning, Dysuria, Discharge, Frequency, Flank pain, Hematuria Musculoskeletal: denies: Joint pain, Joint swelling, Muscle pain, Muscle stiffness, back pain Hematologic/Lymphatic: denies: Anemia, Easy bleeding, Easy bruising, Blood clots Neurological/Psychological: denies: Confusion, Dementia, Depression, Loss of consciousness Skin: No lesions, no masses, no skin breakdown, no abscesses Physical Exam - Vital signs Vitals: Temp Pulse Resp BP Pulse Ox 97.5 F 75 14 138/90 H 95 01/20/19 11:58 01/20/19 11:58 01/20/19 11:58 01/20/19 11:58 01/20/19 11:58 Interpretation: Normal - Notes Notes: Morbidly obese -Chinese male. [facility]. - General General appearance: Appears well, Alert - HEENT Head: Normocephalic, Atraumatic Eyes: Normal Pupils: PERRL - Respiratory Respiratory status: No respiratory distress Chest status: Nontender Breath sounds: Normal Chest palpation: Normal - Cardiovascular Rhythm: Regular Heart sounds: Normal auscultation Murmur: No - Abdominal Inspection: Normal Distension: No distension Bowel sounds: Normal Tenderness: Nontender Organomegaly: No organomegaly - Back Back: Normal, Nontender - Extremities General upper extremity: Normal inspection, Nontender, Normal color, Normal ROM, Normal temperature General lower extremity: Normal inspection, Nontender, Edema - Trace bilateral ankle edema, Normal color, Normal ROM, Normal temperature, Normal weight bearing. No: Christian's sign - Neurological Neuro grossly intact: Yes Cognition: Normal Orientation: AAOx4 Ingalls Coma Scale Eye Opening: Spontaneous Carter Coma Scale Verbal: Oriented Carter Coma Scale Motor: Obeys Commands Ingalls Coma Scale Total: 15 Speech: Normal Motor strength normal: LUE, RUE, LLE, RLE Sensory: Normal - Psychological Associated symptoms: Normal affect, Normal mood - Skin Skin Temperature: Warm Skin Moisture: Dry Skin Color: Normal Course - Re-evaluation Re-evalutation: 01/20/19 18:01 First set of cardiac labs are unremarkable. Will do repeat. EKG today shows a right bundle branch block with some new inferior T wave changes. Has T wave inversion in V3 as well as before. Patient does state that he has intermittent chest pain/pressure. I did review his labs. They are fairly unremarkable. Review of his medical records cardiac catheterization does not reveal any si gnificant luminal defects. Cardiac catheterization was actually less than a year ago. Cardiac catheterization was done on April 302017. There appears to be some mild changes on the EKG as compared to our previous however does have an EKG which he presented with which was dated in August which appears unchanged from the one that we have here today. 01/20/19 19:49 Laboratory 01/20/19 01/20/19 01/20/19 13:40 13:40 13:40 WBC 9.6 RBC 4.66 Hgb 14.4 Hct 42.5 MCV 91 MCH 30.9 MCHC 33.9 RDW 14.5 H Plt Count 211 Seg Neutrophils % 64.2 Lymphocytes % 24.8 Monocytes % 7.8 Eosinophils % 2.6 Basophils % 0.6 Absolute Neutrophils 6.2 Absolute Lymphocytes 2.4 Absolute Monocytes 0.7 Absolute Eosinophils 0.2 Absolute Basophils 0.1 PT 24.6 H INR 2.10 Sodium 142.4 Potassium 4.0 Chloride 109 H Carbon Dioxide 25 Anion Gap 8 BUN 23 H Creatinine 1.67 H Est GFR ( Amer) 52 L Est GFR (Non-Af Amer) 43 L Glucose 82 Calcium 9.8 Total Bilirubin 0.7 Direct Bilirubin 0.2 Neonat Total Bilirubin Not Reportable Neonat Direct Bilirubin Not Reportable Neonat Indirect Bili Not Reportable AST 20 ALT 28 Alkaline Phosphatase 144 H Creatine Kinase 229 H CK-MB (CK-2) Troponin I NT-Pro-B Natriuret Pep Total Protein 7.5 Albumin 4.1 Lipase 01/20/19 01/20/19 01/20/19 13:40 18:12 18:12 WBC RBC Hgb Hct MCV MCH MCHC RDW Plt Count Seg Neutrophils % Lymphocytes % Monocytes % Eosinophils % Basophils % Absolute Neutrophils Absolute Lymphocytes Absolute Monocytes Absolute Eosinophils Absolute Basophils PT INR Sodium Potassium Chloride Carbon Dioxide Anion Gap BUN Creatinine Est GFR ( Amer) Est GFR (Non-Af Amer) Glucose Calcium Total Bilirubin Direct Bilirubin Neonat Total Bilirubin Neonat Direct Bilirubin Neonat Indirect Bili AST ALT Alkaline Phosphatase Creatine Kinase CK-MB (CK-2) 1.14 Troponin I < 0.012 < 0.012 NT-Pro-B Natriuret Pep 166 Total Protein Albumin Lipase 95.4 Chest X-Ray 01/20/19 12:28 IMPRESSION: NO ACUTE RADIOGRAPHIC FINDING IN THE CHEST. Patient has troponin x2 there is normal. Has had a coronary artery angiogram by bracelet maker novelty which is normal and this was done in less than a year ago. At this time I believe patient can be discharged. Will DC at this time. - Vital Signs Vital signs: Temp Pulse Resp BP Pulse Ox 97.5 F 75 22 H 107/73 100 01/20/19 11:58 01/20/19 11:58 01/20/19 19:03 01/20/19 19:03 01/20/19 19:03 - Laboratory Result Diagrams: 01/20/19 13:40 01/20/19 13:40 Laboratory results interpreted by me: 01/20/19 01/20/19 01/20/19 13:40 13:40 13:40 RDW 14.5 H PT 24.6 H Chloride 109 H BUN 23 H Creatinine 1.67 H Est GFR ( Amer) 52 L Est GFR (Non-Af Amer) 43 L Alkaline Phosphatase 144 H Creatine Kinase 229 H Discharge - Discharge Clinical Impression: Chest pain Qualifiers: Chest pain type: unspecified Qualified Code(s): R07.9 - Chest pain, unspecified Condition: Good Disposition: HOME, SELF-CARE Instructions: Chest Pain of Unclear Cause ([facility]) Additional Instructions: Follow-up with your bracelet maker novelty as soon as possible. In the event that your symptoms are getting worse please return. It is possible this is a noncardiac chest pain. Some reasons for this could be a hiatal hernia. The way you are describing her symptoms with chest pain that is worse when lying down and better when sitting up makes me wonder if she could potentially have a hiatal hernia. This would be easily diagnosed with a barium swallow. Please discuss this with your doctor as well. As everything this is our best educated guess as to what is going on. In the event a year having severe chest pain, shortness of breath or any other issues please not hesitate to return immediately. Referrals: PAM MARIN PA-C [NO LOCAL MD] - Follow up as needed
--- NOTE | 2019-01-20 19:42 | EKG REPORT ---
SEVERITY:- ABNORMAL ECG - SINUS RHYTHM RIGHT BUNDLE BRANCH BLOCK LEFT VENTRICULAR HYPERTROPHY : Confirmed by: Harley Cruz MD 20-Jan-2019 19:41:00
--- NOTE | 2019-01-20 20:39 | RADIOLOGY REPORT (SQ) ---
CT HEAD WITHOUT IV CONTRAST HISTORY: Headache. COMPARISON: None. TECHNIQUE: CT scan of the brain without IV contrast. This exam was performed according to our departmental dose-optimization program, which includes automated exposure control, adjustment of the mA and/or kV according to patient size and/or use of iterative reconstruction technique. FINDINGS: There is encephalomalacia involving the right parietal region. There are scattered areas of hypoattenuation within the periventricular white matter, which likely represent chronic microvascular ischemia. No evidence of acute infarction, intracranial hemorrhage, extra-axial fluid collection, or midline shift. No air-fluid levels are seen in the paranasal sinuses to suggest acute sinusitis. No depressed skull fracture. IMPRESSION: 1. No acute intracranial findings. 2. 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
[2019-01-20 21:05] VITALS: BP 126/82
== END 2019-01-20 21:13 | disposition home or self-care (01) ==
LOC: ER 11:43
DX: R07.89 Other chest pain (principal); R60.0 Localized edema; I45.10 Unspecified right bundle-branch block; I25.10 Atherosclerotic heart disease of native coronary artery without angina pectoris; I10 Essential (primary) hypertension; E11.9 Type 2 diabetes mellitus without complications; I48.91 Unspecified atrial fibrillation; Z79.01 Long term (current) use of anticoagulants
CPT/HCPCS: 36415; 70450; 71045; 80053; 82550; 82553; 83690; 83880; 84484; 85025; 85610; 93005; 93010; 99284

== ENCOUNTER 2020-04-14 20:19 | Emergency (ER) | payer OTHER, MEDICARE ==
--- NOTE | 2020-04-14 21:45 | ER Document Report ---
ED Medical Screen (RME) - General Chief Complaint: Hand Pain Stated Complaint: POSSIBLE INSECT BITE Time Seen by Provider: 04/14/20 21:44 Mode of Arrival: Ambulatory Information source: Patient Notes: 59-year-old male presented to ED for paronychia to the right index finger. He states is been painful and swollen for about 3 to 4 days. He states he does have a history of A. fib, high blood pressure, arthritis, and gout. He states he is prediabetic. He is alert oriented respirations regular nonlabored speaking in full sentences. He states he is a former smoker former drinker former use of drugs but none at this time. Patient is alert oriented respirations regular nonlabored speaking in full sentences. He states his main concern is this swelling and pain to the right index finger. I have greeted and performed a rapid initial assessment of this patient. A comprehensive ED assessment and evaluation of the patient, analysis of test results and completion of medical decision making process will be conducted by an additional ED providers. TRAVEL OUTSIDE OF THE [place] IN LAST 30 DAYS: No - Related Data Allergies/Adverse Reactions: No Known Allergies Allergy (Verified 01/20/19 11:45) Past Medical History - Social History Family history: None - Past Medical History Cardiac Medical History: Reports: Hx Atrial Fibrillation, Hx Congestive Heart Failure, Hx Coronary Artery Disease, Hx Hypercholesterolemia, Hx Hypertension Pulmonary Medical History: Reports: Hx Sleep Apnea Endocrine Medical History: Reports: Hx Diabetes Mellitus Type 2 Renal/ Medical History: Denies: Hx Peritoneal Dialysis Musculoskeltal Medical History: Reports Hx Arthritis Psychiatric Medical History: Denies: Hx Depression Past Surgical History: Reports: Hx Appendectomy, Hx Orthopedic Surgery - knee Physical Exam - Vital signs Vitals: Temp Pulse Resp BP Pulse Ox 98.8 F 80 14 136/80 H 97 04/14/20 20:28 04/14/20 20:28 04/14/20 20:28 04/14/20 20:28 04/14/20 20:28 Course - Vital Signs Vital signs: Temp Pulse Resp BP Pulse Ox 98.8 F 80 14 136/80 H 97 04/14/20 20:28 04/14/20 20:28 04/14/20 20:28 04/14/20 20:28 04/14/20 20:28
--- NOTE | 2020-04-14 22:32 | RADIOLOGY REPORT (SQ) ---
CLINICAL INDICATION: Pain right index finger. . TECHNIQUE: 3 view(s) were obtained of the right hand. COMPARISON: None. FINDINGS: No acute displaced fracture is identified of the hand. Alignment appears anatomic. Joint spaces are within normal limits for age. Soft tissue swelling. Old posttraumatic change. IMPRESSION: No evidence of acute bony injury to the hand.
--- NOTE | 2020-04-15 03:16 | ER Document Report ---
HPI - HPI Time Seen by Provider: 04/14/20 21:44 Notes: 59-year-old male presented to ED for paronychia to the right index finger. He states is been painful and swollen for about 3 to 4 days. He states he does have a history of A. fib, high blood pressure, arthritis, and gout. He denies any fevers, chills or drainage from the area. - ROS Systems Reviewed and Negative: Yes All other systems reviewed and negative - REPRODUCTIVE Reproductive: DENIES: : - DERM Skin Problems: Pustule - R index finger Past Medical History - General Information source: Patient - Social History Smoking Status: Never Smoker Family History: COPD, DM, Hypertension - Past Medical History Cardiac Medical History: Reports: Hx Atrial Fibrillation, Hx Congestive Heart Failure, Hx Coronary Artery Disease, Hx Hypercholesterolemia, Hx Hypertension Pulmonary Medical History: Reports: Hx Sleep Apnea Endocrine Medical History: Reports: Hx Diabetes Mellitus Type 2 Renal/ Medical History: Denies: Hx Peritoneal Dialysis Musculoskeletal Medical History: Reports Hx Arthritis Psychiatric Medical History: Denies: Hx Depression Past Surgical History: Reports: Hx Appendectomy, Hx Orthopedic Surgery - knee Vertical Provider Document - CONSTITUTIONAL Notes: PHYSICAL EXAMINATION: GENERAL: Well-appearing, well-nourished and in no acute distress. HEAD: Atraumatic, normocephalic. EYES: Pupils equal round and reactive to light, extraocular movements intact, conjunctiva are normal. ENT: Nares patent, oropharynx clear without exudates. Moist mucous membranes. NECK: Normal range of motion, supple without lymphadenopathy LUNGS: Breath sounds clear to auscultation bilaterally and equal. No wheezes rales or rhonchi. HEART: Regular rate and rhythm without murmurs ABDOMEN: Soft, nontender, nondistended abdomen. No guarding, no rebound. No masses appreciated. Female : deferred Musculoskeletal: Normal range of motion, no pitting or edema. No cyanosis. NEUROLOGICAL: Cranial nerves grossly intact. Normal speech, normal gait. Normal sensory, motor exams PSYCH: Normal mood, normal affect. SKIN: Paronychia to right index finger. - INFECTION CONTROL TRAVEL OUTSIDE OF THE [place] IN LAST 30 DAYS: No Course - Re-evaluation Re-evalutation: Paronychia incised and drained. Patient tolerated well, see procedure note. Patient will be started on Bactrim. ED return precautions discussed. - Vital Signs Vital signs: Temp Pulse Resp BP Pulse Ox 97.6 F 74 14 132/89 H 97 04/15/20 00:37 04/15/20 00:37 04/14/20 20:28 04/15/20 00:37 04/15/20 00:37 Procedures - Incision and Drainage R index finger Type: Simple Anesthetic type: 1% Lidocaine Blade size: 11 I&D procedure: Betadine prep applied Incision Method: Incision made by scalpel Discharge - Discharge Clinical Impression: Paronychia Condition: Stable Disposition: HOME, SELF-CARE Additional Instructions: Paronychia You have an infection between the nail and the surrounding skin, called a paronychia. The germs infect the area after a minor skin injury, such as a hangnail. This infection is treated by releasing the pus. This is usually done by the skin from the nail. If the infection has spread underneath the nail, partial removal of the nail may be necessary. Hot-soak the area three or four times daily. Antibiotics are often given, but are not always necessary. Healing takes about a week. If pain or swelling becomes severe or if you develop fever or chills, call the doctor or return for re-examination. Prescriptions: Sulfamethoxazole/Trimethoprim [Bactrim Ds Tablet] 1 tab PO BID #14 tablet [facility]: [facility] [Primary [facility] Provider] - Follow up as needed
[2020-04-15 04:27] VITALS: BP 133/83
== END 2020-04-15 04:27 | disposition home or self-care (01) ==
LOC: ER 20:19
DX: L03.011 Cellulitis of right finger (principal); E11.9 Type 2 diabetes mellitus without complications; I10 Essential (primary) hypertension; I25.10 Atherosclerotic heart disease of native coronary artery without angina pectoris
CPT/HCPCS: 99283